=== PATIENT | female | born 1970 | race Caucasian/White ===

== ENCOUNTER 2020-04-19 16:01 | Outpatient (CLI) | payer OTHER, SELFPAY | END 2020-04-19 16:02 | disposition home or self-care (01) | LOC: ANHCOVIDVC 16:01 | PROVIDERS: PCP Family Medicine | DX: Z23 Encounter for immunization (principal) | CPT/HCPCS: 0001A; 91300 ==

== ENCOUNTER 2020-05-10 16:04 | Outpatient (CLI) | payer OTHER, SELFPAY | END 2020-05-10 16:05 | disposition home or self-care (01) | LOC: ANHCOVIDVC 16:04 | PROVIDERS: PCP Family Medicine | DX: Z23 Encounter for immunization (principal) | CPT/HCPCS: 0002A; 91300 ==

== ENCOUNTER 2021-05-08 01:38 | Day surgery (SDC) | payer OTHER, SELFPAY ==
[2021-05-01 16:08] VITALS: BMI 40.8
--- NOTE | 2021-05-07 14:49 | PM.HPGS ---
History of Present Illness History of Present Illness Consent: Risks, benefits, and alternatives have been discussed and questions answered. Patient agrees to proceed with procedure. Chief complaint: neoplasm screening Narrative: Sandra Soliman is a 51 year old female referred for colon cancer screening. Review of Systems Review of Systems: All systems reviewed & are unremarkable except as noted in HPI and below PMFSH Social History Social History Smoking status: Never smoker Alcohol intake: former Substance use: never Substance use type: does not use Living arrangements: with family Spiritual care concerns: No Meds Home Medications and Allergies Home Medications Medication Instructions Recorded Confirmed Type amlodipine 5 mg PO DAILY 05/01/21 05/01/21 History aripiprazole 15 mg PO DAILY 05/01/21 05/01/21 History bupropion HCl 150 mg PO DAILY 05/01/21 05/01/21 History cyanocobalamin (vitamin B-12) 1,000 mcg IM MONTHLY 05/01/21 05/01/21 History doxepin 25 mg PO QPM 05/01/21 05/01/21 History ferrous gluconate 240 mg PO BID 05/01/21 05/01/21 History fluoxetine 60 mg PO DAILY 05/01/21 05/01/21 History gabapentin 300 mg PO QPM 05/01/21 05/01/21 History meclizine 25 mg PO PRN PRN 05/01/21 05/01/21 History metoprolol succinate 100 mg PO DAILY 05/01/21 05/01/21 History pantoprazole 40 mg PO DAILY 05/01/21 05/01/21 History topiramate 50 mg PO BID 05/01/21 05/01/21 History trazodone 50 mg PO HS PRN 05/01/21 05/01/21 History Allergies Allergy/AdvReac Type Severity Reaction Status Date / Time Sulfa (Sulfonamide Allergy Mild HYPER Verified 11/08/18 10:50 Antibiotics) codeine AdvReac Mild Gastrointestinal Verified 05/01/21 16:09 Upset Exam Resp: Auscultation: clear to auscultation bilaterally Cardio: Rate: regular rate Rhythm: regular rhythm GI: GI Palp: Yes Soft to palpation and No Tenderness to palpation present (GI) Assessment and Plan Assessment and plan (1) Colon cancer screening: Code(s): Z12.11 - Encounter for screening for malignant neoplasm of colon Status: Acute Assessment and Plan: Colonoscopy with possible biopsy or polypectomy or cautery or injection of substances.
[2021-05-08 12:21] VITALS: BP 142/90; PULSE 77; RESP 17; TEMP 36.1; O2SAT 96; BMI 40.1
[2021-05-08] MEDS: LACTATED RINGERS 1,000 ML 150 ML IV CONT (12:25)
--- NOTE | 2021-05-08 13:21 | P.PNAN_ITS ---
Anes - Initial Pre Proc Eval Procedure: Operation Date: 05/08/21 13:30 Proposed Procedures p Screening Colonoscopy - Max Nath MD Date/Time: 05/08/21 13:21 Surgeon: Max Nath MD Pre Op Diagnosis: neoplasm screening Patient Data Age: 51 Gender: F Height: 1.65 m Weight: 109.6 kg Last Vital Signs Temp 97 F L 05/08/21 12:21 Pulse 77 05/08/21 12:21 Resp 17 05/08/21 12:21 BP 142/90 H 05/08/21 12:21 Pulse Ox 96 05/08/21 12:21 Allergies Allergy/AdvReac Type Severity Reaction Status Date / Time Sulfa (Sulfonamide Allergy Mild HYPER Verified 05/08/21 12:19 Antibiotics) escitalopram Allergy Unknown Verified 05/08/21 12:19 codeine AdvReac Mild Gastrointestinal Verified 05/08/21 12:19 Upset lisinopril AdvReac Cough Verified 05/08/21 12:19 Home Medications Medication Instructions Recorded Confirmed Type amlodipine 5 mg PO DAILY 05/01/21 05/08/21 History aripiprazole 15 mg PO DAILY 05/01/21 05/08/21 History bupropion HCl 150 mg PO DAILY 05/01/21 05/08/21 History cyanocobalamin (vitamin B-12) 1,000 mcg IM MONTHLY 05/01/21 05/08/21 History doxepin 25 mg PO QPM 05/01/21 05/08/21 History ferrous gluconate 240 mg PO BID 05/01/21 05/08/21 History fluoxetine 60 mg PO DAILY 05/01/21 05/08/21 History gabapentin 300 mg PO QPM 05/01/21 05/08/21 History meclizine 25 mg PO PRN PRN 05/01/21 05/08/21 History metoprolol succinate 100 mg PO DAILY 05/01/21 05/08/21 History pantoprazole 40 mg PO DAILY 05/01/21 05/08/21 History topiramate 50 mg PO BID 05/01/21 05/08/21 History trazodone 50 mg PO HS PRN 05/01/21 05/08/21 History Patient hx anesthesia problems: none Family hx anesthesia problems: none Results Review: All pre-operative results and documents have been reviewed as part of the pre-operative evaluation. [facility] Social History Social History Smoking status: Never smoker Alcohol intake: former Substance use: never Substance use type: does not use Living arrangements: with family Spiritual care concerns: No Anes - Eval Final PreProcedure Day of Procedure 05/08/21 13:21 Patient weight: morbidly obese Heart: regular rate and rhythm Lungs: clear to auscultation Airway: Mallampati scale class III Neurological: alert and oriented Last oral intake: >/= 8 hours ASA classification: IV Emergent: no Anesthetic plan: proceed Anesthesia type and monitoring: general GIVS and standard monitoring Results Review: All pre-operative results and documents have been reviewed as part of the pre-operative evaluation. Informed Consent: The patient's anesthetic plan and its attendant risks and benefits were discussed with the patient/family/POA. Questions were solicited and answers provided to the satisfaction of the patient/family/POA.
[2021-05-08 13:54] VITALS: BP 84/50; PULSE 65; RESP 14; O2SAT 96
[2021-05-08 14:04] VITALS: BP 91/50; PULSE 66; RESP 16; O2SAT 96
[2021-05-08 14:14] VITALS: BP 101/60; PULSE 72; RESP 18; O2SAT 99
== END 2021-05-08 14:28 | disposition home or self-care (01) ==
PROVIDERS: PCP Family Medicine; Visit Provider Internal Medicine Gastroenterology
PROC: 0DJD8ZZ Inspection of Lower Intestinal Tract, Via Natural or Artificial Opening Endoscopic (ICD-10-PCS; CPT 45378; principal; 2021-05-08 13:30)
DX: Z12.11 Encounter for screening for malignant neoplasm of colon (principal); K57.30 Diverticulosis of large intestine without perforation or abscess without bleeding; K63.5 Polyp of colon; E66.01 Morbid (severe) obesity due to excess calories; Z68.41 Body mass index [BMI] 40.0-44.9, adult
CPT/HCPCS: 45385; 88305; J2704; J7120

== ENCOUNTER 2021-09-13 10:21 | Emergency (ER) | payer OTHER, SELFPAY ==
[2021-09-13 10:37] VITALS: BP 139/82; PULSE 85; RESP 18; TEMP 36.8; O2SAT 97
--- NOTE | 2021-09-13 11:28 | PC.NURSE ---
11:21- Contacted spouse Nico , with pts permission to verify current medication list.
--- NOTE | 2021-09-13 11:56 | ED.GENADULT ---
HPI - General Adult General Chief complaint: Upper Respiratory Infection Stated complaint: covid symptoms History of Present Illness HPI narrative: Patient is a 51-year-old obese female who presents to the [facility] via POV for evaluation of COVID-like symptoms X5 days. Additionally, she reports chest congestion, chest feels tight , and vomiting. She reports 2 episodes of vomiting clear liquid since onset. Vomiting is what prompted today's visit. She was exposed to COVID by her daughter. Mucinex provides some relief. Dairy products worsen symptoms. She denies a history of liver and kidney insufficiency. She is fully vaccinated against COVID. She has not received booster. Patient reports she was hospitalized for COVID and 2019. She states her hospitalization duration was approximately 2 weeks. Related Data Home Medications Medication Instructions Recorded Confirmed amlodipine 5 mg tablet 5 mg PO DAILY 05/01/21 09/13/21 aripiprazole 15 mg tablet 15 mg PO DAILY 05/01/21 09/13/21 bupropion HCl 150 mg 24 hr tablet, 150 mg PO DAILY 05/01/21 09/13/21 extended release doxepin 25 mg capsule 25 mg PO QPM 05/01/21 09/13/21 ferrous gluconate 240 mg (27 mg 240 mg PO BID 05/01/21 09/13/21 iron) tablet fluoxetine 20 mg capsule 60 mg PO DAILY 05/01/21 09/13/21 gabapentin 300 mg capsule 300 mg PO QPM 05/01/21 09/13/21 metoprolol succinate 100 mg 100 mg PO DAILY 05/01/21 09/13/21 tablet,extended release 24 hr pantoprazole 40 mg tablet,delayed 40 mg PO DAILY 05/01/21 09/13/21 release topiramate 50 mg tablet 50 mg PO BID 05/01/21 09/13/21 risperidone 1 mg tablet (Risperdal) 1 mg PO HS 09/13/21 09/13/21 Allergies Allergy/AdvReac Type Severity Reaction Status Date / Time Sulfa (Sulfonamide Allergy Mild HYPER Verified 09/13/21 10:53 Antibiotics) escitalopram Allergy Unknown Verified 09/13/21 10:53 codeine AdvReac Mild Gastrointestinal Verified 09/13/21 10:53 Upset lisinopril AdvReac Cough Verified 09/13/21 10:53 Review of Systems Review of Systems: Denies history of COPD, bronchitis, asthma, and pneumonia. Denies current/past tobacco use. Pertinent negatives: fever, sweats, chills, change in appetite, fatigue, skin color changes, headache, nasal congestion/discharge, dizziness, lymphadenopathy, sinus problems, ear pain/drainage, chest pain, heart murmurs, heart palpitations, shortness of breath, wheezing, cyanosis, hemoptysis, hoarseness, orthopnea, pleuritic pain, nausea, vomiting, diarrhea, and myalgias. PMF Past Medical History Medical History (Updated 09/13/21 @ 12:14 by NEHEMIAH Hayden, ) Anxiety Depression GERD (gastroesophageal reflux disease) Social History Social History Smoking status: Never smoker Alcohol intake: former Substance use: never Substance use type: does not use Spiritual care concerns: No Exam Narrative: GENERAL: Well-appearing, well-nourished, and in no acute distress. HEAD: Normocephalic, atraumatic. No sinus tenderness or facial swelling appreciated. EYES: PERRLA and EOMI. No evidence of erythema, swelling, or drainage. ENT: Bilateral external ears and ear canals normal. Bilateral TMs are normal.No TM perforation. Nares clear, no rhinorrhea or epistaxis. Bilateral turbinates are moderately erythematous and swollen. Mucous membranes moist and pink. Uvula is midline without erythema and swelling. No evidence of petechial rash, cobblestoning, lesions, ulcers, erythema, swelling, exudates, peritonsillar abscess, tenting, or drooling. Breath odor and voice normal. NECK: Supple. No Lymphadenopathy or nuchal rigidity appreciated. CHEST: Bilateral lung shi are clear to auscultation. No respiratory distress. No evidence of cough or pleuritic cp upon examination. HEART: Regular rate and rhythm. No murmur, gallop, or rub heard. EXTREMITIES: Normal range of motion. No edema. SKIN: Warm, dry, no
== END 2021-09-13 11:51 | disposition home or self-care (01) ==
PROVIDERS: Emergency Provider Nurse Practitioner Family; PCP Family Medicine
DX: U07.1 COVID-19 (principal); K21.9 Gastro-esophageal reflux disease without esophagitis; F41.9 Anxiety disorder, unspecified; F32.A Depression, unspecified
CPT/HCPCS: 87426; 99213; C9803; G0463

== ENCOUNTER 2021-10-18 10:04 | Emergency (ER) | payer OTHER, SELFPAY ==
--- NOTE | 2021-10-18 10:14 | ED.BACK ---
HPI - Back Pain/Injury General Chief Complaint: Skin/Abscess/Foreign Body Stated Complaint: Lower Back Time Seen by Provider: 10/18/21 10:14 History of Present Illness HPI Narrative: Sandra Soliman is a 51 yo female with tension, GERD, anxiety depression, who comes here with an infected cyst on the right mid back; area 5x5 area, firm, tender- stated started yesterday Related Data Home Medications Medication Instructions Recorded Confirmed amlodipine 5 mg tablet 5 mg PO DAILY 05/01/21 10/18/21 aripiprazole 15 mg tablet 15 mg PO DAILY 05/01/21 10/18/21 bupropion HCl 150 mg 24 hr tablet, 150 mg PO DAILY 05/01/21 09/13/21 extended release doxepin 25 mg capsule 25 mg PO QPM 05/01/21 09/13/21 ferrous gluconate 240 mg (27 mg 240 mg PO BID 05/01/21 10/18/21 iron) tablet fluoxetine 20 mg capsule 60 mg PO DAILY 05/01/21 10/18/21 gabapentin 300 mg capsule 300 mg PO QPM 05/01/21 09/13/21 metoprolol succinate 100 mg 100 mg PO DAILY 05/01/21 10/18/21 tablet,extended release 24 hr pantoprazole 40 mg tablet,delayed 40 mg PO DAILY 05/01/21 10/18/21 release topiramate 50 mg tablet 50 mg PO BID 05/01/21 09/13/21 risperidone 1 mg tablet (Risperdal) 1 mg PO HS 09/13/21 10/18/21 syringe with needle 3 mL 25 x 5/8 10/18/21 10/18/21 (BD Luer-Sree Syringe) terbinafine HCl 250 mg tablet 250 mg PO DAILY 10/18/21 10/18/21 Allergies Allergy/AdvReac Type Severity Reaction Status Date / Time Sulfa (Sulfonamide Allergy Mild HYPER Verified 10/18/21 10:06 Antibiotics) escitalopram Allergy Unknown Verified 10/18/21 10:06 codeine AdvReac Mild Gastrointestinal Verified 10/18/21 10:06 Upset lisinopril AdvReac Cough Verified 10/18/21 10:06 Review of Systems Review of Systems: CONSTITUTIONAL: Denies fever, chills, sweats. EYES: Denies visual changes, redness, discharge. ENT: Denies rhinorrhea, congestion, sore throat, otalgia. CARDIOVASCULAR: Denies chest pain, palpitations, edema. RESPIRATORY: Denies dyspnea, wheezing, cough GASTROINTESTINAL: Denies abdominal pain, nausea, vomiting, diarrhea. GENITOURINARY: Denies dysuria, hematuria, abnormal discharge SKIN: Denies rash or itching. Cyst on mid right back NEUROLOGIC: Denies numbness, or focal weakness. PSYCHIATRIC: Denies anxiety or depression. [facility] Past Medical History Medical History Anxiety Depression GERD (gastroesophageal reflux disease) Social History Social History Smoking status: Never smoker Alcohol intake: former Substance use: never Substance use type: does not use Spiritual care concerns: No Comments At time of signature, I agree with nursing past medical, surgical, social and family history. There is no relevant family history pertinent to the presenting complaint. Exam Narrative: GENERAL: This is a well-nourished, well-developed patient, in mild distress. Flat affect HEAD: normocephalic, atraumatic. EYES: PERRL. Sclera clear/white. Vision is grossly intact. EARS: External ears normal, auditory canals clear and without drainage, TMs normal without perforation. Hearing grossly intact. NOSE: External nose normal without nasal discharge, nares without redness, no rhinorrhea. THROAT: Mucous membranes moist, NECK: Neck supple, non-tender CARDIOVASCULAR: Regular rate and rhythm without murmurs, gallops, or rubs. RESPIRATORY: Clear to auscultation. Breath sounds equal bilaterally. No wheezes, rales, or rhonchi. GASTROINTESTINAL: Not done, SKIN: warm, intact with no suspicious lesions or rash, good texture and turgor. Infected cyst on right mid back that is tender measures 5 x 5, fluctuant NEURO: awake, alert, and oriented to person, place and time. There were no obvious focal neurologic abnormalities. Steady gait EXTREMITIES: Normal range of motion. BACK: Nontender without deformity Course Course Emergency Course: Patient here with
[2021-10-18 10:17] VITALS: BP 138/88; PULSE 74; RESP 18; TEMP 36.8; O2SAT 97
[2021-10-18 10:24] VITALS: BP 138/88; PULSE 74; RESP 18; TEMP 36.8; O2SAT 97
== END 2021-10-18 10:53 | disposition home or self-care (01) ==
PROVIDERS: Emergency Provider Nurse Practitioner; PCP Family Medicine
DX: L02.212 Cutaneous abscess of back [any part, except buttock and flank] (principal); K21.9 Gastro-esophageal reflux disease without esophagitis; F41.9 Anxiety disorder, unspecified; F32.A Depression, unspecified
CPT/HCPCS: 10060; 87070; 87075; 87076; 87205; 99213; G0463

== ENCOUNTER 2021-11-14 11:03 | Emergency (ER) | payer OTHER, SELFPAY ==
[2021-11-14 11:12] VITALS: BP 130/77; PULSE 77; RESP 24; TEMP 37; O2SAT 98
[2021-11-14 11:16] VITALS: BP 130/77; PULSE 77; RESP 24; TEMP 37; O2SAT 98
--- NOTE | 2021-11-14 11:20 | ED.FEMALEGU ---
HPI - Female Genitourinary General Chief complaint: Urogenital-Female Stated complaint: Possible UTI Time Seen by Provider: 11/14/21 11:20 Source: patient Mode of arrival: ambulatory Limitations: no limitations History of Present Illness HPI Narrative: Ms. Teran is a 51-year-old female patient presenting to the clinic today with complaints of possible UTI. She reports that last night she began having some urinary urgency, frequency and possibly some blood from the urine. She reports that this continued throughout the night into today she also reports some left flank pain without fever or chills. She denies using any Azo or Pyridium. Related Data Home Medications Medication Instructions Recorded Confirmed amlodipine 5 mg tablet 5 mg PO DAILY 05/01/21 11/14/21 aripiprazole 15 mg tablet 15 mg PO DAILY 05/01/21 11/14/21 bupropion HCl 150 mg 24 hr tablet, 150 mg PO DAILY 05/01/21 11/14/21 extended release doxepin 25 mg capsule 25 mg PO QPM 05/01/21 11/14/21 ferrous gluconate 240 mg (27 mg 240 mg PO BID 05/01/21 11/14/21 iron) tablet fluoxetine 20 mg capsule 60 mg PO DAILY 05/01/21 11/14/21 gabapentin 300 mg capsule 300 mg PO QPM 05/01/21 11/14/21 metoprolol succinate 100 mg 100 mg PO DAILY 05/01/21 11/14/21 tablet,extended release 24 hr pantoprazole 40 mg tablet,delayed 40 mg PO DAILY 05/01/21 11/14/21 release topiramate 50 mg tablet 50 mg PO BID 05/01/21 11/14/21 risperidone 1 mg tablet (Risperdal) 1 mg PO HS 09/13/21 11/14/21 syringe with needle 3 mL 25 x 5/8 10/18/21 10/18/21 (BD Luer-Sree Syringe) terbinafine HCl 250 mg tablet 250 mg PO DAILY 10/18/21 11/14/21 Allergies Allergy/AdvReac Type Severity Reaction Status Date / Time Sulfa (Sulfonamide Allergy Mild HYPER Verified 11/14/21 11:09 Antibiotics) escitalopram Allergy Unknown Verified 11/14/21 11:09 codeine AdvReac Mild Gastrointestinal Verified 11/14/21 11:09 Upset lisinopril AdvReac Cough Verified 11/14/21 11:09 Review of Systems Review of Systems: Pertinent positives per HPI. Patient denies any fever, chills, rash, headache, visual changes, dizziness, cough, runny nose, sore throat, shortness of breath, chest pain, palpitations, nausea, vomiting, diarrhea, constipation, PMFSH Past Medical History Medical History Anxiety Depression GERD (gastroesophageal reflux disease) Social History Social History Smoking status: Never smoker Alcohol intake: former Substance use: never Substance use type: does not use Spiritual care concerns: No Comments At the time of my signature, I reviewed and agree with the nursing past medical, surgical, social, and family history. There is no relevant family history pertinent to the patient complaint. Exam Narrative: General: Well-developed, well nourished, in no apparent distress. Head: Normocephalic, atraumatic. Cardio: Regular rate and rhythm, s1 and s2 normal, no murmur appreciated. Resp: Clear to auscultation bilaterally, no rhonchi, rales, wheezing or rubs. Abdomen: Soft, pliable, bowel sounds present in all quadrants, tender to palpation over the suprapubic area, no organomegly, positive left CVAT tenderness. Course Course Emergency Course: Portions of this record may have been created with voice recognition software. Level of Care: Express Care Visit Vital Signs Vital signs: Vital Signs Temperature 37.0 C 11/14/21 11:12 Pulse Rate 77 11/14/21 11:12 Respiratory Rate 24 H 11/14/21 11:12 Blood Pressure 130/77 11/14/21 11:12 Pulse Oximetry 98 11/14/21 11:12 Oxygen Delivery Room Air 11/14/21 11:12 Temperature 37.0 C 11/14/21 11:16 Pulse Rate 77 11/14/21 11:16 Respiratory Rate 24 H 11/14/21 11:16 Blood Pressure 130/77 11/14/21 11:16 Pulse Oximetry 98 11/14/21 11:16 Oxygen Delivery Room Air 11/14/21 11:16 Queta
== END 2021-11-14 11:29 | disposition home or self-care (01) ==
PROVIDERS: Emergency Provider Nurse Practitioner Family; PCP Family Medicine
DX: N12 Tubulo-interstitial nephritis, not specified as acute or chronic (principal); F41.9 Anxiety disorder, unspecified; F32.A Depression, unspecified; K21.9 Gastro-esophageal reflux disease without esophagitis
CPT/HCPCS: 81003; 87077; 87086; 87186; 99213; G0463

== ENCOUNTER 2023-01-07 08:32 | Emergency (ER) | payer OTHER, SELFPAY ==
--- NOTE | ~2023-01-07 | XR_ITS ---
EXAMINATION: XR abdomen/kub 1V DATE: 01/07/2023 08:56 INDICATION: Right flank pain. TECHNIQUE: A supine view of the abdomen on 2 radiographs was obtained. COMPARISON: CT abdomen and pelvis 05/18/2009 FINDINGS: There are no dilated loops of bowel. There is a small volume of stool in the colon. There i s no visible urolithiasis. IMPRESSION: 1. No visible urolithiasis. Reviewed, dictated and finalized at location A. NIC CHEMIST IMPRESSION: 1. No visible urolithiasis.
--- NOTE | 2023-01-07 08:34 | ED.URI ---
HPI - URI/Sore Throat General Chief Complaint: Ear Stated Complaint: Rt Side Pain,Bilateral Ear Irritation Time Seen by Provider: 01/07/23 08:33 Source: patient Mode of arrival: ambulatory Limitations: no limitations History of Present Illness HPI Narrative: Sandra is a 52-year-old female patient presenting to the clinic today with complaints of right-side pain and bilateral ear discomfort. She reports right side pain is been going on for approximately 2 weeks. States the pain is worse when she stands up. Pain is a sharp pain and rates it a 6/10 when it occurs and it is pretty constant. Also reports some urinary frequency. Denies any burning or incontinence. Bilateral ear irritation x 1 week. Denies any fever, chills, nasal congestion, or sore throat. Denies any blood in her stool or urine. Has been having less frequent bowel movements-normally has bowel movements daily but over the past few weeks she has been having it every 2 days. No diarrhea or hard stools. History of UTIs, kidney stones, GERD, hypertension, anxiety, and depression. Has had right ovary removed Related Data Home Medications Medication Instructions Recorded Confirmed amlodipine 5 mg tablet 5 mg PO DAILY 05/01/21 11/14/21 aripiprazole 15 mg tablet 15 mg PO DAILY 05/01/21 11/14/21 bupropion HCl 150 mg 24 hr tablet, 150 mg PO DAILY 05/01/21 11/14/21 extended release doxepin 25 mg capsule 25 mg PO QPM 05/01/21 11/14/21 ferrous gluconate 240 mg (27 mg 240 mg PO BID 05/01/21 11/14/21 iron) tablet fluoxetine 20 mg capsule 60 mg PO DAILY 05/01/21 11/14/21 gabapentin 300 mg capsule 300 mg PO QPM 05/01/21 11/14/21 metoprolol succinate 100 mg 100 mg PO DAILY 05/01/21 11/14/21 tablet,extended release 24 hr pantoprazole 40 mg tablet,delayed 40 mg PO DAILY 05/01/21 11/14/21 release topiramate 50 mg tablet 50 mg PO BID 05/01/21 11/14/21 risperidone 1 mg tablet (Risperdal) 1 mg PO HS 09/13/21 11/14/21 syringe with needle 3 mL 25 x 5/8 10/18/21 10/18/21 (BD Luer-Sere Syringe) terbinafine HCl 250 mg tablet 250 mg PO DAILY 10/18/21 11/14/21 Allergies Allergy/AdvReac Type Severity Reaction Status Date / Time Sulfa (Sulfonamide Allergy Mild HYPER Verified 11/14/21 11:09 Antibiotics) escitalopram Allergy Unknown Verified 11/14/21 11:09 codeine AdvReac Mild Gastrointestinal Verified 11/14/21 11:09 Upset lisinopril AdvReac Cough Verified 11/14/21 11:09 Review of Systems Review of Systems: Pertinent positives per HPI. Patient denies any fever, chills, rash, headache, visual changes, dizziness, cough, shortness of breath, chest pain, palpitations, nausea, vomiting, diarrhea, constipation, abdominal pain. [facility] Past Medical History Medical History Anxiety Depression GERD (gastroesophageal reflux disease) Social History Social History Smoking status: Never smoker Alcohol intake: former Substance use: never Substance use type: does not use Living arrangements: with family Spiritual care concerns: No Comments At the time of my signature, I reviewed and agree with the nursing past medical, surgical, social, and family history. There is no relevant family history pertinent to the patient complaint. Exam Narrative: General: Well-developed, well nourished, in no apparent distress Head: Normocephalic, atraumatic Eyes: Pupils equally round and reactive to light bilaterally, EOM intact, sclera and conjunctive clear, no discharge, lids normal Ears: TMs intact and clear, ear canals clear, no drainage, grossly hearing normal. Nose: Nares patent, no discharge, no inflammation, no sinus tenderness. Mouth: Oral pharynx without lesions or masses, good dentition, MMM. Neck: Supple, trachea midline, no enlargement of anterior or posterior cervical nodes, no thyroid masses or goiter palpable. Cardio: Regular rate a
[2023-01-07 08:35] VITALS: BP 144/92; PULSE 74; RESP 20; TEMP 36.4; O2SAT 99
== END 2023-01-07 09:16 | disposition home or self-care (01) ==
PROVIDERS: Emergency Provider Nurse Practitioner Family; PCP Family Medicine
DX: N30.01 Acute cystitis with hematuria (principal); B96.20 Unspecified Escherichia coli [E. coli] as the cause of diseases classified elsewhere; H69.93 Unspecified Eustachian tube disorder, bilateral; F41.9 Anxiety disorder, unspecified; F32.A Depression, unspecified; K21.9 Gastro-esophageal reflux disease without esophagitis; I10 Essential (primary) hypertension
CPT/HCPCS: 74018; 81003; 87077; 87086; 87186; 99213; G0463

== ENCOUNTER 2023-04-09 09:47 | Emergency (ER) | payer OTHER, SELFPAY ==
[2023-04-09 09:59] VITALS: BP 131/74; PULSE 69; RESP 18; TEMP 36.4; O2SAT 97
--- NOTE | 2023-04-09 10:13 | ED.SKABFB ---
HPI - Skin/Abscess/Foreign Bdy General Chief complaint: Skin/Abscess/Foreign Body Stated complaint: bump under right arm pit Time Seen by Provider: 04/09/23 10:13 Source: patient Mode of arrival: ambulatory Limitations: no limitations History of Present Illness HPI narrative: 53-year-old female presents with complaint red swollen tender area to right axilla area. Noticed last night. Afebrile. No other complaints today. All systems reviewed and negative except as noted above. Related Data Home Medications Medication Instructions Recorded Confirmed amlodipine 5 mg tablet 5 mg PO DAILY 05/01/21 04/09/23 aripiprazole 15 mg tablet 15 mg PO DAILY 05/01/21 04/09/23 bupropion HCl 150 mg 24 hr tablet, 150 mg PO DAILY 05/01/21 04/09/23 extended release doxepin 25 mg capsule 25 mg PO QPM 05/01/21 11/14/21 ferrous gluconate 240 mg (27 mg 240 mg PO BID 05/01/21 04/09/23 iron) tablet fluoxetine 20 mg capsule 60 mg PO DAILY 05/01/21 04/09/23 gabapentin 300 mg capsule 300 mg PO QPM 05/01/21 04/09/23 metoprolol succinate 100 mg 100 mg PO DAILY 05/01/21 04/09/23 tablet,extended release 24 hr pantoprazole 40 mg tablet,delayed 40 mg PO DAILY 05/01/21 04/09/23 release topiramate 50 mg tablet 50 mg PO BID 05/01/21 04/09/23 syringe with needle 3 mL 25 x 5/8 10/18/21 10/18/21 (BD Luer-Sree Syringe) Allergies Allergy/AdvReac Type Severity Reaction Status Date / Time codeine AdvReac Mild Gastrointestinal Verified 04/09/23 10:06 Upset Sulfa (Sulfonamide AdvReac Mild HYPER Verified 04/09/23 10:06 Antibiotics) escitalopram AdvReac Unknown Verified 04/09/23 10:06 lisinopril AdvReac Cough Verified 04/09/23 10:06 Review of Systems Review of Systems: CONSTITUTIONAL: Denies fever, chills, or sweats. EYES: Denies visual changes, redness, or discharge. ENT: Denies rhinorrhea, congestion, sore throat, or otalgia. CARDIOVASCULAR: Denies chest pain, palpitations, or edema. RESPIRATORY: Denies cough or dyspnea. GASTROINTESTINAL: Denies abdominal pain, nausea, vomiting, or diarrhea. GENITOURINARY: Denies dysuria or hematuria. SKIN: Denies rash or itching. Reports abscess to R axilla area. MUSCULOSKELETAL: Denies back pain, joint pain, or myalgia. NEUROLOGIC: Denies headache, numbness, or weakness. PSYCHIATRIC: Denies anxiety or depression. All other systems reviewed are negative, except as documented in HPI. [facility] Past Medical History Medical History Anxiety Depression GERD (gastroesophageal reflux disease) Social History Social History Smoking status: Never smoker Alcohol intake: former Substance use: never Substance use type: does not use Living arrangements: with family Spiritual care concerns: No Comments At time of signature, agree with nursing past medical, surgical, social and family history. There is no relevant family history pertinent to the presenting complaint. Exam Narrative: GENERAL: This is a well-nourished, well-developed patient, in no apparent distress. HEAD: normocephalic, atraumatic. EYES: PERRL. Sclera clear/white. Vision is grossly intact. EARS: External ears normal NOSE: External nose normal NECK: Neck supple, non-tender without lymphadenopathy, masses or thyromegaly. CARDIOVASCULAR: Regular rate and rhythm without murmurs, gallops, or rubs. RESPIRATORY: Clear to auscultation. Breath sounds equal bilaterally. No wheezes, rales, or rhonchi. SKIN: warm, Dry, intact with no suspicious lesions or rash, good texture and turgor. 2cm fluctuance erythematous abscess to R side of thorax NEURO: awake, alert, and oriented to person, place and time. There were no obvious focal neurologic abnormalities. EXTREMITIES: No joint tenderness, effusion, or edema noted. Chest: Chest/axillae images: 1. abscess Course Course Level of Care: Express Care Vi
== END 2023-04-09 10:30 | disposition home or self-care (01) ==
PROVIDERS: Emergency Provider Nurse Practitioner Family; PCP Family Medicine
DX: L02.213 Cutaneous abscess of chest wall (principal); K21.9 Gastro-esophageal reflux disease without esophagitis; F41.9 Anxiety disorder, unspecified; F32.A Depression, unspecified
CPT/HCPCS: 10160; 87070; 87075; 87076; 87205; 99213; G0463

== ENCOUNTER 2024-05-25 08:10 | Emergency (ER) | payer OTHER, SELFPAY ==
--- OUTSIDE RECORDS SUMMARY | 2024-05-25 08:17 | XMS_ITS | Encounter Summary ---
Author Organization [facility] Facility Care Team Providers Care Safety Tech Name Role Phone Anupam Rae DO Primary Care Provider + Ronal Wallace DO Unavailable [phone] Chuck Medeiros DO Unavailable Noy Nunez WAGE ADJUSTER Unavailable [phone] Krystina Perea MD Unavailable Harika Guerra RN Unavailable [phone] Jose Alberto Garcia Unavailable [phone] Encounter Details Date Type Department Care Team (Latest Contact Info) Description 07/12/2014 Orders Only [facility] Provider, MD Mercedes [address] [place] [id number] Social History Tobacco Use Types Packs/Day Years Used Date Smoking Tobacco: Never Assessed Comments Unknown Sex and Gender Information Value Date Recorded Sex Assigned at Not on file Legal Sex Female 5:07 PM CHIEF FINANCIAL OFFICER Gender Identity Female 12/23/2020 2:56 PM CHIEF FINANCIAL OFFICER Sexual Orientation Straight 12/23/2020 2: 56 PM CHIEF FINANCIAL OFFICER documented as of this encounter Plan of Treatment Not on file documented as of this encounter Procedures Procedure Name Priority Date/Time Associated Diagnosis Comments CARDIOLOGY REPORT 05/21/2016 12: 00 AM CDT documented in this encounter Results * CARDIOLOGY REPORT (05/21/2016 12:00 AM CDT) Anatomical Region Laterality Modality Other Narrative 05/21/2016 12:00 AM CDT Ordered by an unspecified provider. us Historical Provider [facility] JENI SHEPARD Final Result documented in this encounter Visit Diagnoses Not on filedocumented in this encounter Additional Health Concerns Infection Onset Date Last Indicated Resolved Time COVID19 11/06/2019 11/06/2019 11/20/2019 3:06 AM CDT COVID: Recovered Comment:Added based on recent COVID infection. 11/20/2019 11/23/2019 03/19/2020 3:[address] COVID: Suspected 07/13/2022 07/13/2022 07/13/2022 1:11 PM CDT documented as of this encounter Care Teams Safety Tech Relationship Specialty Start Date End Date Anupam Rae, PCP - General Family Medicine 05/23/18 Ronal Wallace DO [address] [place] [address] Referring Physician Psychiatry 10/17/20 04/05/23 Chuck Medeiros DO [address] [place] [address] Consulting Physician Obstetrics and Gynecology 10/29/20 04/05/23 Noy Nunez, HEIDI [address] [place] [address] Medical Oncologist/Mechanical Spreader Operator Medical Oncology 02/14/21 Krystina Perea MD [address] [place] [address] Consulting Physician Pain Management 10/27/22 Harika Guerra, RN [address] [place] [address] Company Controller 11/22/22 12/28/22 Jose Alberto Garcia PA [address] [place] [address] Physician Press Machine Operator Emergency Medicine 04/05/23 4 documented as of this encounter
--- OUTSIDE RECORDS SUMMARY | 2024-05-25 08:17 | XMS_ITS | Encounter Summary ---
Author Organization [facility] Facility Care Team Providers Care Tire Fabricator Name Role Phone Anupam Rae DO Primary Care Provider + Ronal Wallace DO Unavailable [phone] Chuck Medeiros DO Unavailable [phone] Noy Nunez AIR TESTER Unavailable [phone] Krystina Perea MD Unavailable Harika Guerra RN Unavailable Jose Alberto Garcia Unavailable [phone] Encounter Details Date Type Department Care Team (Latest Contact Info) Description 08/15/2012 Orders Only [facility]IN[facility] Provider, MD Mercedes [address] [place] [address] Social History Tobacco Use Types Packs/Day Years Used Date Smoking Tobacco: Never Assessed Comments Unknown Sex and Gender Information Value Date Recorded Sex Assigned at Not on file Legal Sex Female 5:07 PM ENTERPRISE SOLUTIONS ARCHITECT Gender Identity Female 12/23/2020 2:56 PM ENTERPRISE SOLUTIONS ARCHITECT Sexual Orientation Straight 12/23/2020 2: 56 PM ENTERPRISE SOLUTIONS ARCHITECT documented as of this encounter Plan of Treatment Not on file documented as of this encounter Procedures Procedure Name Priority Date/Time Associated Diagnosis Comments COLONOSCOPY - SCAN 08/15/2012 12 :00 AM CDT documented in this encounter Results * COLONOSCOPY - SCAN (08/15/2012 12:00 AM CDT) Narrative 08/15/2012 12:00 AM CDT Ordered by an unspecified provider. us Historical Provider Final Res ult documented in this encounter Visit Diagnoses Not on filedocumented in this encounter Additional Health Concerns Infection Onset Date Last Indicated Resolved Time COVID19 11/06/2019 11/06/2019 11/20/2019 3:06 AM CDT COVID: Recovered Comment:Added based on recent COVID infection. 11/20/2019 11/23/2019 03/19/2020 3:[address] COVID: Suspected 07/13/2022 07/13/2022 07/13/2022 1:11 PM CDT documented as of this encounter Care Teams Tire Fabricator Relationship Specialty Start Date End Date Anupam Rae, PCP - General Family Medicine 05/23/18 Ronal Wallace DO [address] [place] [address] Referring Physician Psychiatry 10/17/20 04/05/23 Chuck Medeiros, [address] [place] [address] Consulting Physician Obstetrics and Gynecology 10/29/20 04/05/23 Noy Nunez, HEIDI [address] [place] [address] Medical Oncologist/Upholsterer Apprentice Medical Oncology 02/14/21 Krystina Perea MD [address] [place] [address] Consulting Physician Pain Management 10/27/22 Harika Guerra, RN [address] [place] [address] [address] [place] [address] Instructional Support Services Director 11/22/22 12/28/22 Jose Alberto Garcia PA [address] [place] [address] Physician Manager Of Construction Emergency Medicine 04/05/23 4 documented as of this encounter
--- OUTSIDE RECORDS SUMMARY | 2024-05-25 08:17 | XMS_ITS | Encounter Summary ---
Author Organization [facility] Facility Care Team Providers Care Parcel Post Truck Driver Name Role Phone Anupam Rae DO Primary Care Provider + Ronal Wallace DO Unavailable [phone] Chuck Medeiros DO Unavailable Noy Nunez PAINT FACTORY WORKER Unavailable [phone] Krystina Perea MD Unavailable Harika Guerra RN Unavailable [phone] Jose Alberto Garcia Unavailable [phone] Encounter Details Date Type Department Care Team (Latest Contact Info) Description 05/16/2015 Orders Only [facility] Provider, MD Mercedes [address] [place] [address] Social History Tobacco Use Types Packs/Day Years Used Date Smoking Tobacco: Never Assessed Comments Unknown Sex and Gender Information Value Date Recorded Sex Assigned at Not on file Legal Sex Female 5:07 PM IRRIGATION FLUME LAYER Gender Identity Female 12/23/2020 2:56 PM IRRIGATION FLUME LAYER Sexual Orientation Straight 12/23/2020 2: 56 PM IRRIGATION FLUME LAYER documented as of this encounter Plan of Treatment Not on file documented as of this encounter Procedures Procedure Name Priority Date/Time Associated Diagnosis Comments SCAN - LABS 05/16/2015 12:00 AM CDT SCAN - LABS 05/16/2015 12:00 AM CDT SCAN - LABS 05/16/2015 12:00 AM CDT SCAN - LABS 05/16/2015 12:00 AM CDT SCAN - LABS 05/16/2015 12:00 AM CDT documented in this encounter Results * SCAN - LABS (05/16/2015 12:00 AM CDT) Narrative 05/16/2015 12:00 AM CDT Ordered by an unspecified provider. Historical Provider Final Res ult * SCAN - LABS (05/16/2015 12:00 AM CDT) Narrative 05/16/2015 12:00 AM CDT Ordered by an unspecified provider. Historical Provider Final Res ult * SCAN - LABS (05/16/2015 12:00 AM CDT) Narrative 05/16/2015 12:00 AM CDT Ordered by an unspecified provider. Historical Provider Final Res ult * SCAN - LABS (05/16/2015 12:00 AM CDT) Narrative 05/16/2015 12:00 AM CDT Ordered by an unspecified provider. [facility] Provider Final Res ult * SCAN - LABS (05/16/2015 12:00 AM CDT) Narrative 05/16/2015 12:00 AM CDT Ordered by an unspecified provider. Historical Provider Final Res ult documented in [...] documented as of this encounter Care Teams Parcel Post Truck Driver Relationship Specialty Start Date End Date Anupam Rae DO PCP - General Family Medicine 05/23/18 Ronal Wallace DO [address] [facility] [address] [place] [address] Referring Physician Psychiatry 10/17/20 04/05/23 Chuck Medeiros, DO [address] [facility] [address] [place] [address] Consulting Physician Obstetrics and Gynecology 10/29/20 04/05/23 Noy Nunez, HEIDI [address] [facility] [address] [place] [address] Medical Oncologist/Social Service Assistant Medical Oncology 02/14/21 Krystina Perea MD [address] [facility] [address] [place] [address] Consulting Physician Pain Management 10/27/22 Harika Guerra, GILBERT [address] [place] [address] [address] [place] [address] Clothes Model 11/22/22 12/28/22 Jose Alberto Garcia PA [address] [place] [address] [address] [place] [address] Physician Turn Down Attendant Emergency Medicine 04/05/23 4 documented as of this encounter
--- OUTSIDE RECORDS SUMMARY | 2024-05-25 08:17 | XMS_ITS | Data Portability ---
Author Organization TATIANA MARIONYvette Braun Address [address] [facility] [place] [address] Assessment No assessment recorded. Plan of Treatment Reminders Order Date Submit Date Provider Last Modified By Organization Details Last Modified Time Details Appointments ANY 2024 03:15P Ania Rae, DO Not available Not available Not available ANY 2024 03:00P Ania Rae, DO Not available Not available Not available Lab urinalysi s, dipstick 2024 025 In-Office Order, Internal Use Only DO Not Attach Compendium DO Not Attach Compendium, Do Not Delete/merge, [id number] 04/03/2024 16:03:18 Referral pain managemen t referral 2024 025 WALWORTHTAMIKO Perea MD, [address] [facility] [place], [address], 04/07/2024 10:30:43 Procedures None recorded. Surgeries None recorded. Imaging MRI, lumbar spine, w/o contrast 2024 025 [facility] Patient Access Centralized Scheduling, Centralized Scheduling, [address] [facility] [place], [address], 03/28/2024 10:29:44 XR, lumbar spine, 2 view 2023 024 [facility] ([facility]), [address] [facility] [place], [address], 01/24/2024 00:16:34 XR, humerus, 2 or more view - lt 2023 024 [facility] ([facility]), [address] [place], [address], 01/23/2024 23:10:10 XR, shoulder, 2 or more view 2023 024 [facility] ([facility]), [address] [place], [address], 01/23/2024 23:11:18 barium swallow study [email or web address] [place] [address] Patient Access Centralized Scheduling, Centralized Scheduling, [address] [place], [address], 05/24/2024 11:11:16 US, thyroid 2023 024 [facility] Patient Access Centralized Scheduling, Centralized Scheduling, [address] [facility] [place], [address], 10/22/2023 13:57:57 Medication Orders Zepbound 5 mg/0.5 mL subcutane ous pen injector 2024 025 [facility]2713, [address], [place], [address], 05/08/2024 13:22:44 tramadol 50 mg tablet 2024 025 [facility] #2713, [address], [place], [address], 03/14/2024 18:53:43 tizanidin e 4 mg tablet 2024 025 [facility] #2713, [address], [place], [address], 03/14/2024 18:12:48 Zepbound 2.5 mg/0.5 mL subcutane ous pen injector 2024 025 [facility], [address], [place], [address], 04/03/2024 16:42:30 cyclobenz aprine 5 mg tablet 2023 024 [facility] #2713, [address], [place], [address], 01/20/2024 13:58:32 Kenalog-8 0 80 mg/mL suspensio n for injection 2023 024 [email or web address] [facility] #2713, [address], [place], [address], 01/20/2024 09:43:35 Patient TargetsNo targets recorded. Patient Instructions Encounter Date Encounter Id Patient Instructions Last Modified By Organization Details Last Modified Time 02/24/2024 [id number] A healthy lifestyle: care instructions [email or web address] Not available 02/24/2024 18:34:40 03/14/2024 [id number] A healthy lifestyle: care instructions [email or web address] Not available 03/14/2024 15:47:07 04/03/2024 [id number] A healthy lifestyle: care instructions [email or web address] Not available 04/03/2024 16:59:05 Reason for Referral Pain Management Referral for Chronic low back pain Referring Physician: Anupam Rae, Family Medicine, Encounter Date: 04/03/2024 Results Created Date Observation Date Name Description Value Unit Range Abnormal Flag Note LastModifiedBy Organization Detail LastModifiedTime 12/01/1912/02/2023 TSH+F REE T4 TSH 1.39 mIU/L normal Refer ence Range > or = 20 Years 0.40- 4.50 Pregn poncho Range s First trime ster 0.26- 2.66 Secon d trime ster 0.55- 2.73 Third trime ster 0.43- 2.91 Not Available [facility] [address] , [place], [address], 12/02/2023 06:18:31 12/01/19 24 12/02/2023 TSH+F REE T4 T4, free 1.1 NG/dL 0.8-1. 8 normal Not Available [email or web address] [address] [place], [address], 12/02/2023 06:18:31 04/03/19 25 04/03/2024 urina lysis , dipst ick Leukocytes Trace Not Available In-Offi ce Order Internal Use Only DO Not Attach Compendium DO Not Attach Compendium, Do Not Delete/merge, 04/03/2024 15:46:21 04/03/19 25 04/03/2024 urina lysis , dipst ick Nitrite negati ve Not Available In-Office Order Internal Use Only DO Not Attach Compendium DO Not Attach Compendium, Do Not Delete/merge, 04/03/2024 15:46:21 04/03/19 25 04/03/2024 urina lysis , dipst ick Urobilinogen .2 Not Available In-Of fice Order Internal Use Only DO Not Attach Compendium DO Not Attach Compendium, Do Not Delete/merge, 04/03/2024 15:46:21 04/03/19 25 04/03/2024 urina lysis , dipst ick Protein Negati ve Not Available In-Office Order Internal Use Only DO Not Attach Compendium DO Not Attach Compendium, Do Not Delete/merge, 04/03/2024 15:46:21 04/03/19 25 04/03/2024 urina lysis , dipst ick pH 5.5 Not Available In-Office Order Internal Use Only DO Not Attach Compendium DO Not Attach Compendium, Do Not Delete/merge, 04/03/2024 15:46:21 04/03/19 25 04/03/2024 urina lysis , dipst ick Blood Non-He molyze d: Trace Not Available In-Office Order Internal Use Only DO Not Attach Compendium DO Not Attach Compendium, Do Not Delete/merge, 04/03/2024 15:46:21 04/03/19 25 04/03/2024 urina lysis , dipst ick Specific [place] 1.020 Not Available In-Off ice Order Internal Use Only DO Not Attach Compendium DO Not Attach Compendium, Do Not Delete/merge, 04/03/2024 15:46:21 04/03/19 25 04/03/2024 urina lysis , dipst ick Ketone Negati ve Not Available In-Office Order Internal Use Only DO Not Attach Compendium DO Not Attach Compendium, Do Not Delete/merge, 04/03/2024 15:46:21 04/03/19 25 04/03/2024 urina lysis , dipst ick Bilirubin Negati ve Not Available In-Office Order Internal Use Only DO Not Attach Compendium DO Not Attach Compendium, Do Not Delete/merge, 04/03/2024 15:46:21 04/03/19 25 04/03/2024 urina lysis , dipst ick Glucose Negati ve Not Available In-Office Order Internal Use Only DO Not Attach Compendium DO Not Attach Compendium, Do Not Delete/merge, 04/03/2024 15:46:21 04/03/19 25 04/03/2024 urina lysis , dipst ick Appearance Clear Not Available In-Offi ce Order Internal Use Only DO Not Attach Compendium DO Not Attach Compendium, Do Not Delete/merge, 04/03/2024 15:46:21 04/03/19 25 04/03/2024 urina lysis , dipst ick Color Pale Yellow Not Available In-Office Order Internal Use Only DO Not Attach Compendium DO Not Attach Compendium, Do Not Delete/merge, 04/03/2024 15:46:21 10/22/19 24 10/06/2023 US, thyro id No observ ation record ed. [address] [place], [address], 11/23/2023 14:15:22 01/23/20 24 01/20/2024 XR, shoul kenneth, 2 or more view No observ ation record ed. [address], [address], 01/27/2024 11:17:59 01/23/20 24 01/20/2024 XR, humer us, 2 or more view No observ ation record ed. [address], [address], 01/27/2024 11:18:00 01/23/20 24 01/20/2024 XR, lumba r spine , 2 view No observ ation record ed. [address], [address], 01/27/2024 11:18:00 03/28/19 25 03/27/2024 MRI, lumba r spine , w/o contr ast No observ ation record ed. [address] , [place], [address], 04/03/2024 15:36:46 Result Notes None recorded. Problems Name Problem SNOMED Code Status Onset Date Resolution Date Notes Provider Name and Address Organization Details Recorded Time Eczema 77249948 Active 2023 Anupam Rae DO Attn: Juliano lauren,[address] [facility], [place], [address], [facility] [place] - [facility] 4 16:01:47 Osteoarthritis 225771050 Active 2023 Anupam Rae DO Attn: Juliano lauren,[address] [facility], [place], [address], [place] - [facility] 4 16:01:49 Congestive heart failure 22268592 Active 2023 Anupam Rae DO Attn: Juliano lauren,[address] [facility], [place], [address], [place] [facility] 4 16:01:50 Migraine 29180089 Active 2023 Anupam Rae DO Attn: Juliano lauren,[address] [facility], [place], [address], [place] [facility] 4 16:01:50 History of calculus of kidney 106399247 Active 2023 Anupam Rae DO Attn: Juliano lauren,[address] [facility], [place], [address], [place] [facility] 4 16:01:52 Generalized anxiety disorder 83690321 Active 2023 Anupam Rae DO Attn: Juliano leonidas,[address] [facility], [place], [address], [place] [facility] 4 16:01:54 Essential hypertension 08664279 Active 2023 Anupam Rae DO Attn: Juliano lauren,[address] [facility], [place], [address], [place] [facility] 4 16:01:55 Chronic low back pain 020451750 Active 2023 Anupam Rae DO Attn: Juliano lauren,[address] [place], [address], [place] [facility] 4 16:01:57 Morbid obesity 388049869 Active 2023 Anupam Rae DO Attn: Juliano lauren,[address] [place], [address], [place] [facility] 4 16:01:58 Depressive disorder 81158252 Active 2023 Anupam Rae DO Attn: Juliano lauren,[address] [place], [address], [place] [facility] 4 16:02:03 Acute urinary tract infection 499133755 Active 2023 Anupam Rae DO Attn: Juliano lauren,[address] [place], [address], [place] [facility] 4 16:02:04 Obstructive sleep apnea syndrome 50011320 Active 2023 Anupam Rae DO Attn: Juliano lauren,[address] [place], [address], [place] [facility] 4 16:02:09 Chronic insomnia 036703962 Active 2023 Anupam Rae DO Attn: Yanirakevin lauren,[address] [place], [address], [facility] [place] - [facility] 4 16:02:11 Gastroesophage al reflux disease without esophagitis 570346831 Active 2023 Anupam Rae DO Attn: Yanirakevin lauren,[address] [place], [address], [place] - [facility] 4 16:02:13 Hyperlipidemia 63782129 Active 2023 Anupam Rae DO Attn: Yanirakevin lauren,[address] [place], [address], [facility] [place] - [facility] 4 16:02:14 Thyroid nodule 351915790 Active 2023 Anupam Rae DO Attn: Yanirakevin lauren,[address] [place], [address], [facility] [place] - [facility] 4 11:09:37 Dysphagia 12031098 Active 2023 Anupam Rae DO Attn: Yanirakevin lauren,[address] [place], [address], [facility] [place] - [facility] 4 11:09:59 Increased frequency of urination 397906886 Active 2024 Anupam Rae DO Attn: Yanirakevin lauren,[address] [place], [address], [place] - [facility] 5 16:19:29 Problem Notes None recorded. Procedures Surgical History Date Name Laterality Status Provider Name and Address Organization Details Recorded Time 4 Date of Last Mammogram completed GILBERT Javier [facility] 08/20/2023 10:59:10 excision of cyst of ovary completed GILBERT Javier [facility] 08/20/2023 10:59:59 insertion of renal artery stent completed GILBERT Javier [facility] 08/20/2023 11:00:19 Imaging Results Imaging Date Name Status LastModified by Organiz ation Details LastModified Time 10/06/2023 US, thyroid completed [facility] [address] [place], [address], 11/23/2023 14:15:22 01/20/2024 XR, shoulder, 2 or more view completed [address], [address], 01/27/2024 11:17:59 01/20/2024 XR, humerus, 2 or more view completed [address], [address], 01/27/2024 11:18:00 01/20/2024 XR, lumbar spine, 2 view completed [address], [address], 01/27/2024 11:18:00 03/27/2024 MRI, lumbar spine, w/o contrast completed [facility] [address] [place], [address], 04/03/2024 15:36:46 Procedure Notes None recorded. Medical Equipment None Reported. Allergies Allergen ID Allergen Name Allergen Category Reaction Reaction Severity Criticality Documentation Date Start Date Code Code System Note Provider Name and Address Organization Details Recorded Time 509133 codeine medicatio n Not available Not available high 02/24/20242013 2670 RxNorm unrec ogniz ed react ion (text : Delir ium, code: 82001 00) [facility] Not Available Not Available Not Available Medications Name Sig Start Date Stop Date Status Note LastModified by Organization Details LastModified Time cyclobenzap rine 10 mg tablet TAKE 1 TABLET BY MOUTH TWICE A DAY NEEDED FOR MUSCLE SPASMS 08/19 completed Not Available Not Available Not Available prednisone 10 mg tablet TAKE 1 TABLET (10 MG) BY MOUTH DAILY. 03/30 completed Not Available Not Available Not Available gabapentin 600 mg tablet Take 1 tablet twice a day by oral route for 90 days. active Not Available Not Available No t Available doxycycline hyclate 100 mg capsule TAKE 1 CAPSULE BY MOUTH TWICE A DAY FOR 7 DAYS 08/19 completed Not Available Not Available Not Available trazodone 50 mg tablet TAKE 1-2 TABLETS BY MOUTH NEEDED AT BEDTIME FOR INSOMNIA 04/03 completed Not Available Not Available Not Available ibuprofen 800 mg tablet TAKE 1 TABLET (800 MG TOTAL) BY MOUTH EVERY 8 (EIGHT) HOURS NEEDED FOR PAIN (PAIN) active Not Available Not Available No t Available tizanidine 4 mg tablet TAKE 1 TABLET BY MOUTH TWICE A DAY FOR 10 DAYS 03/14 completed Not Available Not Available Not Available prazosin 1 mg capsule TAKE 1 CAPSULE BY MOUTH EVERY DAY AT NIGHT 04/03 completed Not Available Not Available Not Available meloxicam 15 mg tablet 03/30 completed Not Available Not Available Not Available prednisone 20 mg tablet TAKE 3 TABLETS DAILY FOR 3 DAYS 2 TABS DAILY FOR 3 DAYS 1 TAB DAILY FOR 3 DAYS 03/30 completed Not Available Not Available Not Available metoprolol succinate ER 100 mg tablet,exte nded release 24 hr TAKE 1 TABLET BY MOUTH EVERY DAY active Not Available Not Available No t Available meclizine 12.5 mg tablet TAKE 1 TABLET BY MOUTH THREE TIMES DAILY NEEDED FOR DIZZINESS 08/19 completed Not Available Not Available Not Available phentermine 37.5 mg tablet TAKE 0.5 TABLETS (18.75 MG TOTAL) BY MOUTH 2 (TWO) TIMES A DAY 08/19 completed Not Available Not Available Not Available amlodipine 5 mg tablet 1 tab qd 2024 active Not Available Not Available Not Avai lable ciprofloxac in 500 mg tablet TAKE 1 TABLET BY MOUTH TWICE A DAY 03/30 completed Not Available Not Available Not Available tramadol 50 mg tablet TAKE 1 TABLET BY MOUTH EVERY 8 HOURS NEEDED FOR 30 DAYS active Not Available Not Available No t Available ketorolac 10 mg tablet TAKE 1 TABLET BY MOUTH EVERY 6 HOURS NEEDED FOR PAIN. 01/19 completed Not Available Not Available Not Available meloxicam 7.5 mg tablet TAKE 1 TABLET (7.5 MG) BY MOUTH EVERY 12 (TWELVE) HOURS NEEDED FOR PAIN 03/30 completed Not Available Not Available Not Available oxycodone-a cetaminophe n 5 mg-325 mg tablet TAKE 1 TABLET BY MOUTH EVERY 4 HOURS NEEDED FOR PAIN 03/30 completed Not Available Not Available Not Available terbinafine HCl 250 mg tablet TAKE 1 TABLET BY MOUTH EVERY DAY FOR A WEEK EVERY 30 DAYS 08/19 completed Not Available Not Available Not Available benzonatate 100 mg capsule TAKE 1 CAPSULE BY MOUTH THREE TIMES A DAY NEEDED FOR COUGH 03/30 completed Not Available Not Available Not Available pantoprazol e 40 mg tablet,domitila yed release 1 tab qd 2024 active Not Available Not Available Not Avai lable cyanocobala min (vit B-12) 1,000 mcg/mL injection solution 04/03 completed Not Available Not Available Not Available orphenadrin e citrate ER 100 mg tablet,exte nded release TAKE 1 TABLET TWICE A DAY BY ORAL ROUTE FOR 90 DAYS. 04/03 completed Not Available Not Available Not Available gabapentin 300 mg capsule TAKE 1 CAPSULE BY MOUTH EVERYDAY AT BEDTIME 03/30 completed Not Available Not Available Not Available fluoxetine 20 mg capsule TAKE 3 CAPSULES BY MOUTH DAILY FOR DEPRESSIO N / ANXIETY active Not Available Not Available No t Available risperidone 0.5 mg tablet TAKE 1 TO 2 TABLETS BY MOUTH NEEDED DAILY FOR INTRUSVIE THOUGHTS 04/03 completed Not Available Not Available Not Available amoxicillin 875 mg-potassiu m clavulanate 125 mg tablet TAKE 1 TABLET BY MOUTH EVERY 12 HOURS FOR 7 DAYS 08/19 completed Not Available Not Available Not Available aripiprazol e 15 mg tablet TAKE 1 TABLET BY MOUTH EVERY DAY active Not Available Not Available No t Available cyclobenzap rine 5 mg tablet TAKE 1 TABLET TWICE A DAY BY ORAL ROUTE NEEDED. active Not Available Not Available No t Available bupropion HCl XL 300 mg 24 hr tablet, extended release TAKE 1 TABLET BY MOUTH EVERY DAY active Not Available Not Available No t Available bupropion HCl XL 150 mg 24 hr tablet, extended release TAKE 1 TABLET BY MOUTH EVERY DAY 04/03 completed Not Available Not Available Not Available topiramate 50 mg tablet TAKE 1 TABLET BY MOUTH EVERY DAY active Not Available Not Available No t Available nitrofurant oin monohydrate /macrocryst als 100 mg capsule TAKE 1 CAPSULE BY MOUTH EVERY 12 HOURS FOR 7 DAYS 08/19 completed Not Available Not Available Not Available cholecalcif karthik (vitamin D3) 1,250 mcg (50,000 unit) capsule TAKE 1 CAPSULE BY MOUTH ONE TIME PER WEEK 04/03 completed Not Available Not Available Not Available cholecalcif karthik (vitamin D3) 50 mcg (2,000 unit) capsule TAKE 1 CAPSULE BY MOUTH ONCE A WEEK FOR 12 WEEKS 04/03 completed Not Available Not Available Not Available Kenalog-80 80 mg/mL suspension for injection Take 60 mg by injection route for 1 day. 01/19 completed Not Available Not Available Not Available Zepbound 5 mg/0.5 mL subcutaneou s pen injector ADMINISTE R 5 MG UNDER THE SKIN EVERY WEEK active Not Available Not Available No t Available Zepbound 2.5 mg/0.5 mL subcutaneou s pen injector INJECT 2.5 MG SUBCUTANE OUSLY WEEKLY 04/03 completed Not Available Not Available Not Available Zepbound 7.5 mg/0.5 mL subcutaneou s pen injector ADMINISTE R 7.5 MG UNDER THE SKIN EVERY WEEK active Not Available Not Available No t Available Vitals Date Recorded Body height Body mass index (BMI) Body weight Oxygen saturation Oxygen saturation in Arterial blood by Pulse oximetry Heart rate Provider Name and Address Organization Details Last Updated DateTime 4 166.37 cm 39.2 kg/m2 999996. 03 g 94 % 94 % 74 /min Alejandra Joy RN [facility] 4 10:53:37 Date Recorded Systolic blood pressure Diastolic blood pressure Provider Name and Address Organization Details Last Updated DateTime 08/20/2023 132 mm[Hg] 82 mm[Hg] Anupam Rae DO Attn: Accounting,[address] [place], [address], [facility] 08/20/2023 11:15:40 Date Recorded Body height Oxygen saturation Oxygen saturation in Arterial blood by Pulse oximetry Heart rate Body mass index (BMI) Body weight Provider Name and Address Organization Details Last Updated DateTime 4 166.37 cm 96 % 96 % 90 /min 40.8 kg/m2 334335. 5 g Lyly Esquivel MA [facility] 09:12:00 Date Recorded Systolic blood pressure Diastolic blood pressure Provider Name and Address Organization Details Last Updated DateTime 01/20/2024 126 mm[Hg] 78 mm[Hg] Anupam Rae DO Attn: Accounting,[address] [place], [address], [facility] 01/20/2024 09:46:53 Date Recorded Body height Body mass index (BMI) Body weight Oxygen saturation Oxygen saturation in Arterial blood by Pulse oximetry Heart rate Provider Name and Address Organization Details Last Updated DateTime 166.37 cm 41.6 kg/m2 696394. 46 g 97 % 97 % 80 /min Isaura Gutierrez MA [facility] 15:53:04 Date Recorded Systolic blood pressure Diastolic blood pressure Provider Name and Address Organization Details Last Updated DateTime 02/24/2024 132 mm[Hg] 84 mm[Hg] Anupam Rae DO Attn: Accounting,[address] [place], [address], [facility] 02/24/2024 16:39:45 Date Recorded Body height Body mass index (BMI) Body weight Oxygen saturation Oxygen saturation in Arterial blood by Pulse oximetry Heart rate Provider Name and Address Organization Details Last Updated DateTime 5 166.37 cm 41 kg/m2 832193. 09 g 96 % 96 % 71 /min Isaura Gutierrez MA [facility] 14:51:13 Date Recorded Systolic blood pressure Diastolic blood pressure Provider Name and Address Organization Details Last Updated DateTime 03/14/2024 112 mm[Hg] 78 mm[Hg] Anupam Rae DO Attn: Accounting,[address] [place], [address], [facility] 03/14/2024 15:31:22 Date Recorded Body height Body mass index (BMI) Body weight Provider Name and Address Organization Details Last Updated DateTime 04/03/2024 166.37 cm 40.2 kg/m2 742384.88 g Radha Marcelo MA [facility] 04/03/2024 15:34:00 Date Recorded Systolic blood pressure Diastolic blood pressure Provider Name and Address Organization Details Last Updated DateTime 04/03/2024 128 mm[Hg] 80 mm[Hg] Anupam Rae DO Attn: Accounting,[address] [facility], [place], [address], [facility] 04/03/2024 16:17:27 Social History Question Answer Notes LastModified by Organizat ion Details LastModified Time Tobacco Smoking Status Never Smoker Samira Hillman sun, [facility] 03/30/2023 17:39:14 What Is Your Level Of Alcohol Consumption? None [email or web address] Information not available 03/30/2023 What Is Your Level Of Caffeine Consumption? Moderate [email or web address] Information not available 08/20/2023 What Was The Date Of Your Most Recent Tobacco Screening? 04/03/2024 Information not available 04/03/2024 Do You Use Any Illicit Or Recreational Drugs? No Information not available 04/03/2024 Has Tobacco Cessation Counseling Been Provided? No Information not available 04/03/2024 Do You Or Have You Ever Used Any Other Forms Of Tobacco Or Nicotine? No Information not available 04/03/2024 Sex: Unknown Functional Status None recorded. Mental Status None recorded. Family History Relationship Description Onset Age of this Age Resolved Age Notes LastModified by Organization Details LastModified Time Mother Malignant tumor of breast Not available 2023 17:38:34 Mother Diabetes mellitus [email or web address] Not available 2023 17:38:47 Mother Malignant neoplasm of brain [email or web address] Not available 2023 17:39:03 Sister Depressive disorder [email or web address] Not available 2023 17:38:40 Father Hypertensive disorder Not available 2023 17:38:52 Medical History Condition Response Coronary Artery Disease N Other N Atrial Fibrillation N High Blood Pressure Y Depression Y COPD N Blood Clots N Anxiety Disorder Y Muscle, Joint, or Bone Problems Y Arthritis N Acid Reflux (GERD) Y Cancer N Stroke N Headaches N Kidney or Bladder Problems N Have you had a mammogram in the last yea r? Y Eating Disorder N Skin Problems Y Asthma N Allergies Y Substance Abuse N Hepatitis N ADHD N High Cholesterol N Liver Disease N Schizophrenia N Thyroid Problems N GI Problems N Anemia Y Heart Attack ([place]) N Diabetes N Seizures/Epilepsy N Have you had a colonoscopy in the last 1 0 years? Y Heart Failure N Osteoporosis N Gynecological History Statement/Question Response Date of Last Mammogram 04/12/2023 Obstetrics History GPAL:G 0 P 0 0 0 0 Immunizations Vaccine Type Date Status Note Provider Sadiq parker and Address Organization Details Recorded Time COVID-19, mRNA, LNP-S, PF, 30 mcg/0.3 mL dose 04/19/2020 completed Carie Arau[place], [place] [facility] 03/30/2023 15:37:41 COVID-19, mRNA, LNP-S, PF, 30 mcg/0.3 mL dose 05/10/2020 [place] BOBBY Graf[place] [facility] 03/30/2023 15:37:41 Influenza, split virus, quadrivalent, PF 11/30/2022 [place] BOBBY [place] [facility] 03/30/2023 15:37:41 Influenza, split virus, quadrivalent, PF 12/19/2019 completed Carie Arau[place] [facility] 03/30/2023 15:37:41 COVID-19, mRNA, LNP-S, PF, denia-sucrose, 30 mcg/0.3 mL 11/19/2023 completed Radha Marcel[place] [facility] 04/03/2024 15:36:10 Influenza, split virus, trivalent, PF 11/19/2023 completed Radha Marcel[place] [facility] 04/03/2024 15:36:10 Past Encounters Encounter ID Performer Location Encounter Start Date Encounter Closed Date Diagnosis/Indication Diagnosis SNOMED-CT Code Diagnosis ICD10 Code Diagnosis Note [id number] Anupam Rae DO [facility] [place]en parker [place] [address] [facility] [address] [place] [address] 03/30/2023 15:33:47 04/01/2023 10:31:15 Hyperlipidemia 86866806 E78.5 Stable Gastroesop hageal reflux disease without esophagitis 274364264 K21.9 Pantoprazo le/Protoni x 40 mg daily stable Chronic insomnia 3116377 04 F51.04 Stable Obstructiv e sleep apnea syndrome 99106491 G47.33 CPAP Eczema 69822557 L30.9 not at goaladd kenalog 60 mg imRGM Osteoarthritis 621382977 M19.90 Stable Congestive heart failure 62634364 I50.9 Congestive heart failure with left ventricula r diastolic dysfunctio nMaintain blood pressure controlMet oprolol XL 100 mg daily Migraine 52092217 G43.90 9 Stable History of calculus of kidney 518425513 Z87.442 Stable Generalize d anxiety disorder 28399725 F41.1 Prozac 20 mg Essential hypertension 75223862 I10 Amlodipine 5 mgMetoprol ol XL 100 mg Chronic low back pain 27 2897589 M54.50 Stable Morbid obesity 405263666 E66.01 Healthy dietWeight loss Depressive disorder 3548 9007 F32.A Abilify 15 mgWellbutr in XL/bupropi on 150 mgFluoxeti ne 20 mg Acute urin rusty tract infection 312495483 N39.0 add macrobid 100 mg bid 1 week [id number] Alejandra Joy RN [facility] [place] [address] [facility] [address] [place] [address] 08/20/2023 10:34:22 08/20/2023 11:39:02 Chronic insomnia 866204438 F51.04 Stable Congestive heart failure 77144291 I50.9 Congestive heart failure with left ventricula r diastolic dysfunctio nMaintain blood pressure controlMet oprolol XL 100 mg daily Depressive disorder 3548 9007 F32.A Abilify 15 mgWellbutr in XL/bupropi on 150 mgFluoxeti ne 20 mgchronic conditiona t goal Essential hypertension 81478878 I10 Amlodipine 5 mgMetoprol ol XL 100 mgchronic conditio sophy goal Morbid obesity 563598522 E66.01 Healthy dietWeight losschroni c conditionn ot at goal Thyroid nodule 882345985 E04.1 reorder a us Dysphagia 31628673 R13.1 0 order a ba swallow Pain of bi lateral knee regions 1604590343 93070 M25.561 x ray B kneeskenal og 60 mg IM RGM 2277939 Anupam Rae, DO [facility] [place] [address] [facility] [place] [address] 01/20/2024 09:06:00 01/20/2024 10:00:19 Pain in left arm 081150124 M79.602 x ray left humerus and shoulderte nder anterior left shoulder and entire left bicep regionno edema or erythemaad d flexeril 5 mg bidawait x rays Chronic low back pain 27 9937417 M54.50 order a x ray ls spineflexe ril 5 mg bid prn Depressive disorder 3548 9007 F32.A Abilify 15 mgWellbutr in XL/bupropi on 150 mgFluoxeti ne 20 mgchronic conditiona t goal Essential hypertension 67833765 I10 Amlodipine 5 mgMetoprol ol XL 100 mgchronic conditio sophy goal 3913118 Anupam Rae, DO [email or web address] [place] [address] [facility] [address] [place] [address] 02/24/2024 15:00:32 02/29/2024 13:02:56 Fall [id number] W19.XXXA fell on buttockadd tizanidine 4 mg bid prn Chronic insomnia 6441260 04 F51.04 Stable Congestive heart failure 93687377 I50.9 Congestive heart failure with left ventricula r diastolic dysfunctio nMaintain blood pressure controlMet oprolol XL 100 mg daily Depressive disorder 3548 9007 F32.A Abilify 15 mgWellbutr in XL/bupropi on 150 mgFluoxeti ne 20 mgchronic conditiona t goal Essential hypertension 21217411 I10 Amlodipine 5 mgMetoprol ol XL 100 mgchronic conditiona t goal Hyperlipidemia 05081129 E78.5 Stable Morbid obesity 176888232 E66.01 Healthy dietWeight losschroni c conditionn ot at goalstart zepbound 2.5 mg q weekly 5819007 Anupam Rae, DO [facility] [place] [address] [facility] [address] [facility] [place] [address] 03/14/2024 14:46:26 03/15/2024 12:05:26 Chronic low back pain 222585537 M54.50 order a mri ls spine Depressive disorder 3548 9007 F32.A Abilify 15 mgWellbutr in XL/bupropi on 150 mgFluoxeti ne 20 mgchronic conditiona t goal Essential hypertension 65427434 I10 Amlodipine 5 mgMetoprol ol XL 100 mgchronic conditiona t goal Gastroesop hageal reflux disease without esophagitis 088439216 K21.9 Pantoprazo le/Protoni x 40 mg daily stable Generalize d anxiety disorder 43738500 F41.1 Prozac 20 mg Morbid obesity 596244006 E66.01 Healthy dietWeight losschroni c conditionn ot at goalstart zepbound 2.5 mg q weeklyfirs t injection here today Thyroid nodule 329856187 E04.1 [facility] [id number] Anupam Rae, DO [facility] [address] [facility] [address] [place] [address] 04/03/2024 15:19:41 04/04/2024 11:37:22 Increased frequency of urination 937475536 R35.0 ua looks okhas been drinking a lot of water Essential hypertension 32859443 I10 Amlodipine 5 mgMetoprol ol XL 100 mgchronic conditiona t goal Gastroesop hageal reflux disease without esophagitis 164453391 K21.9 Pantoprazo le/Protoni x 40 mg daily stable Generalize d anxiety disorder 76543201 F41.1 Prozac 20 mgchronic condition Morbid obesity 597200049 E66.01 Healthy dietWeight losschroni c conditionn ot at goalzepbou nd 2.5 mg q weeklyincr ease to 5 mg4 weeks then update Obstructiv e sleep apnea syndrome 59485285 G47.33 CPAP Chronic low back pain 27 8559327 M54.50 mri ls spinemoder ate to severe spinal stenosisre rc back to Dr. Perea [facility] Concerns Section Related Observation LastModified by Organization Detai ls LastModified Time None Recorded Concern Status LastModified by Organization Details LastModified Time None Recorded Advance Directives Directive None Recorded Payers Encounter Date Sequence Insurance Name Policy Number Policy Landeros Covered Member ID Landeros Member ID Guarantor Name 08/20/2023 1 [facility] (POS II) [id number] Miguel Calderons [id number] Sandra Soliman 01/20/2024 1 [facility] (POS II) [id number] Miguel Calderons [id number] Sandra Sloiman 02/24/2024 1 [facility] (POS II) [id number] Miguel Calderons [id number] Sandra Soliman 03/14/2024 1 [facility] (POS II) [id number] Miguel Calderons [id number] Sandra Soliman 04/03/2024 1 [facility] (POS II) [id number] Miguel Calderons [id number] Sandra Soliman Notes Date Note Type Note Provider Name and Address Organization Details Recorded Time 08/20/2023 text/html multiple medical issuesfirst has red dots on arms and legssecond knees are hurtingthirdfeels like she has some trouble swallowing Alejandra Joy RN [facility], [place] - [place] 08/20/2023 11:37:58 01/20/2024 text/html left bicep regio n hurting2 weeksone day was adjusting cpap and noticed pain in arm also having tailbone region pain againno bowel or bladder issues Anupam Rae DO Attn: Accounting,[address] [place], [address], [facility] [place] - [facility] 01/20/2024 17:56:44 02/24/2024 text/html routine 6 month follow upfell recently off a stoolpain in tailbone region Anupam Rae DO Attn: Accounting,[address] [place], [address], [place] - [facility] 02/24/2024 19:00:03 03/14/2024 text/html needs a zepbound injectionalso tailbone still hurtinglong standinghad an x rayno significant issues had LE pain and trouble walking last year Anupam Rae DO Attn: Accounting,[address] [place], [address], [place] - [facility] 03/14/2024 18:53:43 04/03/2024 text/html follow uptailbon e and buttock are still hurting Anupam Rae DO Attn: Accounting,[address] [facility] [place], [address], [facility] [place] - [facility] 04/03/2024 17:56:36 OBGyn Episode No OBEpisode recorded.
--- OUTSIDE RECORDS SUMMARY | 2024-05-25 08:17 | XMS_ITS | Encounter Summary ---
Author Organization [facility] Facility Care Team Providers Care Home Teaching Grades 7 And 8 Teacher Name Role Phone Anupam Rae DO Primary Care Provider + Ronal Wallace DO Unavailable [phone] Chuck Medeiros DO Unavailable Noy Nunez DIRECTOR HEDIS Unavailable [phone] Krystina Perea MD Unavailable Harika Guerra RN Unavailable [phone] Jose Alberto Garcia Unavailable [phone] Encounter Details Date Type Department Care Team (Latest Contact Info) Description 05/13/2015 Orders Only [facility] CLINCONV Provider, MD Mercedes [address] [place] [address] Social History Tobacco Use Types Packs/Day Years Used Date Smoking Tobacco: Never Assessed Comments Unknown Sex and Gender Information Value Date Recorded Sex Assigned at Not on file Legal Sex Female 5:07 PM BLINDSTITCH LAPEL PADDER Gender Identity Female 12/23/2020 2:56 PM BLINDSTITCH LAPEL PADDER Sexual Orientation Straight 12/23/2020 2: 56 PM BLINDSTITCH LAPEL PADDER documented as of this encounter Plan of [...] documented as of this encounter Care Teams Home Teaching Grades 7 And 8 Teacher Relationship Specialty Start Date End Date Anupam Rae, PCP - General Family Medicine 05/23/18 Ronal Wallace DO [address] [place] [address] Referring Physician Psychiatry 10/17/20 04/05/23 Chuck Medeiros, [address] [place] [address] Consulting Physician Obstetrics and Gynecology 10/29/20 04/05/23 Noy Nunez, HEIDI [address] [place] [address] Medical Oncologist/Paper Feeder Medical Oncology 02/14/21 Krystina Perea MD [address] [place] [address] Consulting Physician Pain Management 10/27/22 Harika Guerra, RN [address] [place] [address] [address] [place] [address] Jewel Cupping Machine Operator 11/22/22 12/28/22 Jose Alberto Garcia PA [address] [facility] [address] [place] [address] Physician Clinical Research Assistant Emergency Medicine 04/05/23 4 documented as of this encounter
--- OUTSIDE RECORDS SUMMARY | 2024-05-25 08:17 | XMS_ITS | Encounter Summary ---
Author Organization [facility] Facility Care Team Providers Care Cleaning Handyman Name Role Phone Anupam Rae DO Primary Care Provider + Ronal Wallace DO Unavailable [phone] Chuck Medeiros DO Unavailable Noy Nunez MOTOR EQUIPMENT COMMANDING OFFICER Unavailable [phone] Krystina Perea MD Unavailable Harika Guerra RN Unavailable [phone] Jose Alberto Garcia Unavailable [phone] Encounter Details Date Type Department Care Team (Latest Contact Info) Description 04/11/2014 Orders Only [facility] CLINCONV Provider, MD Mercedes [address] [place] [address] Social History Tobacco Use Types Packs/Day Years Used Date Smoking Tobacco: Never Assessed Comments Unknown Sex and Gender Information Value Date Recorded Sex Assigned at Not on file Legal Sex Female 5:07 PM BOX BENDER Gender Identity Female 12/23/2020 2:56 PM BOX BENDER Sexual Orientation Straight 12/23/2020 2: 56 PM BOX BENDER documented as of this encounter Plan of Treatment Not on file documented as of this encounter Procedures Procedure Name Priority Date/Time Associated Diagnosis Comments SCAN - LABS 05/21/2016 12:00 AM CDT CARDIOLOGY REPORT 05/21/2016 12: 00 AM CDT documented in this encounter Results * SCAN - LABS (05/21/2016 12:00 AM CDT) Narrative 05/21/2016 12:00 AM CDT Ordered by an unspecified provider. us Historical Provider Final Res ult * CARDIOLOGY REPORT (05/21/2016 12:00 AM CDT) Anatomical Region Laterality Modality Other Narrative 05/21/2016 12:00 AM CDT Ordered by an unspecified provider. us Historical Provider CV CARDIAC SERVICES PROCE DURES Final Result documented in this encounter Visit Diagnoses Not on filedocumented in this encounter Additional Health Concerns Infection Onset Date Last Indicated Resolved Time COVID19 11/06/2019 11/06/2019 11/20/2019 3:06 AM CDT COVID: Recovered Comment:Added based on recent COVID infection. 11/20/2019 11/23/2019 03/19/2020 3:[address] COVID: Suspected 07/13/2022 07/13/2022 07/13/2022 1:11 PM CDT documented as of this encounter Care Teams Cleaning Handyman Relationship Specialty Start Date End Date Anupam Rae DO PCP - General Family Medicine 05/23/18 Ronal Wallace DO [address] [place] [address] Referring Physician Psychiatry 10/17/20 04/05/23 Chuck Medeiros DO [address] [place], [place] [id number] Consulting Physician Obstetrics and Gynecology 10/29/20 04/05/23 Noy Nunez NP [address] [place] [address] Medical Oncologist/Intelligence Officer Medical Oncology 02/14/21 Krystina Perea MD [address] [place] [address] Consulting Physician Pain Management 10/27/22 Harika Guerra RN [address] [place] [address] [address] [place] [address] Costume Designer 11/22/22 12/28/22 Jose Alberto Garcia PA [address] [place] [address] [address] [place] [address] Physician Smoking Tobacco Packing Machine Hand Emergency Medicine 04/05/23 4 documented as of this encounter
--- OUTSIDE RECORDS SUMMARY | 2024-05-25 08:18 | XMS_ITS | Clinical Summary ---
Author Organization [facility] Address [address] [place] [address] Care Team Providers Care Math And Sciences Department Chair Name Role Phone Anupam Oconnell DO Primary Care Provider [phone] Social History Tobacco Use Types Packs/Day Years Used Date Smoking Tobacco: Never Assessed Comments Unknown Sex and Gender Information Value Date Recorded Sex Assigned at Not on file Legal Sex Female 8:06 PM CDT Gender Identity Not on file Sexual Orientation Not on file Plan of Treatment Health Maintenance Due Date Last Done Comments Cervical Cancer Screening Pa p Smear (Age 30 to 64) Every 3 Years 1970 Colorectal Cancer Screening Colonoscopy (10 Years) 1970 Annual Physical 1973 Hepatitis C 02/22/1988 DTaP, Tdap and Td Vaccines ( 1 - Tdap) 1989 Hepatitis B Vaccines (1 of 3 - 19+ 3-dose series) 1989 Cervical Cancer Screening Pa p with HPV Testing (Age 30 to 64) Every 5 Years 02/22/2000 Cervical Cancer Screening wi th HPV 02/22/2000 Mammogram Screening 2010 Zoster Vaccines (1 of 2) 02/22/2020 COVID-19 Vaccine ( - 2023-2 5 season) 2023 06/24/2020, 06/05/2020 Meningococcal B Vaccine Aged Out No l onger eligible based on patient's age to complete this topic Meningococcal Vaccine Aged Out No enriqueta iman eligible based on patient's age to complete this topic Pneumococcal Vaccine: Pediatrics (0 to 5 Years) and At-Risk Patients (6 to 49 Years) Aged Out No longer eligible b ased on patient's age to complete this topic RSV Immunizations Under 20 Months Aged Out No longer eligible b ased on patient's age to complete this topic Care Teams Math And Sciences Department Chair Relationship Specialty Start Date End Date Anupam Oconnell DO PCP - General 09/04/12
--- OUTSIDE RECORDS SUMMARY | 2024-05-25 08:18 | XMS_ITS | Clinical Summary ---
Author Organization [facility] at the [facility] Center Address [address] [place] [address] Care Team Providers Care Cutting And Splicing Supervisor Name Role Phone Anupam Rae DO Primary Care Provider + Noy Nunez NP Unavailable [phone] Krystina Perea MD Unavailable Allergies Active Allergy Reactions Criticality Noted Date Comments Codeine Unknown 05/22/2013 Pt doesn't remember symptoms Medications FLUoxetine (PROzac) 20 mg capsuleIndicati ons:depression Take 3 capsules (60 mg total) by mouth daily 09/03/2017 Active buPROPion XL (WELLBUTRIN XL) 150 mg 24 hr tablet Take 1 tablet (150 mg total) by mouth daily 09/04/2021 Active ARIPiprazole (ABILIFY) 15 mg tablet Take 1 tablet (15 mg total) by mouth daily 08/15/[address] (PROTONIX) 40 mg EC tablet TAKE 1 TABLET DAILY 90 tablet 01/13/2023 Active amLODIPine (NORVASC) 5 mg tablet TAKE 1 TABLET DAILY 90 tablet 01/13/2023 Active metoprolol XL (TOPROL-XL) 100 mg 24 hr tablet TAKE 1 TABLET DAILY 90 tablet 01/13/2023 Active gabapentin (NEURONTIN) 600 mg tabletIndicatio ns:Paresthesia Take 1 tablet (600 mg total) by mouth 3 (three) times a day 90 tablet 01/18/2023 Active traZODone (DESYREL) 50 mg tablet Take 1 tablet (50 mg total) by mouth nightly 04/21/2023 Active tirzepatide, weight loss, (Zepbound) 5 mg/0.5 mL pen injector Inject 0.5 mL (5 mg total) under the skin every 7 days Active traMADoL (ULTRAM) 50 mg tablet Take 1 tablet (50 mg total) by mouth every 12 (twelve) hours as needed for pain Active cyclobenzaprine (FLEXERIL) 5 mg tablet Take 1 tablet (5 mg total) by mouth 2 (two) times a day as needed for muscle spasms Active Active Problems Problem Noted Date Diagnosed Date Toenail fungus 11/16/2022 Assessment & Plan (11/16/2022 11:34 AM CDT): Terbafine ordered by PCP & brought form home. Continue as ordered. Monitor liver enzymes. Anxiety 10/29/2022 Spinal stenosis of lumbar re gion, unspecified whether neurogenic claudication present 10/28/2022 Assessment & Plan (11/17/2022 1:37 PM CDT): Patient had fu with Dr. Perea Wednesday & received injections. Pain control with Percocet, Orphenadrine. Outpt tx referral. Assessment & Plan (11/16/2022 11:33 AM CDT): Patient had fu with Dr. Perea Wednesday & received injections.Had increased pain Wednesday but is doing well now. Feels ready for discharge. Insurance update today. Continue PT/OT. DC Lovenox. Assessment & Plan (11/13/2022 12:15 PM CDT): Continue PT/OT. Pain control with Percocet, Orphenadrine. Dr. Laws Wednesday. Progressing well with tx. Assessment & Plan (11/09/2022 5:14 PM CDT): This problem is chronic but with acute exacerbation and considered unstable. She has an appointment with Dr. Perea on Wednesday for consideration of an injection. We have agreed to hold her Lovenox on Wednesday- Wednesday. I have ordered Tylenol and Percocet for her pain I have ordered Norflex for muscle relaxation p.r.n. Chronic bilateral low back pain with bilateral s ciatica 09/29/2022 Assessment & Plan (11/30/2022 4:05 PM CDT): Trying to lose weight Add wegovy Assessment & Plan (10/21/2022 9:52 AM CDT): Chronic condition Not at goal Add prednisone 10 mg daily 5 days Will see pain management on October 27 Assessment & Plan (09/29/2022 3:44 PM CDT): Worsening. Continue meloxicam and norflex PRN. Increase gabapentin to 300 mg TID and gave short script for Percocet PRN to use for breakthrough pain. Check MRI lumbar spine due to paresthesias and right leg weakness. See PT and neurosurgery as scheduled. Annual physical exam 07/13/2022 Assessment & Plan (07/13/2022 1:30 PM CDT): meds reviewed and reconciled Kidney stone 06/04/2022 06/04/2022 Congestive heart failure wit h left ventricular diastolic dysfunction 06/04/2022 06/04/2022 Assessment & Plan (11/09/2022 5:11 PM CDT): This problem is chronic and stable. I have ordered metoprolol Dyslipidemia, goal LDL below 100 06/04/2022 06/04/2022 Migraine without status migrainosus, not intract able 06/04/2022 06/04/2022 Numbness 06/04/2022 06/04/2022 Renal pelvis enlarged on ultrasound 06/04/2022 06/04/2022 Simple ovarian cyst 06/04/2022 06/04/2022 Ureteric stone 06/04/2022 06/04/2022 Benign hypertension 06/04/2022 06/04/2022 Assessment & Plan (11/30/2022 4:04 PM CDT): Patient is well controlled. Continue current treatment. Assessment & Plan (11/16/2022 11:33 AM CDT): BP stable. Continue Norvasc + Metoprolol. Assessment & Plan (11/12/2022 10:40 AM CDT): BP stable. Continue Norvasc & Metoprolol. Monitor. Assessment & Plan (11/09/2022 5:10 PM CDT): This problem is stable. Have ordered amlodipine and metoprolol. Assessment & Plan (07/13/2022 1:33 PM CDT): Patient is well controlled. Continue current treatment. Gastroesophageal reflux disease with stricture 0 06/04/2022 06/04/2022 Primary insomnia 06/04/2022 06/04/2022 Obstructive sleep apnea syndrome 06/04/2022 06/04/2022 PAUL (obstructive sleep apnea) 10/16/2021 Assessment & Plan (03/30/2022 11:37 AM LIVESTOCK YARD ATTENDANT): Will continue with auto titrating CPAP set at 5-15 cm water pressure. Denied need for supplies. DME [employer] Assessment & Plan (10/16/2021 12:43 PM CDT): Refer to pulm to update sleep study. Also needs new CPAP - hers broke Arthralgia of both knees 08/03/2019 Assessment & Plan (10/16/2021 12:43 PM CDT): Refer back to ortho for injection Assessment & Plan (08/03/2019 2:33 PM CDT): Ibuprofen 400 mg tid Lab Eczema 07/18/2019 Overview (07/18/2019): Hydrocortisone 1% JODEE (generalized anxiety disorder) 06/23/2019 06/04/2022 Insomnia 08/15/2018 Assessment & Plan (08/15/2018 12:05 PM CDT): Patient is well controlled. Continue current treatment. Paresthesia 07/11/2018 Assessment & Plan (10/20/2018 4:06 PM CDT): Increase gabapentin to 300 mg at hs Assessment & Plan (08/15/2018 12:05 PM CDT): Add neurontin 100 mg at hs Assessment & Plan (07/11/2018 12:01 PM CDT): Lab ncs Dyslipidemia 07/27/2016 Assessment & Plan (12/19/2019 2:31 PM LIVESTOCK YARD ATTENDANT): Patient is well controlled. Continue current treatment. Gastroesophageal reflux disease 05/24/2013 Assessment & Plan (11/09/2022 5:11 PM CDT): This problem is chronic and stable I have ordered Protonix Assessment & Plan (12/12/2018 11:00 AM LIVESTOCK YARD ATTENDANT): Patient is well controlled. Continue current treatment. Assessment & Plan (05/24/2018 10:04 AM CDT): No new orders at the present time Cont rx Severe episode of recurrent major depressive disorder, without psychotic features 05/23/2013 Assessment & Plan (11/30/2022 4:06 PM CDT): Patient is well controlled. Continue current treatment. Assessment & Plan (11/09/2022 5:12 PM CDT): This is a chronic stable problem. I have ordered continuation of Abilify and fluoxetine. Have ordered Adipex. I have reviewed the drug drug interactions for the current medicines on order set. Despite the cautionary note I advised continuing the same medications since they have been previously tolerated. Without these medicines I am concerned she would decompensate Assessment & Plan (05/14/2021 1:56 PM CDT): Discussed with pt No further ECT Not much help Was having memory issues Assessment & Plan (05/24/2018 10:03 AM CDT): Continues with ECT No new issues Going every three weeks Resolved Problems Problem Noted Date Diagnosed Date Resolved Date Acute cough 07/13/2022 10/21/2022 Assessment & Plan (07/13/2022 1:37 PM CDT): COVID negative influenza a and B negative. Doxycycline 100 mg bid 10 days Tessalon perles 100 mg tid prn Acute heart failure with pre served ejection fraction 06/04/2022 06/04/2022 11/12/2022 Acute respiratory failure with hypoxia 06/04/202207/13/2022 Functional weakness 06/04/2022 06/04/2022 07/14/19 History of calculus of kidne y during 06/04/2022 06/04/2022 07/13/2022 Hypokalemia due to loss of potassium 06/04/202205/1007/13/2022 Line sepsis 06/04/2022 06/04/2022 07/13/2022 Pleural effusion due to [place]ol[place] estive heart failure 06/04/2022 06/04/2022 11/12/2022 Pneumonia due to 2019-nCoV 06/04/2022 06/04/2022 1 Pyelonephritis of transplanted kidney 06/04/202207/13/2022 Transfusion-dependent anemia 06/04/2022 06/04/2022 11/12/2022 Anxiety with depression 06/04/2022 06/04/2022 06/0 06/2022 Depression with somatization 06/04/2022 06/04/2022 07/13/2022 Moderate essential hypertension 06/04/2022 11/12/2022 Assessment & Plan (07/13/2022 1:30 PM CDT): Patient is well controlled. Continue current treatment. Morbid obesity 06/04/2022 06/04/2022 07/13/2022 Obesity determined by physical examination 06/04/2022 06/04/2022 07/13/2022 Well child examination 06/04/2022 06/04/202207/13 Recurrent cough 06/04/2022 06/04/2022 07/13/2022 Snoring 10/30/2021 03/30/2022 Assessment & Plan (10/30/2021 3:40 PM CDT): Patient presents with snoring and daytime fatigue. Have recommended proceeding with a nocturnal polysomnogram with a split night protocol if necessary and no MSLT. She will follow-up here in 3 months. Morbid (severe) obesity due to excess calories 10/16/2021 07/13/2022 Assessment & Plan (10/16/2021 12:43 PM CDT): Recommend diet and exercise Anemia due to vitamin B12 deficiency 10/16/2021 11/12/2022 Assessment & Plan (10/16/2021 12:44 PM CDT): Last labs were stable. Continue monthly B12 injections - gives to herself at home. Repeat labs in 3 months Bilateral foot pain 05/14/2021 03/30/19 23 Assessment & Plan (05/14/2021 1:53 PM CDT): NCS BLE X ray B feet Intentional drug overdose 04/26/2021 Borderline personality disorder 04/26/2021 03/30/2022 Knee pain, left 12/10/2020 03/30/2022 Assessment & Plan (12/10/2020 12:19 PM CDT): She fell approximately 1 week ago. She has some anterior tenderness. There is slight edema. No erythema. No noticeable instability. I will check a x-ray and make further recommendations from there B12 deficiency 08/26/2020 11/12/2022 Assessment & Plan (11/09/2022 5:11 PM CDT): This problem is chronic and stable. I have ordered B12 injections monthly Assessment & Plan (09/29/2022 3:42 PM CDT): On B12 shots now. Has bilateral foot paresthesias. Dizziness 08/20/2020 05/14/2021 Assessment & Plan (08/29/2020 1:12 PM CDT): Follow-up ER. Labs reviewed chest x-ray reviewed EKG review Assessment & Plan (08/20/2020 4:30 PM CDT): Check a cbc Chem 7 Update 24-48 hrs Cysts of both ovaries 08/01/20202020 Overview (08/01/2020): Added automatically from request for surgery [id number] Pre-op exam 07/29/2020 11/21/2020 Assessment & Plan (08/29/2020 1:11 PM CDT): Clear for bilateral oophorectomy Assessment & Plan (07/29/2020 11:55 AM CDT): Will order cbc Chem 7 PT PTT ekg cxr COVID-19 11/24/2019 07/13/2022 Assessment & Plan (11/27/2019 11:50 AM CDT): Doing much better Assessment & Plan (11/24/2019 9:13 AM CDT): Slowly improving Continue rx UTI (urinary tract infection) 07/18/2019 11/21/2020 Overview (07/18/2019): cipro Assessment & Plan (11/27/2019 11:50 AM CDT): Amoxicillin 500 mg tid 1 week Breast pain 01/11/2019 11/21/2020 Assessment & Plan (01/11/2019 3:48 PM LIVESTOCK YARD ATTENDANT): Mammogram No caffeine Tylenol arthritis Peripheral edema 12/12/2018 12/10/2020 Assessment & Plan (12/19/2019 2:34 PM LIVESTOCK YARD ATTENDANT): Lab Decrease amlodipine to 5 mg daily Assessment & Plan (12/12/2018 10:59 AM LIVESTOCK YARD ATTENDANT): Lab Respiratory infection 10/20/20182020 Assessment & Plan (10/20/2018 4:05 PM CDT): Amoxicillin 500 Polyuria 07/11/2018 03/30/2022 Assessment & Plan (05/14/2021 1:53 PM CDT): cipro 500 Assessment & Plan (08/15/2018 12:06 PM CDT): u/a Assessment & Plan (07/11/2018 12:01 PM CDT): u/a Routine medical exam 05/24/2018 019 Other dysphagia 05/24/2018 05/24/2018 Dysphagia 05/24/2018 03/30/2022 Assessment & Plan (05/29/2020 8:04 AM CDT): Modified barium swallow Has seen Dr. You in the past Refer to Dr. You Assessment & Plan (05/24/2018 9:59 AM CDT): Modified barium swallow \ Suicidal ideations 10/14/2016 3 Hallucinations 01/07/2016 08/15/2018 Acute diarrhea 11/08/2015 08/15/2018 Dysuria 11/08/2015 08/15/2018 History of congestive heart failure 11/08/2015 08/24/2020 Sore throat 11/08/2015 08/15/2018 Sinusitis 05/25/2013 08/15/2018 Anemia, blood loss 05/24/2013 3 Depression 05/22/2013 05/14/2021 Assessment & Plan (12/10/2020 12:21 PM CDT): Overall doing ok Has not had a ECT in some time Assessment & Plan (08/15/2018 12:05 PM CDT): Patient is well controlled. Continue current treatment. Essential hypertension 05/22/201311/12 Assessment & Plan (05/14/2021 1:54 PM CDT): Patient is well controlled. Continue current treatment. Assessment & Plan (12/10/2020 12:20 PM CDT): She is having some symptoms with elevated blood pressure. I am going to increase her Toprol to 100 mg. I will recheck her back here in 4 weeks Assessment & Plan (08/20/2020 4:29 PM CDT): Has changed diet Losing weight Hold amlodipine Assessment & Plan (07/29/2020 11:55 AM CDT): Patient is well controlled. Continue current treatment. Cont amlodipine Assessment & Plan (12/19/2019 2:31 PM LIVESTOCK YARD ATTENDANT): Patient is well controlled. Continue current treatment. Assessment & Plan (11/27/2019 11:51 AM CDT): Patient is well controlled. Continue current treatment. Assessment & Plan (11/24/2019 9:13 AM CDT): Patient is well controlled. Continue current treatment. Assessment & Plan (07/18/2019 9:28 AM CDT): Patient is well controlled. Continue current treatment. Assessment & Plan (12/12/2018 11:00 AM LIVESTOCK YARD ATTENDANT): Patient is well controlled. Continue current treatment. Assessment & Plan (08/15/2018 12:04 PM CDT): Patient is well controlled. Continue current treatment. Assessment & Plan (07/11/2018 12:01 PM CDT): Patient is well controlled. Continue current treatment. Encounters Date Type Department Care Team Description 05/04/2024 8:24 AM CDT - 05/04/2024 11:59 PM CDT Hospital Encounter [facility] [id number] [address] Krystina Perea MD Bulge of lumbar disc without myelopathy (Primary Dx); Spinal stenosis of lumbar region, unspecified whether neurogenic claudication present; Lumbar radiculopathy Discharge Disposition: Discharge to home or self care 04/21/2024 8:20 AM CDT - 04/21/2024 11:59 PM CDT Hospital Encounter [facility] [address] [address] Krystina Perea MD Lumbar radiculopathy (Primary Dx); Spinal stenosis of lumbar region, unspecified whether neurogenic claudication present; Bulge of lumbar disc without myelopathy Discharge Disposition: Discharge to home or self care 04/11/2024 8:10 AM LIVESTOCK YARD ATTENDANT - 04/11/2024 11:59 PM LIVESTOCK YARD ATTENDANT Hospital Encounter [facility] [address] [address] Krystina Perea MD Spinal stenosis of lumbar region, unspecified whether neurogenic claudication present (Primary Dx); Toenail fungus; Bulge of lumbar disc without myelopathy; Neural foraminal stenosis of lumbar spine; Radiculopathy, lumbar region Discharge Disposition: Discharge to home or self care 03/27/2024 3:47 PM LIVESTOCK YARD ATTENDANT - 03/27/2024 11:59 PM LIVESTOCK YARD ATTENDANT Hospital Encounter [facility] [address] [place] [address] Low back pain, unspecified back pain laterality, unspecified chronicity, unspecified whether sciatica present Discharge Disposition: Discharge to home or self care from Last 3 Months Immunizations Immunization Administration Dates Next Due Influenza, Quadrivalent, Spl it, Intramuscular 12/20/1996 Influenza, Quadrivalent, Spl it, Preservative Free, Intramuscular 11/30/2022,12/19/2019 Influenza, Trivalent, IM (MDV) 12/28/2019 Influenza, Unspecified 07/13/2022(Deferr ed: Patient Refused),11/27/2021(Deferred: Patient Refused),11/08/2021(Deferred: Patient Refused),11/08/2020(Deferred: Patient Refused),10/09/2020(Deferred: Patient Refused) PPD TEST 11/09/2022 [employer] SARS-CoV-2 Monovalent Vaccination (12+ Yrs) PURPLE 06/24/2020,06/05/2020 Surgical History Surgery Date Site/Laterality Comments WISDOM TOOTH EXTRACTION OTHER SURGICAL HISTORY Stent placed for kidney stone KIDNEY STONE SURGERY KIDNEY STONE SURGERY SALPINGECTOMY Bilateral OOPHORECTOMY bilateral BREAST BIOPSY Bilateral Medical History Medical History Date Comments Hypertension GERD (gastroesophageal reflux disease) Covid-19 11/2019, hosp. x 2, 3 days 1st time, 4 days 2nd time Obesity morbid Depression Anemia Sleep apnea wears CPAP, rece ntly broken, awaiting new one Anxiety History of suicidal ideation Wears glasses Eczema History of kidney stones Arthritis generalized, bu t more in knees PTSD (post-traumatic stress disorder) History of blood transfusion 4 u PRBC's 08/2020, per pt, never found reason for anemia Dissociative identity disorder (HCC) Last menstrual period (LMP) > 10 days ago Pt says LMP greater than one year ago Vaginal delivery x 2 Intentional drug overdose (HCC) 04/26/2021 Family History Medical History Relation Name Comments Cancer Father Depression Maternal Grandmother Breast cancer Mother Chronic Pain Mother Diabetes Mother type 2 Cancer Paternal Grandmother Chronic Pain Paternal Grandmother Anxiety disorder Sister 1 Jordyn Depression Sister 1 Jordyn Ovarian cancer Sister 1 Jordyn Skin cancer Sister 2 Aminta Relation Name Status Comments Father Maternal Grandfather Maternal Grandmother Mother Paternal Grandfather Paternal Grandmother Sister 1 Jordyn Alive Sister 2 Aminta Alive Social History Tobacco Use Types Packs/Day Years Used Date Smoking Tobacco: Never Smokeless Tobacco: Never Tobacco Cessation:Counseling Given: Not Answered Alcohol Use Standard Drinks/Week Comments Never 0 (1 standard drink = 0.6 oz pur e alcohol) Humiliation, Afraid, Rape, and Kick questionnair e Answer Date Recorded Within the last year, have y ou been afraid of your partner or ex-partner? No 04/26/2021 Within the last year, have y ou been humiliated or emotionally abused in other ways by your partner or ex-partner? No Within the last year, have y ou been kicked, hit, slapped, or otherwise physically hurt by your partner or ex-partner? No 04/26/2021 Within the last year, have y ou been raped or forced to have any kind of sexual activity by your partner or ex-partner? No 04/26/2021 Social Connection and Isolat ion Panel [NHANES] Answer Date Recorded In a typical week, how many times do you talk on the phone with family, friends, or neighbors? More than three times a week 11/25/2022 How often do you get togethe r with friends or relatives? More than three times a week 11/25/2022 How often do you attend chur or latter-day services? Never 11/25/2022 Do you belong to any clubs o r organizations such as amish groups, unions, fraternal or athletic groups, or school groups? Patient declined 11/25/2022 How often do you attend meet ings of the clubs or organizations you belong to? Never 11/25/2022 Are you , , di vorced, , never , or living with a partner? 11/25/2022 AUDIT-C Answer Date Recorded Q1: How often do you have a drink containing alcohol? Never 05/04/2024 Q2: How many drinks containi ng alcohol do you have on a typical day when you are drinking? Patient does not drink Frequency of Binge Drinking Not on file 04/09 Overall Financial Resource Strain (CARDIA) Answe r Date Recorded How hard is it for you to pa y for the very basics like food, housing, medical care, and heating? Not hard at all 11/25/2022 PHQ-2 Answer Date Recorded PHQ-2 Total Score (If total score is 3 or more points, staff should administer the PHQ-9) 2 03/30/2022 [facility] - Occupational Stress Questionnaire Answer Date Recorded Do you feel stress - tense, restless, nervous, or anxious, or unable to sleep at night because your mind is troubled all the time - these days? Not at all 04/26/2021 Exercise Vital Sign Answer Date Recorde d On average, how many days pe r week do you engage in moderate to strenuous exercise (like a brisk walk)? 0 days 04/26/2021 On average, how many minutes do you engage in exercise at this level? 0 min 04/26/2021 Hunger Vital Sign Answer Date Recorded Within the past 12 months, y ou worried that your food would run out before you got the money to buy more. Never true 11/03/19 23 Within the past 12 months, t he food you bought just didn't last and you didn't have money to get more. Never true 11/02/2022 PRAPARE - Transportation Answer Date Re corded In the past 12 months, has l ack of transportation kept you from medical appointments or from getting medications? No 11/08 In the past 12 months, has l ack of transportation kept you from meetings, work, or from getting things needed for daily living? No 11/25/2022 Housing Stability Vital Sign Answer Papo e Recorded In the last 12 months, was t here a time when you were not able to pay the mortgage or rent on time? No 11/25/2022 In the last 12 months, how many places have you lived? 1 11/25/2022 In the last 12 months, was t here a time when you did not have a steady place to sleep or slept in a group home (including now)? No 11/25/2022 Personal Safety Answer Date Recorded Have you ever been in or are you currently in a harmful physical or emotional relationship or is someone making you feel afraid or unsafe? Denies 04/24/2023 Comments No Sex and Gender Information Value Date Recorded Sex Assigned at Not on file Legal Sex Female 5:07 PM LIVESTOCK YARD ATTENDANT Gender Identity Female 12/23/2020 2:56 PM LIVESTOCK YARD ATTENDANT Sexual Orientation Straight 12/23/2020 2: 56 PM LIVESTOCK YARD ATTENDANT Obstetrics History Para Term AB IAB SAB Ectopic Multiple Livin g Live Births 2 2 2 2 Date Outcome GA Total Labor Labor/2nd/3rd Weight Sex Type Anes PTL Ramona A1 A5 Name Clin Term Term Last Filed Vital Signs Vital Sign Reading Time Taken Comments Blood Pressure 113/75 05/04/2024 9:19 AM CDT Pulse 76 05/04/2024 9:19 AM CDT Temperature 36.6 C (97.8 F) 04/11/2024 8:18 AM LIVESTOCK YARD ATTENDANT Respiratory Rate 20 05/04/2024 9:19 AM CDT Oxygen Saturation 93% 05/04/2024 9:19 AM CDT Inhaled Oxygen Concentration - - Weight 112.5 kg (248 lb) 04/11/2024 8:18 AM LIVESTOCK YARD ATTENDANT Height 167.6 cm (5' 6 ) 04/11/2024 8:18 AM LIVESTOCK YARD ATTENDANT Body Mass Index 40.03 04/11/2024 8:18 AM LIVESTOCK YARD ATTENDANT Plan of Treatment Health Maintenance Due Date Last Done Comments Hepatitis C Screening 1970 DTaP/Tdap/Td Vaccine (1 - Tdap) 1981 Hepatitis B Screening 02/22/1988 Zoster Vaccine (1 of 2) 02/22/2020 Depression Screening 03/30/2023 03/30/2022, 11/21/2020, 12/19/2019, Additional history exists Regular Well Visit/Exam 18-64 07/14/2023 07/13/2022, 06/21/2020 Covid-19 Vaccine ( season) 2023 06/24/2020, 06/05/2020, 05/10/2020, Additional history exists Breast Cancer Screening-Mammogram 04/29/2024 04/30/2023, 10/11/2019, 10/11/2019, Additional history exists Colon Cancer Screening-Colonoscopy 05/08/2026 05/08/2021 Cervical Cancer Screening Discontinued 06/21/2020 Influenza Vaccine Completed 11/19/2023, , 12/28/2019, Additional history exists Pneumococcal vaccine <65 Aged Out No longer eligible based on patient's age to complete this topic Goals Goal Patient Goal Type Associated Problems Recent Progress Patient-Stated? Author RANGEL General Goal - Patient is knowledgeable about condition when worsening and how to respond ACO Care Management On track(2022 12:04 PM CDT) Harika Garrido, RN Note: Problem: Knowledge deficit related to signs and symptoms of worsening condition Interventions: - Assess patient's level of understanding related to their condition(s), specific medications and self-management of their chronic conditions. - Send educational materials to patient related to their chronic condition, including signs and symptoms, self-management actions, and serious symptoms that require urgent medical intervention. - Assist patient/provider in developing an action plan for symptom management. - Review with patient weekly: s/s worsening condition, self-management actions to take, when to call CM or provider. Procedures Procedure Name Priority Date/Time Associated Diagnosis Comments PAIN MGMT IMAGING LUMBAR/SACRAL SELECTIVE NERVE ROOT INJ (TFE) BILATERAL Schedule Routine, Read Routine (OP Routine) 05/04/2024 9:09 AM CDT Spinal stenosis of lumbar region, unspecified whether neurogenic claudication present Lumbar radiculopathy PAIN MGMT IMAGING LUMBAR/SACRAL SELECTIVE NERVE ROOT INJ (TFE) BILATERAL Schedule Routine, Read Routine (OP Routine) 04/21/2024 9:34 AM CDT Spinal stenosis of lumbar region, unspecified whether neurogenic claudication present MRI LUMBAR SPINE WO CONTRAST Schedule Routine, Read Routine (OP Routine) 03/27/2024 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 Low back pain, unspecified back pain laterality, unspecified chronicity, unspecified whether sciatica present DIAGNOSTIC MAMMOGRAM BILATERAL W ABDI Schedule Routine, Read Routine (OP Routine) 04/30/2023 9:52 AM CDT Other abnormal and inconclusive findings on diagnostic imaging of breast COLONOSCOPY Routine 05/08/2021 THINPREP PAP WITH HPV Routine 06/21/2020 3:35 PM CDT Screening for cervical cancer from Last 3 Months or Most Recently Relevant to Health Maintenance Results * Imaging Lumbar/Sacral Selective Nerve Root INJ (TFE) Bilateral (15551) (05/04/2024 9:09 AM CDT) Narrative RAD_OCTAVIA_LARISA_MHE - 05/04/2024 10:08 AM CDT The images from this study are not interpreted by Radiology. Please refer to the physician's procedure / OR operative note. us Krystina Perea MD IMJaylan PAIN MGMT PROCEDURES Final R esult RAD_CLARIO_MHB_MHE * Imaging Lumbar/Sacral Selective Nerve Root INJ (TFE) Bilateral (96282) (04/21/2024 9:34 AM CDT) Narrative CARRIE_MHB_MHE - 04/21/2024 12:16 PM CDT The images from this study are not interpreted by Radiology. Please refer to the physician's procedure / OR operative note. 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 No provided history of radiculopathy. No provided history of trauma or inciting and/or aggravating events. No provided past medical or surgical history. TECHNIQUE: Sagittal and axial imaging of the lumbar spine includes T1, T2, STIR sequences. Images saved to PACS. COMPARISON: Lumbar spine radiograph 01/20/2024; CT lumbar spine without contrast 10/02/2022 and 09/20/2022; MRI lumbar spine without contrast 10/28/2022. FINDINGS: SEGMENTATION: The lowest fully formed intervertebral disc level is labeled L5-S1, noting rudimentary S1-2 disc. ALIGNMENT: Alignment and curvature unchanged. VERTEBRAE: No MR evidence of acute-subacute fracture. Vertebral body heights unchanged. Spondylosis. Scattered hemangiomas and patchy fatty marrow replacement about the osseous architecture. DISC HEIGHT: Multilevel variable intervertebral disc desiccation and loss of intervertebral disc height of the lower thoracic through lumbar spine. HARDWARE: None in the lumbar spine. CORD/CAUDA: Normal in size and signal intensity with conus medullaris termination at T12-L1. LOWER THORACIC: Incompletely imaged. No stenosis demonstrated. INDIVIDUAL DISC LEVELS: L1-2: No diffuse disc bulge or focal herniation. No spinal canal stenosis. No neural foraminal stenosis. L2-3: Slightly overhanging posterior cortical margin with mild annular disc bulge. Bilateral hypertrophic facet arthropathy, noting slight fluid in the facet joints suggestive of facet synovitis. Mild ligamentum flavum thickening. No spinal canal stenosis. No neural foraminal stenosis. L3-4: Slightly overhanging posterior cortical margin with mild annular disc bulge. Bilateral hypertrophic facet arthropathy, noting fluid in the facet joints suggestive of facet synovitis. Ligamentum flavum thickening. Slight compromise of the bilateral lateral recesses. No spinal canal stenosis. Mild right and slight left neural foraminal stenosis, noting combination of disc and arthropathic facet slight contact with the exiting right L3 nerve root. L4-5: Slight uncovering of the intervertebral disc with annular disc bulge. Marked bilateral hypertrophic facet arthropathy, noting fluid in the facet joints suggestive of facet synovitis. Ligamentum flavum thickening. Compromise of the bilateral lateral recesses, noting combination of disc and arthropathic facet variable contact with descending bilateral L5 nerve roots. Moderate-severe spinal canal stenosis. Moderate-severe left and moderate right neural foraminal stenosis, noting combination of disc and arthropathic facet variable contact with exiting bilateral L4 nerve roots. L5-S1: Slight uncovering of the intervertebral disc. Marked bilateral hypertrophic facet arthropathy, noting fluid in the facet joints suggestive of facet synovitis. Ligamentum flavum thickening. Slight compromise of the bilateral lateral recesses, noting arthropathic facet contact with the descending bilateral S1 nerve roots. With MPR analysis, mild-moderate spinal canal stenosis. Moderate left and mild right neural foraminal stenosis, noting variable slight disc contact with the exiting bilateral L5 nerve roots. SACRUM: Visualized upper sacrum intact. VISUALIZED UPPER ABDOMEN: No significant abnormality. OTHER: Sarcopenia manifested as variably robust fatty atrophy of the visualized musculature. IMPRESSION: Constellation of spondylolisthesis, spondylosis, and degenerative disc disease of the lumbar spine as detailed level by level above. THIS IS AN ELECTRONICALLY VERIFIED FINAL REPORT 03/28/2024 8:43 AM - Electronically signed by Tony Ybarra M.D. ELO T: Report ID: [id number] Reading Location: [id number] Procedure Note Tony Ybarra MD - 03/28/2024 EXAM DESCRIPTION: MRI LUMBAR SPINE WO CONTRAST REASON FOR STUDY: Chronic low back pain. No provided history of radiculopathy. No provided history of trauma or inciting and/oraggravating events. No provided past medical or surgical history. TECHNIQUE: Sagittal and axial imaging of the lumbar spine includes T1,T2, STIR sequences. Images saved to PACS. COMPARISON: Lumbar spine radiograph 01/20/2024; CT lumbar spine without contrast 10/02/2022 and 09/20/2022; MRI lumbar spine without contrast 10/28/2022. FINDINGS: SEGMENTATION: The lowest fully formed intervertebral disclevel is labeled L5-S1, noting rudimentary S1-2 disc. ALIGNMENT: Alignment and curvature unchanged. VERTEBRAE: No MR evidence of acute-subacute fracture. Vertebral body heights unchanged. Spondylosis. Scattered hemangiomas and patchy fatty marrow replacement about the osseous architecture. DISC HEIGHT: Multilevel variable intervertebral disc desiccation andloss of intervertebral disc height of the lower thoracic through lumbar spine. HARDWARE: None in the lumbar spine. CORD/CAUDA: Normal in size and signal intensity with conus medullaris termination at T12-L1. LOWER THORACIC: Incompletely imaged. No stenosis demonstrated. INDIVIDUAL DISC LEVELS: L1-2: No diffuse disc bulge or focal herniation. No spinal canalstenosis. No neural foraminal stenosis. L2-3: Slightly overhanging posterior cortical margin with mild annulardisc bulge. Bilateral hypertrophic facet arthropathy, noting slight fluid inthe facet joints suggestive of facet synovitis. Mild ligamentum flavum thickening. No spinal canal stenosis. No neural foraminal stenosis. L3-4: Slightly overhanging posterior cortical margin with mild annulardisc bulge. Bilateral hypertrophic facet arthropathy, noting fluid in thefacet joints suggestive of facet synovitis. Ligamentum flavum thickening.Slight compromise of the bilateral lateral recesses. No spinal canal stenosis.Mild right and slight left neural foraminal stenosis, noting combination ofdisc and arthropathic facet slight contact with the exiting right L3 nerveroot. L4-5: Slight uncovering of the intervertebral disc with annular discbulge. Marked bilateral hypertrophic facet arthropathy, noting fluid in the facet joints suggestive of facet synovitis. Ligamentum flavum thickening. Compromise of the bilateral lateral recesses, noting combination of discand arthropathic facet variable contact with descending bilateral L5 nerveroots. Moderate-severe spinal canal stenosis. Moderate-severe left and moderate right neural foraminal stenosis, noting combination of disc andarthropathic facet variable contact with exiting bilateral L4 nerve roots. L5-S1: Slight uncovering of the intervertebral disc. Marked bilateral hypertrophic facet arthropathy, noting fluid in the facet jointssuggestive of facet synovitis. Ligamentum flavum thickening. Slight compromise of the bilateral lateral recesses, noting arthropathic facet contact with the descending bilateral S1 nerve roots. With MPR analysis, mild-moderatespinal canal stenosis. Moderate left and mild right neural foraminal stenosis, noting variable slight disc contact with the exiting bilateral L5 nerveroots. SACRUM: Visualized upper sacrum intact. VISUALIZED UPPER ABDOMEN: No significant abnormality. OTHER: Sarcopenia manifested as variably robust fatty atrophy of the visualized musculature. IMPRESSION: Constellation of spondylolisthesis, spondylosis, and degenerative disc disease of the lumbar spine as detailed level by level above. THIS IS AN ELECTRONICALLY VERIFIED FINAL REPORT 03/28/2024 8:43 AM - Electronically signed by Tony GASCA T: Report ID: [id number] Reading Location: [id number] Anupam Rae DO IM MRI PROCEDURES Final Result * Diagnostic Mammogram Bilateral W Abdi (04/30/2023 9:52 AM CDT) Anatomical Region Laterality Modality Breast Bilateral Mammography 04/30/2023 10:3 8 AM CDT Narrative 04/30/2023 10:45 AM CDT EXAM DESCRIPTION: US BREAST BILATERAL LIMITED; DIAGNOSTIC MAMMOGRAM BILATERAL W ABDI REASON FOR STUDY: 53-year-old female presents for follow-up of multiple probably benign masses in both breasts. COMPARISON: 02/05/2021, 06/27/2020, 04/10/2020, 01/12/2020, 12/28/2019, 10/11/2019, 03/30/2019 TECHNIQUE: CC and MLO views of the bilateral breasts were obtained with digital technique using breast tomosynthesis with C view. Limited ultrasound of the bilateral breasts was performed with grayscale and color Doppler. FINDINGS: DENSITY: The breasts are extremely dense, which lowers the sensitivity of mammography. MAMMOGRAM FINDINGS: There is an unchanged biopsy marking clip in the inner right breast. There are numerous benign-appearing scattered calcifications in both breasts which have not suspiciously changed. There are multiple similar appearing round and oval circumscribed masses in both breasts. These too have not suspiciously changed and are considered to be benign based on their morphology, multiplicity, and bilaterality. Some of these masses have fluctuated in comparison with prior examinations, consistent with benign fluctuating cysts. There is no definite new suspicious finding in either breast on mammogram. ULTRASOUND FINDINGS: Targeted ultrasound of the right breast at 12 o'clock, 3 cm from the nipple demonstrates a 6 x 7 x 7 mm oval circumscribed hypoechoic mass with increased through transmission and no evidence of internal blood flow on color Doppler. By ultrasound, this mass has not suspiciously changed for over 2 years, evidence of a benign etiology. Targeted ultrasound of the right breast at 2 o'clock, 5 cm from the nipple demonstrates a 6 x 5 x 6 mm oval circumscribed hypoechoic mass with increased through transmission and no evidence of internal blood flow on color Doppler. By ultrasound, this mass has not suspiciously changed for over 2 years, evidence of a benign etiology. Targeted ultrasound of the left breast at the 12 o'clock position, 3 cm from the nipple demonstrates a 10 x 6 x 8 mm oval circumscribed mass with mixed hypoechoic and anechoic internal echotexture, increased through transmission, and no evidence of internal blood flow on color Doppler. By ultrasound, this mass has not suspiciously changed for over 2 years, evidence of a benign etiology. Targeted ultrasound of the left breast at 1:30 o'clock, 5 cm from the nipple demonstrates a 7 x 8 x 8 mm oval circumscribed hypoechoic mass with increased through transmission and no evidence of internal blood flow on color Doppler. By ultrasound, this mass has not suspiciously changed for over 2 years, evidence of a benign etiology. Targeted ultrasound of the left breast at 9 o'clock, 4-5 cm from the nipple demonstrates a 5 x 3 x 6 mm oval circumscribed hypoechoic mass with increased through transmission and no evidence of internal blood flow on color Doppler. By ultrasound, this mass has not suspiciously changed for over 2 years, evidence of a benign etiology. IMPRESSION: 1. The multiple similar appearing probably benign masses in both breasts have not suspiciously changed for over 2 years, evidence of benign etiologies. 2. No evidence of malignancy in either breast on mammogram or targeted ultrasound (as detailed above). Monthly self-breast physical examination and screening mammogram in 1 year are recommended. BIRADS 2 - Benign findings. The patient has been notified of these results and recommendations. THIS IS AN ELECTRONICALLY VERIFIED FINAL REPORT 04/30/2023 10:45 AM - Electronically signed by Rodolfo Welch M.D. MD: Report ID: [id number] Reading Location: MAMME Jared Mistry MD IMG MAMMO PROCEDURES Final Result * Colonoscopy (05/08/2021) Anatomical Region Laterality Modality Other Historical Provider ENDOSCOPY PROCEDURES Emmie l Result * (ABNORMAL) ThinPrep Pap with HPV (06/21/2020 3:35 PM CDT) Pap test 06/21/2020 3:35 PM CDT 06/24/2020 11:36 AM CDT Narrative 06/27/2020 9:56 AM CDT [facility] [address] [place], [place] [id number] Final Report with Addendum Patient Name: SANDRA SOLIMAN Address: [address] [place] [address] Gender: F : 1970 (Age: 50) Service: Laboratory Location: Lab [facility] #: [id number] Patient Type: Ref Lab Taken: 06/21/2020 Received: 06/24/2020 Accessioned:: 06/25/2020 Reported: 06/27/2020 Physician(s): Lad[facility]. [facility] Diagnosis: Source of Specimen: Screening ThinPrep Imaged Pap w/HPV Specimen Adequacy: - Satisfactory for evaluation; endocervical/transformation zone component present General Category: - Epithelial cell abnormality Interpretation/Results: - Atypical squamous cells of undetermined significance - Numerous RBC's ANGELIKA Gee(ASCP) Grayson Tony M.D. Report Electronically Reviewed and Signed Out By Grayson Tony M.D. 06/27/2020 09:56:11 Addenda: HPV Test Interpretation NEGATIVE for types 16, 18, 31, 33, 35, 39, 45, 51, 52, 56, 58, 59, 66 and 68. Test performed utilizing Gen-Probe Aptima assay. ANGELIKA Bonilla(ASC) Report Electronically Reviewed and Signed Out By [facility]LLA [facility]) 06/26/2020 11:54:38 Specimen(s) Received: A: Screening ThinPrep Imaged Pap w/HPV Clinical History: Menstrual History: Post-menopausal The Pap test is a screening test used to aid in the detection of cervical cancer and its precursors. It should not be the sole means by which malignant and premalignant lesions are diagnosed. Both false negative and false positive results may occur. It also has poor sensitivity for the detection of endometrial lesions and should not be used to evaluate suspected endometrial abnormalities. For these reasons it is most important to obtain Pap tests at regular intervals. The performance characteristics of some immunohistochemical stains, fluorescence in-situ hybridization tests and immunophenotyping by flow cytometry cited in this report (if any) were determined by the Surgical Pathology Department at [facility] as part of an ongoing housing quality standard inspector program and in compliance with federally mandated regulations drawn from the Clinical Laboratory Improvement Act of 1988 (CLIA '88). Some of these tests rely on the use of analyte specific reagents and are subject to specific labeling requirements by the US Food and Drug Administration. Such diagnostic tests may only be performed in a facility that is certified by the Department of Health and Human Services as a high complexity laboratory under CLIA '88. The FDA has determined that such clearance or approval is not necessary. This test is used for clinical purposes. It should not be regarded as investigational or for research. Nevertheless, federal rules concerning the medical use of analyte specific reagents require that the following disclaimer be attached to the report: This test was developed and its performance characteristics determined by the Surgical Pathology Department [facility]. It has not been cleared or approved by the U. S. Food and Drug Administration. Chuck Medeiros DO LAB CYTOLOGY ORDERABLE S Final Result from Last 3 Months or Most Recently Relevant to Health [place] [id number] [facility] [place] [address] [facility] [place] [address] [facility] Advance Directives For more information, please contact: [phone] * Full Code (Latest Code Status on File) Date Activated Date Inactivated Comments 10/28/2022 9:33 PM 11/08/2022 3:36 PM * Full Code Date Activated Date Inactivated Comments 04/26/2021 8:53 AM 04/29/2021 5:42 PM * Full Code Date Activated Date Inactivated Comments 08/24/2020 4:20 PM 08/27/2020 1:36 PM 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
--- OUTSIDE RECORDS SUMMARY | 2024-05-25 08:18 | XMS_ITS | Referral Summary ---
Author Organization [facility] Brenda at the [facility] Address [address] [place] [address] Care Team Providers Care Rehabilitation Services Manager Name Role Phone Anupam Rae DO Primary Care Provider + Noy Nunez NP Unavailable + [phone] Krystina Perea MD Unavailable Encounters Date Type Department Care Team Description 05/04/2024 8:24 AM CDT - 05/04/2024 11:59 PM CDT Hospital Encounter [facility] Pain [facility] [address] [address] Krystina Perea MD Bulge of lumbar disc without myelopathy (Primary Dx); Spinal stenosis of lumbar region, unspecified whether neurogenic claudication present; Lumbar radiculopathy Discharge Disposition: Discharge to home or self care 04/21/2024 8:20 AM CDT - 04/21/2024 11:59 PM CDT Hospital Encounter [facility] Pain Mgmt [address] [place] [address] Krystina Perea MD Lumbar radiculopathy (Primary Dx); Spinal stenosis of lumbar region, unspecified whether neurogenic claudication present; Bulge of lumbar disc without myelopathy Discharge Disposition: Discharge to home or self care 04/11/2024 8:10 AM TECHNICAL MARKETING CONSULTANT - 04/11/2024 11:59 PM TECHNICAL MARKETING CONSULTANT Hospital Encounter [facility] Pain Mgmt [address] [facility] [address] [place] [address] Krystina Perea MD Spinal stenosis of lumbar region, unspecified whether neurogenic claudication present (Primary Dx); Toenail fungus; Bulge of lumbar disc without myelopathy; Neural foraminal stenosis of lumbar spine; Radiculopathy, lumbar region Discharge Disposition: Discharge to home or self care 03/27/2024 3:47 PM TECHNICAL MARKETING CONSULTANT - 03/27/2024 11:59 PM TECHNICAL MARKETING CONSULTANT Hospital Encounter [facility] MRI [address] [place] [address] Low back pain, unspecified back pain laterality, unspecified chronicity, unspecified whether sciatica present Discharge Disposition: Discharge to home or self care from Last 3 Months Allergies Active Allergy Reactions Criticality Noted Date [...] 10/16/2021 Assessment & Plan (03/30/2022 11:37 AM TECHNICAL MARKETING CONSULTANT): Will continue with auto titrating CPAP set [...] 07/27/2016 Assessment & Plan (12/19/2019 2:31 PM TECHNICAL MARKETING CONSULTANT): Patient is well controlled. Continue current treatment. Gastroesophageal reflux disease 05/24/2013 Assessment & Plan (11/09/2022 5:11 PM CDT): This problem is chronic and stable I have ordered Protonix Assessment & Plan (12/12/2018 11:00 AM TECHNICAL MARKETING CONSULTANT): Patient is well controlled. Continue current treatment. [...] 07/13/2022 Hypokalemia due to loss of potassium 06/04/2022/08/202207/13/2022 Line sepsis 06/04/2022 06/04/2022 07/13/2022 Pleural effusion [...] 3 months Bilateral foot pain 05/14/2021 03/30/19 Assessment & Plan (05/14/2021 1:53 PM CDT): [...] (08/01/2020): Added automatically from request for surgery [id number] Pre-op exam 07/29/2020 11/21/2020 Assessment & Plan [...] 11/21/2020 Assessment & Plan (01/11/2019 3:48 PM TECHNICAL MARKETING CONSULTANT): Mammogram No caffeine Tylenol arthritis Peripheral edema 12/12/2018 12/10/2020 Assessment & Plan (12/19/2019 2:34 PM TECHNICAL MARKETING CONSULTANT): Lab Decrease amlodipine to 5 mg daily Assessment & Plan (12/12/2018 10:59 AM TECHNICAL MARKETING CONSULTANT): Lab Respiratory infection 10/20/20182020 Assessment & Plan [...] amlodipine Assessment & Plan (12/19/2019 2:31 PM TECHNICAL MARKETING CONSULTANT): Patient is well controlled. Continue current treatment. Assessment & Plan (11/27/2019 11:51 AM CDT): Patient is well controlled. Continue current treatment. Assessment & Plan (11/24/2019 9:13 AM CDT): Patient is well controlled. Continue current treatment. Assessment & Plan (07/18/2019 9:28 AM CDT): Patient is well controlled. Continue current treatment. Assessment & Plan (12/12/2018 11:00 AM TECHNICAL MARKETING CONSULTANT): Patient is well controlled. Continue current treatment. Assessment & Plan (08/15/2018 12:04 PM CDT): Patient is well controlled. Continue current treatment. Assessment & Plan (07/11/2018 12:01 PM CDT): Patient is well controlled. Continue current treatment. Immunizations Immunization Administration Dates Next Due Influenza, Quadrivalent, Spl it, Intramuscular 12/20/1996 Influenza, Quadrivalent, Spl it, Preservative Free, Intramuscular 11/30/2022,12/19/2019 Influenza, Trivalent, IM (MDV) 12/28/2019 Influenza, Unspecified 07/13/2022(Deferr ed: Patient Refused),11/27/2021(Deferred: Patient Refused),11/08/2021(Deferred: Patient Refused),11/08/2020(Deferred: Patient Refused),10/09/2020(Deferred: Patient Refused) PPD TEST 11/09/2022 Pfizer SARS-CoV-2 Monovalent Vaccination (12+ Yrs) PURPLE 06/24/2020,06/05/2020 Social History Tobacco Use Types Packs/Day Years [...] week 11/25/2022 How often do you attend [facility] or confucianism services? Never 11/25/2022 Do you belong to any clubs o r organizations such as nondenominational groups, unions, fraternal or athletic groups, or [...] staff should administer the PHQ-9) 2 03/30/2022 [facility] Occupational Stress Questionnaire Answer Date Recorded [...] place to sleep or slept in a long-term (including now)? No 11/25/2022 Personal Safety Answer Date Recorded Have you ever been in or are you currently in a harmful physical or emotional relationship or is someone making you feel afraid or unsafe? Denies 04/24/2023 Comments No Sex and Gender Information Value Date Recorded Sex Assigned at Not on file Legal Sex Female 5:07 PM TECHNICAL MARKETING CONSULTANT Gender Identity Female 12/23/2020 2:56 PM TECHNICAL MARKETING CONSULTANT Sexual Orientation Straight 12/23/2020 2: 56 PM TECHNICAL MARKETING CONSULTANT Last Filed Vital Signs Vital Sign Reading Time Taken Comments Blood Pressure 113/75 05/04/2024 9:19 AM CDT Pulse 76 05/04/2024 9:19 AM CDT Temperature 36.6 C (97.8 F) 04/11/2024 8:18 AM TECHNICAL MARKETING CONSULTANT Respiratory Rate 20 05/04/2024 9:19 AM CDT Oxygen Saturation 93% 05/04/2024 9:19 AM CDT Inhaled Oxygen Concentration - - Weight 112.5 kg (248 lb) 04/11/2024 8:18 AM TECHNICAL MARKETING CONSULTANT Height 167.6 cm (5' 6 ) 04/11/2024 8:18 AM TECHNICAL MARKETING CONSULTANT Body Mass Index 40.03 04/11/2024 8:18 AM TECHNICAL MARKETING CONSULTANT Plan of Treatment Not on file Goals Goal Patient Goal Type Associated Problems Recent Progress Patient-Stated? Author RANGEL General Goal - Patient is knowledgeable about condition when worsening and how to respond ACO Care Management On track(2022 12:04 PM CDT) No Harika Guerra, RN Note: Problem: Knowledge deficit related to [...] Read Routine (OP Routine) 03/27/2024 4:49 PM TECHNICAL MARKETING CONSULTANT Low back pain, unspecified back pain laterality, [...] Lumbar/Sacral Selective Nerve Root INJ (TFE) Bilateral (78655) (05/04/2024 9:09 AM CDT) Narrative RAD_OCTAVIA_B_E - 05/04/2024 10:08 AM CDT The images from this study are not interpreted by Radiology. Please refer to the physician's procedure / OR operative note. Krystina MARTINO PAIN MGMT PROCEDURES Final R [facility] RAD_CLARIO_MHB_MHE * Imaging Lumbar/Sacral Selective Nerve Root INJ (TFE) Bilateral ([id number]) (04/21/2024 9:34 AM CDT) Narrative RAD_CLARIO_MHB_MHE - 04/21/2024 12:16 PM CDT The images from this study are not interpreted by Radiology. Please refer to the physician's procedure / OR operative note. Krystina Perea MD [facility] PAIN MGMT PROCEDURES Final R esult RAD_CLARIO_MHB_MHE * MRI Lumbar Spine WO Contrast (03/27/2024 4:49 PM TECHNICAL MARKETING CONSULTANT) Anatomical Region Laterality Modality Spine N/A Magnetic Resonan ce 03/28/2024 8:36 AM TECHNICAL MARKETING CONSULTANT Narrative 03/28/2024 8:43 AM TECHNICAL MARKETING CONSULTANT EXAM DESCRIPTION: MRI LUMBAR SPINE WO CONTRAST [...] Tony Ybarra M.D. ELO T: Report ID: [id number] Reading Location: [place] [address] Procedure Note Tony Ybarra MD - 03/28/2024 [...] signed by Tony GASCA T: Report ID: [id number] Reading Location: [place] [address] us Anupam Rae DO IMG MRI PROCEDURES Final Result * Diagnostic Mammogram [...] AM - Electronically signed by Rodolfo Welch M.D., MD: Report ID: [id number] Reading Location: [facility] Jared Mistry MD IMG MAMMO PROCEDURES Final Result * Colonoscopy (05/08/2021) Anatomical Region Laterality Modality Other Historical Provider MD ENDOSCOPY PROCEDURES Emmie l Result * (ABNORMAL) ThinPrep Pap with HPV (06/21/2020 3:35 PM CDT) Pap test 06/21/2020 3:35 PM CDT 06/24/2020 11:36 AM CDT Narrative 06/27/2020 9:56 AM CDT [facility] Department of Pathology [address] [place], [place] [id number] Final Report with Addendum Patient Name: SANDRA SOLIMAN Address: [address] [place] [address] Gender: F : 1970 (Age: 50) Service: Laboratory Location: Lab [facility] #: [id number] Patient Type: Ref Lab Taken: 06/21/2020 Received: 06/24/2020 Accessioned:: 06/25/2020 Reported: 06/27/2020 Physician(s): Ladonna FoleyOChuck [facility] Diagnosis: Source of Specimen: Screening ThinPrep Imaged [...] Test performed utilizing Gen-Probe Aptima assay. ANGELIKA Bonilla(ASCP) Report Electronically Reviewed and Signed Out By ANGELIKA Bonilla(ASCP) 06/26/2020 11:54:38 Specimen(s) Received: A: Screening ThinPrep [...] determined by the Surgical Pathology Department at [facility] as part of an ongoing quality assurance group leader program and in compliance with federally mandated [...] characteristics determined by the Surgical Pathology Department [facility]. It has not been cleared or approved by the U. S. Food and Drug Administration. Chuck Medeiros DO LAB CYTOLOGY ORDERABLE S Final Result from Last 3 Months or Most Recently Relevant to Health Maintenance Insurance [facility] Advance Directives For more information, please contact: [phone] * Full Code (Latest Code Status on File) Date Activated Date Inactivated Comments 10/28/2022 9:33 PM 11/08/2022 3:36 PM * Full Code Date Activated Date Inactivated Comments 04/26/2021 8:53 AM 04/29/2021 5:42 PM * Full Code Date Activated Date Inactivated Comments 08/24/2020 4:20 PM 08/27/2020 1:36 PM Care Teams Rehabilitation Services Manager Relationship Specialty Start Date End Date Anupam Rae DO PCP - General Family Medicine 05/23/18 Noy Nunez NP Medical Oncologist/Valet Runner Medical Oncology 02/14/21 Krystina Perea MD Consulting Physician Pain Management 10/27/22
--- OUTSIDE RECORDS SUMMARY | 2024-05-25 08:18 | XMS_ITS | Encounter Summary ---
Author Organization [facility] Address [address] [place] [address] Care Team Providers Care Aemt Name Role Phone Anupam Rae DO Primary Care Provider + Ronal Wallace DO Unavailable [phone] Chuck Medeiros DO Unavailable [phone] Noy Nunez MACHINE CARTON MARKER Unavailable + [phone] Krystina Perea MD Unavailable Jose Alberto Garcia Unavailable [phone] Encounter Details Date Type Department Care Team (Late st Contact Info) Description 02/22/2023 Documentation [facility] OP Physical Therapy [address] [address] Lissette Onofre, PT Social History Tobacco Use Types Packs/Day Years Used Date Smoking Tobacco: Never Smokeless Tobacco: Never Alcohol Use Standard Drinks/Week Comments Never 0 [...] How often do you attend chur or evangelical services? Never 11/25/2022 Do you belong to any clubs o r organizations such as latter day groups, unions, fraternal or athletic groups, or school groups? Patient declined 11/25/2022 How often do you attend meet ings of the clubs or organizations you belong to? Never 11/25/2022 Are you , , di vorced, , never , or living with a partner? 11/25/2022 AUDIT-C Answer Date Recorded Q1: How often do you have a drink containing alcohol? Never 02/10/2023 Q2: How many drinks containi ng alcohol do you have on a typical day when you are drinking? Patient does not drink Q3: How often do you have si x or more drinks on one occasion? Never 02/10/2023 Overall Financial Resource Strain (CARDIA) Answe r Date Recorded How hard is it for you to pa y for the very basics like food, housing, medical care, and heating? Not hard at all 11/25/2022 PHQ-2 Answer Date Recorded PHQ-2 Total Score (If total score is 3 or more points, staff should administer the PHQ-9) 2 03/30/2022 [facility]at [facility] - Occupational Stress [...] place to sleep or slept in a custodial (including now)? No 11/25/2022 Personal Safety Answer Date Recorded Getting School Help Needed Denies 01/18 Comments No Sex and Gender Information Value Date Recorded Sex Assigned at Not on file Legal Sex Female 5:07 PM AND DRYING SUPERVISOR COOKING CASING Gender Identity Female 12/23/2020 2:56 PM AND DRYING SUPERVISOR COOKING CASING Sexual Orientation Straight 12/23/2020 2: 56 PM AND DRYING SUPERVISOR COOKING CASING documented as of this encounter Plan of Treatment Not on file documented as of this encounter Goals Goal Patient Goal Type Associated Problems [...] take, when to call CM or provider. documented as of this encounter Visit Diagnoses Not on filedocumented in this encounter Care Teams Aemt Relationship Specialty Start Date End Date Anupam Rae DO PCP - General Family Medicine 05/23/18 Ronal Wallace DO [address] [place] [address] Referring Physician Psychiatry 10/17/20 04/05/23 Chuck Medeiros DO [address] [place] [address] Consulting Physician Obstetrics and Gynecology 10/29/20 04/05/23 Noy Nunez, HEIDI [address] [place] [address] Medical Oncologist/Serials Librarian Medical Oncology 02/14/21 Krystina Perea MD [address] [place] [address] Consulting Physician Pain Management 10/27/22 Jose Alberto Garcia PA [address] [place] [address] Physician Personal Care Service Provider Emergency Medicine 04/05/23 4 documented as of this encounter
--- OUTSIDE RECORDS SUMMARY | 2024-05-25 08:18 | XMS_ITS | Clinical Summary ---
Author Organization [facility] Address [address] [place] [address] Phone Care Team Providers Care Digital Advertising Specialist Name Role Phone Anupam Oconnell DO Primary Care Provider [phone] Allergies Active Allergy Reactions Criticality Noted Date Comments Codeine Delirium Medium 05/22/2013 Escitalopram Delirium Medium 05/22/2013 Sulfa (Sulfonamide Antibiotics) Hives High 05/09 Medications metoprolol succinate ER 24 hour (TOPROL-XL) 25 mg tabletIndicatio ns:hypertension Take 50 mg by mouth daily . Active pantoprazole (PROTONIX) 40 mg Tablet, Delayed Release (E.C.)Indicatio ns:heartburn Take 40 mg by mouth daily . Active ARIPiprazole (ABILIFY) 10 mg tablet Take 1 Tablet (10 mg) by mouth daily. 30 Tablet 8 Active Additional Information Patient taking differently: 15 mgOral DAILY,Indications: depression, Informant: Pharmacy, Reported on 09/01/2018 buPROPion HCl (WELLBUTRIN XL) 150 mg Extended Release 24 hour tablet Take 1 Tablet (150 mg) by mouth daily custom designer. 30 Tablet 8 Active doxepin (SINEquan) 25 mg capsule Take 1 Capsule (25 mg) by mouth daily at bedtime. 30 Capsule 8 Active hydrOXYzine HCl (ATARAX) 25 mg tablet Take 25 mg by mouth 3 times daily as needed for Itching. Active topiramate (TOPAMAX) 50 mg tablet Take 1 Tablet (50 mg) by mouth 2 times daily. 60 Tablet 09/22/201 8 Active amLODIPine (NORVASC) 5 mg tablet Take 5 mg by mouth daily. 9 Active FLUoxetine (PROzac) 20 mg capsuleIndicati ons:depression Take 3 Capsules (60 mg) by mouth daily. 90 Capsule 9 Active traZODone (DESYREL) 100 mg tabletIndicatio ns:insomnia Take 1 Tablet (100 mg) by mouth daily at bedtime. 2 Tablet 9 Active gabapentin (NEURONTIN) 100 mg capsule Take 100 mg by mouth daily. Take 1 capsule daily. Active Active Problems Problem Noted Date Diagnosed Date JODEE (generalized anxiety disorder) 09/15/2019 JODEE (generalized anxiety disorder) 06/23/2019 Suicidal ideations 10/14/2016 Hallucinations 01/07/2016 Acute diarrhea 11/08/2015 History of congestive heart failure 11/08/2015 Sore throat 11/08/2015 Dysuria 11/08/2015 Sinusitis 05/25/2013 Anemia 05/24/2013 Gastroesophageal reflux disease 05/24/2013 Severe episode of recurrent major depressive disorder, with psychotic features 05/23/2013 Essential hypertension 05/22/2013 Depression 05/22/2013 Severe episode of recurrent major depressive disorder, without psychotic features Routine medical exam Immunizations Immunization Administration Dates Next Due ([employer])(12 YR UP) COVID-19 VACCINE - EMERGENCY USE AUTHORIZATION, MRNA, [id number](PF) 30 MCG/0.3 ML IM SUSP 06/24/2020,06/05/2020 Influenza Seasonal Unspecified Formulation IM Family History Medical History Relation Name Comments Cancer Father Other Mother Paranoid Behavior Sister Anxiety Son Depression Son Relation Name Status Comments Father Mother Sister Son Social History Tobacco Use Types Packs/Day Years Used Date Smoking Tobacco: Never Smokeless Tobacco: Never Alcohol Use Standard Drinks/Week Comments No 0 (1 standard drink = 0.6 oz pur e alcohol) Education Answer Date Recorded What is the highest level of school you have completed or the highest degree you have received? Bachelor's degree (e.g., BA, AB, BS) 08/09/2020 Comments No Sex and Gender Information Value Date Recorded Sex Assigned at Not on file Legal Sex Female 4:15 PM CDT Gender Identity Not on file Sexual Orientation Not on file Occupation Industry Job Start Date Job End Date Not on file Not on file Not on file Not on file Last Filed Vital Signs Vital Sign Reading Time Taken Comments Blood Pressure 117/73 08/09/2020 11:41 AM CDT Pulse 79 08/09/2020 11:41 AM CDT Temperature 37 C (98.6 F) 08/09/2020 11:41 AM CDT Respiratory Rate 18 08/09/2020 11:41 AM CDT Oxygen Saturation 95% 08/09/2020 11:41 AM CDT Inhaled Oxygen Concentration - - Weight 114.3 kg (252 lb) 08/09/2020 10:22 AM CDT Height 167.6 cm (5' 6 ) 02/16/2020 9:34 AM BOW MAKER Body Mass Index 40.67 02/16/2020 9:34 AM BOW MAKER Plan of Treatment Health Maintenance Due Date Last Done Comments DTAP/TDAP/TD VACCINES (1 - Tdap) 1989 HEPATITIS B VACCINES (1 of 3 - 19+ 3-dose series) 1989 HPV/Cotest (21-29) 1991 PAP SMEAR 1991 CERVICAL CANCER SCREENING 02/22/2000 HPV/Cotest (30-65) 02/22/2000 PAP SMEAR 02/22/2000 COLORECTAL SCREENING 2015 Colorectal Cancer Screening 2015 FIT-DNA Q 3 years 2015 FIT/FOBT Q 1 year 2015 Flex Sig/CT Colonography Q 5 years 2015 ZOSTER VACCINE (1 of 2) 02/22/2020 BREAST CANCER SCREENING 04/10/2021 04/11/19 21, 10/11/2019, 10/11/2019, Additional history exists INFLUENZA VACCINE (#1) 2023 0, 12/19/2019, 12/20/1996 COVID-19 Vaccine (2023-2 5 season) 2023 06/24/2020, 06/05/[address] [place] [address] [place] [id number] * Guarantor: [employer] [employer] [facility] (OM) Account Type Relation to Patient Date of Phone Billing Address Corporate Other [id number] [place] [id number] Advance Directives For more information, please contact: [phone] Documents on File Type Date Recorded Patient Medical Technologist Expl anation Advance Directive POA 10/28/2017 8:52 PM * Full Code (Latest Code Status on File) Date Activated Date Inactivated Comments 09/14/2019 9:43 PM 09/15/2019 5:49 PM * Full Code Date Activated Date Inactivated Comments 06/22/2019 9:20 PM 06/27/2019 1:38 PM * Full Code Date Activated Date Inactivated Comments 08/31/2018 6:34 PM 09/06/2018 8:12 PM * Full Code Date Activated Date Inactivated Comments 04/05/2018 4:19 PM 04/07/2018 8:40 PM * Full Code Date Activated Date Inactivated Comments 10/28/2017 8:26 PM 10/30/2017 6:20 PM Care Teams Digital Advertising Specialist Relationship Specialty Start Date End Date Anupam Oconnell DO PCP - General Family Practice 05/22/13
[2024-05-25 08:20] VITALS: BP 127/85; PULSE 84; RESP 18; TEMP 36.2; O2SAT 99
--- NOTE | 2024-05-25 09:06 | ED.GENADULT ---
HPI - General Adult General Chief complaint: Extremity Injury, Upper Stated complaint: Right Hand Time Seen by Provider: 05/25/24 08:40 Source: patient, family and RN notes reviewed Mode of arrival: ambulatory Limitations: no limitations History of Present Illness HPI narrative: 54-year-old female presents Express Care with her complaining of right hand weakness and numbness. Patient states she woke up with her symptoms started around 2:00 a.m. today. She denies any specific injury to her right hand. She said that she could not move her right ring finger is having a hard time grasping things with her right hand. She also reports that her hand feels numb. Patient also reports that she feels off balanced and that her legs feel different . Patient states she has a history of neuropathy in her feet however today she feels like her legs are feeling different. stated last time he saw her completely normal was around 11:00 p.m. last night. She denies any slurred speech, dizziness, confusion, chest pain, shortness of breath. Significant past medical history includes hypertension, anxiety, depression. Related Data Home Medications ?Medication ?Instructions ?Recorded ?Confirmed ?Last Taken ?Type amlodipine 5 mg tablet 5 mg PO DAILY 05/01/21 04/09/23 05/08/21 06:00 History aripiprazole 15 mg tablet 15 mg PO DAILY 05/01/21 04/09/23 Unknown History bupropion HCl 150 mg 24 hr tablet, 150 mg PO DAILY 05/01/21 04/09/23 Unknown History extended release doxepin 25 mg capsule 25 mg PO QPM 05/01/21 11/14/21 Unknown History ferrous gluconate 240 mg (27 mg 240 mg PO BID 05/01/21 04/09/23 05/03/21 History iron) tablet fluoxetine 20 mg capsule 60 mg PO DAILY 05/01/21 04/09/23 Unknown History gabapentin 300 mg capsule 300 mg PO QPM 05/01/21 04/09/23 Unknown History metoprolol succinate 100 mg 100 mg PO DAILY 05/01/21 04/09/23 05/08/21 06:00 History tablet,extended release 24 hr pantoprazole 40 mg tablet,delayed 40 mg PO DAILY 05/01/21 04/09/23 Unknown History release topiramate 50 mg tablet 50 mg PO BID 05/01/21 04/09/23 Unknown History syringe with needle 3 mL 25 x 5/8 10/18/21 10/18/21 Unknown History (BD Luer-Sree Syringe) tirzepatide (weight loss) 2.5 mg subcut 05/25/24 Unknown History mg/0.5 mL subcutaneous pen injector (Zepbound) Allergies Allergy/AdvReac Type Severity Reaction Status Date / Time codeine AdvReac Mild Gastrointestinal Verified 05/25/24 08:19 Upset Sulfa (Sulfonamide AdvReac Mild HYPER Verified 05/25/24 08:19 Antibiotics) escitalopram AdvReac Unknown Verified 05/25/24 08:19 lisinopril AdvReac Cough Verified 05/25/24 08:19 Review of Systems Review of Systems: CONSTITUTIONAL: Denies fever, chills, or sweats. EYES: Denies visual changes, redness, or discharge. ENT: Denies rhinorrhea, congestion, sore throat, or otalgia. CARDIOVASCULAR: Denies chest pain, palpitations, or edema. RESPIRATORY: Denies cough or dyspnea. GASTROINTESTINAL: Denies abdominal pain, nausea, vomiting, or diarrhea. GENITOURINARY: Denies dysuria or hematuria. SKIN: Denies rash or itching. MUSCULOSKELETAL: Denies back pain, injury, joint pain, or myalgia. Positive for right hand weakness. NEUROLOGIC: Denies headache and dizziness. Positive for focal weakness, and numbness and tingling. Negative for slurred speech, facial droop, confusion. PSYCHIATRIC: Denies anxiety or depression. All other systems reviewed are negative, except as documented in HPI. PMFSH Past Medical History Medical History GERD (gastroesophageal reflux disease) Anxiety Depression Social History Social History Smoking status: Never smoker Alcohol intake: former Substance use: never Substance use type: does not use Living arrangements: with family Spiritual care concerns: No Comments At the time of my signature, I reviewed and agree with the nursing past medical, surgical, social, and family history. There is no relevant family history pertinent to the patient complaint. Exam Narrative: GENERAL: This is a well-nourished, well-developed adult, in no apparent distress. They are non ill-appearing, nontoxic appearing. She is ambulatory with a steady gait. HEAD: normocephalic, atraumatic. EYES: Sclera clear/white. Vision is grossly intact. Extraocular movements intact. Pupils PERRLA. No nystagmus EARS: External ears normal, Hearing grossly intact. NOSE: External nose normal THROAT: Mucous membranes moist NECK: Normal range of motion CARDIOVASCULAR: Regular rate and rhythm RESPIRATORY: Normal respiratory rate, respiratory effort is nonlabored, no respiratory distress SKIN: warm, Dry, intact with no suspicious lesions or rash, good texture and turgor. NEURO: awake, alert, and oriented to person, place and time. Negative for arm or leg drift. Right management psychologist strength is weaker than left management psychologist. Sensation is impaired to right arm. Impaired sensation that is worse on the right leg than the left. Both feet with decreased sensation, patient can feel deep pressure, pedal pulse 2 +and palpable bilaterally. Patient is able to wiggle her toes, able to dorsiflex and plantar flex. Speech is clear, no facial droop, tongue is midline. EXTREMITIES: Right hand: No obvious deformity, injury, swelling, bruising. Radial pulse 2 +palpable. Capillary refill less than 2 seconds. Patient cannot make a complete fist and motor response is slow when moving her fingers. Patient's unable to coordinate an okay sign. Patient able to feel the pressure when pressing on the distal tips of her fingers. There is no pain. Bilateral feet: No obvious deformity, injury, swelling, bruising. Capillary refill less than 2 seconds. Feet are warm. See neuro assessment BACK: Nontender without deformity. Course Course Emergency Course: Patient is aware of diagnosis, understands and agrees to treatment plan. Anticipatory guidance given. Patient agrees to follow-up as directed and is aware of reasons to seek care at the emergency department. Portions of this record may have been created with voice recognition software Level of Care: Express Care Visit Vital Signs Vital signs: Vital Signs Temperature 97.2 F L 05/25/24 08:20 Pulse Rate 84 05/25/24 08:20 Respiratory Rate 18 05/25/24 08:20 Blood Pressure 127/85 05/25/24 08:20 Pulse Oximetry 99 05/25/24 08:20 Oxygen Delivery Room Air 05/25/24 08:20 Temperature 97.2 F L 05/25/24 08:20 Pulse Rate 84 05/25/24 08:20 Respiratory Rate 18 05/25/24 08:20 Blood Pressure 127/85 05/25/24 08:20 Pulse Oximetry 99 05/25/24 08:20 Oxygen Delivery Room Air 05/25/24 08:20 Reviewed Transfer Transfered to: [facility] Transportation: Other (Private vehicle) Transfer rationale: She is having unexplained neuro symptoms, she requires a higher level care. Patient was agreeable to go to [facility] Emergency Department. Her will take her. Accepting physician: Dr. Lew Medical Decision Making MDM Narrative Medical decision making narrative: Patient requires higher level of care due to unexplained neurological symptoms that the patient is presenting with. Patient was offered your transfer to a closer facility however she requested that she wanted to go to [facility] in [place] where she says her doctors are at. is agreeable to take her by private vehicle. Report was called to Erica HUNT and Dr. Black accepted the patient for transfer. Patient was advised to remain NPO in proceed immediately to the emergency department. Differential Diagnosis Differential Diagnosis: Nerve injury, CVA, hand injury, neuropathy Vital Signs Vital Signs: Vital Signs Temperature 97.2 F L 05/25/24 08:20 Pulse Rate 84 05/25/24 08:20 Respiratory Rate 18 05/25/24 08:20 Blood Pressure 127/85 05/25/24 08:20 Pulse Oximetry 99 05/25/24 08:20 Oxygen Delivery Room Air 05/25/24 08:20 Temperature 97.2 F L 05/25/24 08:20 Pulse Rate 84 05/25/24 08:20 Respiratory Rate 18 05/25/24 08:20 Blood Pressure 127/85 05/25/24 08:20 Pulse Oximetry 99 05/25/24 08:20 Oxygen Delivery Room Air 05/25/24 08:20 Critical Care Time Critical Care Time Critical Care Time: No Discharge Plan Discharge Clinical Impression: Weakness of right hand, Numbness and tingling Patient Disposition: Acute Care Hospital Condition: Stable Instructions: Antibiotic Form Patient Language: Telugu Prescriptions: No Action (DME) BD Luer-Sree Syringe 3 mL 25 x 5/8 syringe MISCELLANEOUS doxycycline hyclate 100 mg capsule 100 mg PO BID 7 Days Qty: 14 0RF Zepbound 2.5 mg/0.5 mL pen injector SUBCUT doxepin 25 mg capsule 25 mg PO QPM metoprolol succinate 100 mg tablet extended release 24 hr 100 mg PO DAILY amlodipine 5 mg tablet 5 mg PO DAILY pantoprazole 40 mg tablet,delayed release (DR/EC) 40 mg PO DAILY ferrous gluconate 240 mg (27 mg iron) tablet 240 mg PO BID gabapentin 300 mg capsule 300 mg PO QPM fluoxetine 20 mg capsule 60 mg PO DAILY aripiprazole 15 mg tablet 15 mg PO DAILY bupropion HCl 150 mg tablet extended release 24 hr 150 mg PO DAILY topiramate 50 mg tablet 50 mg PO BID Follow-up/Referrals: Kyra,Anupam Shields MD [Primary Care Provider] - Time of Disposition: 08:50
== END 2024-05-25 08:48 | disposition short-term general hospital (02) ==
PROVIDERS: PCP Family Medicine
DX: R53.1 Weakness (principal); R20.0 Anesthesia of skin; I10 Essential (primary) hypertension
CPT/HCPCS: 99212; G0463

== ENCOUNTER 2024-10-23 16:29 | Emergency (ER) | payer OTHER, SELFPAY ==
[2024-10-23 16:40] VITALS: BP 134/88; PULSE 81; RESP 16; TEMP 36.7; O2SAT 98
--- NOTE | 2024-10-23 16:40 | ED.EXTPRO ---
HPI - Extremity Problem General Chief complaint: Extremity Problem,Nontraumatic Stated complaint: Bilateral foot swelling Time Seen by Provider: 10/23/24 16:40 Source: patient Mode of arrival: ambulatory Limitations: no limitations History of Present Illness HPI Narrative: 54 yo F presents with pain and swelling to bilateral lower legs that started 4 days ago. Pt states she always as some swelling to both legs due to her back injury. does not think that swelling is any worse than usually. Pt states she has had some pain to her feet and has noticed pustules that she can pop and clear fluid comes out. Pt was recently discharged from psych floor at [facility]. States that her sympotms started when she was there but that she did not want to tell them about it. Buproprion was increased from 3oo to 450mg. Has appt with her PCP tomorrow Morning but states that she could not wait to see him due to foot pain. Patient then later said that feet were not hurting that bad and she was not taking any [id number] medications to treat her foot pain. Patient is ambulatory with steady gait. She is wearing shoes that are too tight causing soft tissues to spell out over top of shoes. All systems reviewed and negative except as noted above. Related Data Home Medications ?Medication ?Instructions ?Recorded ?Confirmed ?Last Taken ?Type amlodipine 5 mg tablet 5 mg PO DAILY 05/01/21 04/09/23 05/08/21 06:00 History aripiprazole 15 mg tablet 15 mg PO DAILY 05/01/21 04/09/23 Unknown History bupropion HCl 150 mg 24 hr tablet, 150 mg PO DAILY 05/01/21 04/09/23 Unknown History extended release doxepin 25 mg capsule 25 mg PO QPM 05/01/21 11/14/21 Unknown History ferrous gluconate 240 mg (27 mg 240 mg PO BID 05/01/21 04/09/23 05/03/21 History iron) tablet fluoxetine 20 mg capsule 60 mg PO DAILY 05/01/21 04/09/23 Unknown History gabapentin 300 mg capsule 300 mg PO QPM 05/01/21 04/09/23 Unknown History metoprolol succinate 100 mg 100 mg PO DAILY 05/01/21 04/09/23 05/08/21 06:00 History tablet,extended release 24 hr pantoprazole 40 mg tablet,delayed 40 mg PO DAILY 05/01/21 04/09/23 Unknown History release topiramate 50 mg tablet 50 mg PO BID 05/01/21 04/09/23 Unknown History syringe with needle 3 mL 25 x 5/8 10/18/21 10/18/21 Unknown History (BD Luer-Sree Syringe) tirzepatide (weight loss) 2.5 mg subcut 05/25/24 Unknown History mg/0.5 mL subcutaneous pen injector (Zepbound) Allergies Allergy/AdvReac Type Severity Reaction Status Date / Time codeine AdvReac Mild Gastrointestinal Verified 10/23/24 16:34 Upset Sulfa (Sulfonamide AdvReac Mild HYPER Verified 10/23/24 16:34 Antibiotics) escitalopram AdvReac Unknown Verified 10/23/24 16:34 lisinopril AdvReac Cough Verified 10/23/24 16:34 PMFSH Past Medical History Medical History GERD (gastroesophageal reflux disease) Anxiety Depression Social History Social History Smoking status: Never smoker Alcohol intake: former Substance use: never Substance use type: does not use Living arrangements: with family Spiritual care concerns: No Comments At time of signature, agree with nursing past medical, surgical, social and family history. There is no relevant family history pertinent to the presenting complaint. Exam Narrative: GENERAL: This is a well-nourished, well-developed patient, in no apparent distress. HEAD: normocephalic, atraumatic. EYES: PERRL. Sclera clear/white. Vision is grossly intact. EARS: External ears normal NOSE: External nose normal NECK: Neck supple, non-tender without lymphadenopathy, masses or thyromegaly. CARDIOVASCULAR: Regular rate and rhythm without murmurs, gallops, or rubs. RESPIRATORY: Clear to auscultation. Breath sounds equal bilaterally. No wheezes, rales, or rhonchi. SKIN: warm, Dry, intact with no suspicious lesions or rash, good texture and turgor. NEURO: awake, alert, and oriented to person, place and time. There were no obvious focal neurologic abnormalities. EXTREMITIES: Nonpitting swelling to bilateral lower extremities. There is no erythema, warmth or open wounds. There is petechiae to dorsal aspect of both feet where tops of tight shoes were sitting. There is no blisters or drainage noted. Course Course Level of Care: Express Care Visit Vital Signs Vital signs: Vital Signs Temperature 36.7 C 10/23/24 16:40 Pulse Rate 81 10/23/24 16:40 Respiratory Rate 16 10/23/24 16:40 Blood Pressure 134/88 10/23/24 16:40 Pulse Oximetry 98 10/23/24 16:40 Oxygen Delivery Room Air 10/23/24 16:40 Temperature 36.7 C 10/23/24 16:40 Pulse Rate 81 10/23/24 16:40 Respiratory Rate 16 10/23/24 16:40 Blood Pressure 134/88 10/23/24 16:40 Pulse Oximetry 98 10/23/24 16:40 Oxygen Delivery Room Air 10/23/24 16:40 Reviewed MDM - Extremity (Nontraumatic) MDM Narrative Medical decision making narrative: there is no erythema, warmth or open wounds concerning for infection or cellulitis. Swelling is bilateral and less likely to be related to a DVT. I offered transfer to ER for further evaluation of patient's symptoms and she declined. Will follow-up at scheduled appointment with her primary care physician tomorrow. Differential Diagnosis Differential diagnosis: Likely gout, cellulitis, lower extremity edema and deep vein thrombosis of lower extremity Discharge Plan Discharge Clinical Impression: Localized swelling of both lower legs Patient Disposition: Home Condition: Stable Instructions: Leg Edema (ED) Additional Instructions: Follow-up with your primary care physician tomorrow at scheduled appointment for further evaluation of bilateral leg swelling. For any worsening of your symptoms go to the ER immediately. Patient Language: Argentine Prescriptions: No Action (DME) BD Luer-Sree Syringe 3 mL 25 x 5/8 syringe MISCELLANEOUS doxycycline hyclate 100 mg capsule 100 mg PO BID 7 Days Qty: 14 0RF Zepbound 2.5 mg/0.5 mL pen injector SUBCUT doxepin 25 mg capsule 25 mg PO QPM metoprolol succinate 100 mg tablet extended release 24 hr 100 mg PO DAILY amlodipine 5 mg tablet 5 mg PO DAILY pantoprazole 40 mg tablet,delayed release (DR/EC) 40 mg PO DAILY ferrous gluconate 240 mg (27 mg iron) tablet 240 mg PO BID gabapentin 300 mg capsule 300 mg PO QPM fluoxetine 20 mg capsule 60 mg PO DAILY aripiprazole 15 mg tablet 15 mg PO DAILY bupropion HCl 150 mg tablet extended release 24 hr 150 mg PO DAILY topiramate 50 mg tablet 50 mg PO BID Follow-up/Referrals: Kyra,Anupam Shields MD [Primary Care Provider] Time of Disposition: 16:55
--- OUTSIDE RECORDS SUMMARY | 2024-10-23 18:56 | XMS_ITS | Clinical Summary ---
Author Organization [facility] Address [address] [place] [id number] Care Team Providers Care Marketing Database Consultant Name Role Phone Anupam Oconnell DO Primary Care Provider [phone] Social History Tobacco Use Types Packs/Day Years [...] wi th HPV 02/22/2000 Mammogram Screening 2010 Pneumococcal Vaccine: 50+ Years (1 of 1 - PCV) 02/22/2020 Zoster Vaccines (1 of 2) 02/22/2020 COVID-19 Vaccine (3 - 2024-2 6 season) 2024 06/24/2020, 06/05/2020 Meningococcal B Vaccine Aged Out No l onger eligible based on patient's age to complete this topic Meningococcal Vaccine Aged Out No enriqueta iman eligible based on patient's age to complete this topic RSV Immunizations Under 20 Months Aged Out No longer eligible b ased on patient's age to complete this topic Care Teams Marketing Database Consultant Relationship Specialty Start Date End Date Anupam Oconnell DO PCP - General 09/04/12
--- OUTSIDE RECORDS SUMMARY | 2024-10-23 18:56 | XMS_ITS | Clinical Summary ---
Author Organization [facility] Address [address] [place] [address] Phone Care Team Providers Care Rd Lab Technician Name Role Phone Anupam Oconnell DO Primary Care Provider [phone] Allergies Active Allergy Reactions Criticality Noted Date Comments Codeine Delirium Medium 05/22/2013 Escitalopram Delirium Medium 05/22/2013 Sulfa (Sulfonamide Antibiotics) Hives High 05/09 Medications pantoprazole (PROTONIX) 40 mg Tablet, Delayed Release (E.C.)Indicati ons:heartburn Take 40 mg by mouth daily . Active hydrOXYzine HCl (ATARAX) 25 mg tablet Take 25 mg by mouth 3 times daily as needed for Itching. Active topiramate (TOPAMAX) 50 mg tablet Take 1 Tablet (50 mg) by mouth 2 times daily. 60 Tablet 8 Active amLODIPine (NORVASC) 5 mg tablet Take 5 mg by mouth daily. 9 Active FLUoxetine (PROzac) 20 mg capsuleIndicat ions:depressio n Take 3 Capsules (60 mg) by mouth daily. 90 Capsule 9 Active gabapentin (NEURONTIN) 600 mg tablet Take 600 mg by mouth 2 times daily. 5 Active metoprolol succinate (TOPROL XL) 100 mg Extended Release 24 hour tablet Take 150 mg by mouth daily. 5 Active buPROPion HCL (FORFIVO XL) 450 mg Extended Release 24 hour tabletIndicati ons:depression Take 450 mg by mouth daily. 30 Tablet 1 5 Active cyclobenzaprin e (FLEXERIL) 10 mg tablet Take 1 Tablet (10 mg) by mouth 3 times daily as needed for Spasm. 90 Tablet 1 5 Active metoprolol succinate ER 24 hour (TOPROL-XL) 25 mg tabletIndicati ons:hypertensi on Take 50 mg by mouth daily . 025 Discontinued ARIPiprazole (ABILIFY) 10 mg tablet Take 1 Tablet (10 mg) by mouth daily. 30 Tablet 1 8 025 Discontinued buPROPion HCl (WELLBUTRIN XL) 150 mg Extended Release 24 hour tablet Take 1 Tablet (150 mg) by mouth daily early head start director. 30 Tablet 1 8 025 Discontinued doxepin (SINEquan) 25 mg capsule Take 1 Capsule (25 mg) by mouth daily at bedtime. 30 Capsule 1 8 025 Discontinued traZODone (DESYREL) 100 mg tabletIndicati ons:insomnia Take 1 Tablet (100 mg) by mouth daily at bedtime. 2 Tablet 9 025 Discontinued gabapentin (NEURONTIN) 100 mg capsule Take 100 mg by mouth daily. Take 1 capsule daily. 025 Discontinued buPROPion HCL (WELLBUTRIN XL) 300 mg Extended Release 24 hour tablet Take 300 mg by mouth daily. 025 Discontinued Active Problems Problem Noted Date Diagnosed Date PTSD (post-traumatic stress disorder) 10/15/2024 Dissociative identity disorder 10/15/2024 JODEE (generalized anxiety disorder) 09/15/2019 JODEE (generalized [...] disorder, without psychotic features Routine medical exam Encounters Date Type Department Care Team Description 10/17/2024 Plan of Care Documentation [facility] [address] [place] [address] 10/16/2024 Travel 10/14/2024 11:39 AM CDT - 10/20/2024 3:25 PM CDT Hospital Encounter [facility] [address] [place] [address] Tacho Kapadia DO Garcia Ferrer, Eduardo, MD Gao, Enquan, MD Shemwell, Kathryn, MD Severe episode of recurrent major depressive disorder, without psychotic features (CMS/HCC) Discharge Disposition: Home or Self Care 10/14/2024 Travel from Last 3 Months Immunizations Immunization Administration Dates Next Due (PFIZER)(12 YR UP) COVID-19 VACCINE - EMERGENCY USE AUTHORIZATION, MRNA, [id number](PF) 30 MCG/0.3 ML IM SUSP 06/24/2020,06/05/2020 Influenza [...] drink = 0.6 oz pur e alcohol) Feeling Safe Answer Date Recorded Are you in a relationship wi th someone who hurts you emotionally and/or physically? No 10/19/2024 Food Insecurity Answer Date Recorded Patient needs follow up regardin 10/16/2024 Transportation Needs Answer Date Record ed Patient needs follow up regardin 10/16/2024 Utility Needs Answer Date Recorded Patient needs follow up regardin 10/16/2024 Education Answer Date Recorded What is the [...] Sign Reading Time Taken Comments Blood Pressure 126/73 10/20/2024 7:04 AM CDT Pulse 70 10/20/2024 7:04 AM CDT Temperature 36.8 C (98.2 F) 10/20/2024 7:04 AM CDT Respiratory Rate 18 10/20/2024 7:04 AM CDT Oxygen Saturation 99% 10/20/2024 7:04 AM CDT Inhaled Oxygen Concentration - - Weight 98 kg (216 lb) 10/16/2024 2:00 PM CDT Height 165.1 cm (5' 5) 10/16/2024 2:00 PM CDT Body Mass Index 35.94 10/16/2024 2:00 PM CDT Plan of Treatment Health Maintenance Due Date Last Done Comments DTAP/TDAP/TD VACCINES (1 - Tdap) 1989 HEPATITIS B VACCINES (1 of 3 - 19+ 3-dose series) 1989 HPV/Cotest (21-29) 1991 CERVICAL CANCER SCREENING 02/22/2000 HPV/Cotest (30-65) 02/22/2000 PAP SMEAR 02/22/2000 FIT-DNA Q 3 years 2015 FIT/FOBT Q 1 year 2015 Flex Sig/CT Colonography Q 5 years 2015 ZOSTER VACCINE (1 of 2) 02/22/2020 INFLUENZA VACCINE (#1) 2024 , 11/30/2022, 12/28/2019, Additional history exists BREAST CANCER SCREENING 06/20/2025 06/21/19, 06/20/2024, 04/30/2023, Additional history exists Pre-Diabetes and Diabetes Screening 10/17/2027 10/16/2024, 09/01/2018, 10/28/2016 COLORECTAL SCREENING 05/09/2031 05/08/2021, 05/09/19 Colorectal Cancer Screening 05/09/2031 COVID-19 Vaccine Completed 11/19/2023, , 06/05/2020, Additional history exists Procedures Procedure Name Priority Date/Time Associated Diagnosis Comments LIPID PANEL Routine 10/16/2024 6:57 PM CDT COMPREHENSIVE METABOLIC PANEL Routine 10/16/2024 6:57 PM CDT CBC WITH DIFFERENTIAL Routine 10/16/2024 6:57 PM CDT ETHANOL LEVEL Routine 10/16/2024 6:57 PM CDT HEMOGLOBIN A1C Routine 10/16/2024 6:57 PM CDT TSH Routine 10/16/2024 6:57 PM CDT HCG QUALITATIVE, URINE Routine 6:22 PM CDT DRUG SCREEN, URINE Routine 10/16/2024 6: 22 PM CDT from Last 3 Months Results * (ABNORMAL) CBC WITH DIFFERENTIAL (10/16/2024 6:57 PM CDT) WBC 11.0(H) 4.0 - 9.8 K/uL 10/16/2024 8:56 PM CDT [facility] RBC 4.56 3.90 - 4.90 M/uL 10/16/2024 8:56 PM CDT [facility] HEMOGLOBIN 13.9 11.8 - 14.8 g/dL 10/16/2024 8:56 PM CDT [facility] HEMATOCRIT 42.3 35.5 - 44.0 % 10/16/2024 8:56 PM CDT [facility] MCV 92.8 82.0 - 99.0 fL 10/16/2024 8:56 PM CDT [facility] MCH 30.5 27.2 - 32.6 pg 10/16/2024 8:56 PM CDT [facility] MCHC 32.9 31.5 - 35.5 g/dL 10/16/2024 8:56 PM CDT [facility] RDW 12.5 11.5 - 14.5 % 10/16/2024 8:56 PM CDT [facility] RDW-STDEV 42.8 37.1 - 48.7 fL 10/16/2024 8:56 PM CDT [facility] [facility] PLATELETS 376(H) 140 - 350 K/uL 10/16/2024 8:56 PM CDT [facility] [facility] - . [facility] MPV 10.2 9.3 - 12.4 fL 10/16/2024 8:56 PM CDT [facility] [facility] - . [facility] NEUTROPHILS 66 % 10/16/2024 8:56 PM CDT [facility] [facility] - . [facility] LYMPHOCYTES 24 % 10/16/2024 8:56 PM CDT [facility] [facility] - . [facility] MONOCYTES 8 % 10/16/2024 8:56 PM CDT [facility] [facility] . [facility] EOSINOPHILS 1 % 10/16/2024 8:56 PM CDT [facility] - . [facility] BASOPHILS 0 % 10/16/2024 8:56 PM CDT [facility] - . [facility] IMMATURE GRANULOCYTES 1 % 10/16/2024 8:56 PM CDT [facility] [facility] - . [facility] Comment:IG (Immature Granulo cyte) count includes Metamyelocytes, Myelocytes, and Promyelocytes NEUTROPHIL ABSOLUTE 7.29(H) 1.90 - 7.00 K/uL 10/16/2024 8:56 PM CDT [facility] - . [facility] LYMPHOCYTE ABSOLUTE 2.64 0.70 - 4.50 K/uL 10/16/2024 8:56 PM CDT [facility] [facility] - . [facility] MONOCYTE ABSOLUTE 0.89 0.10 - 1.30 K/uL 10/16/2024 8:56 PM CDT [facility] - . [facility] EOSINOPHIL ABSOLUTE 0.10 0.00 - 0.70 K/uL 10/16/2024 8:56 PM CDT [facility] [facility] - . [facility] BASOPHILS ABSOLUTE 0.04 0.00 - 0.20 K/uL 10/16/2024 8:56 PM CDT [facility] [facility] - . [facility] IMMATURE GRANULOCYTES ABSOLUTE 0.05(H) 0.00 - 0.03 K/uL 10/16/2024 8:56 PM CDT [facility] [facility] - . [facility] Blood Venipuncture / Unknown 10/16/2024 6:57 PM CDT 10/16/2024 8:42 PM CDT Marvel Vilchis MD HEMATOLOGY ORDERABLES F inal Result [facility]# [id number] [address] [place] [address] * TSH (10/16/2024 6:57 PM CDT) Pathologist [facility] TSH 1.34 0.27 - 4.20 uIU/mL 10/16/2024 9:35 PM CDT [facility] Blood Venipuncture / Unknown 10/16/2024 6:57 PM CDT 10/16/2024 8:42 PM CDT Marvel Vilchis MD CHEMISTRY ORDERABLES Fi nal Result Performing Organization Address [facility] Co or Phone Number [facility]# [id number] [address] [place] [address] * HEMOGLOBIN A1C (10/16/2024 6:57 PM CDT) Pathologist [facility] HEMOGLOBIN A1C 5.2 <5.7 % 10/16/2024 9:04 PM CDT [facility] EST. AVG GLUCOSE, A1C 103 mg/dL 10/16/2024 9:04 PM CDT [facility] Blood Venipuncture / Unknown 10/16/2024 6:57 PM CDT 10/16/2024 8:41 PM CDT Narrative [facility] - 10/16/2024 9:04 PM CDT HGB A1C INTERPRETATION NORMAL: <5.7% PRE-DIABETES: 5.7 - 6.4% DIABETES: 6.5% OR GREATER Marvel Vilchis MD CHEMISTRY ORDERABLES Fi nal Result Performing Organization Address City/[facility]/ZIP Co de Phone Number [facility] [id number] [address] [place] [address] * ETHANOL LEVEL (10/16/2024 6:57 PM CDT) ETHANOL <10.10 <10.10 mg/dL 10/16/2024 9:35 PM CDT [facility] ETHANOL % <0.01 %w/v 10/16/2024 9:35 PM CDT [facility] Blood Venipuncture / Unknown 10/16/2024 6:57 PM CDT 10/16/2024 8:42 PM CDT Marvel Vilchis MD CHEMISTRY ORDERABLES Fi nal Result [facility] CLIA# [id number] [address] [place] [address] * (ABNORMAL) LIPID PANEL (10/16/2024 6:57 PM CDT) CHOLESTEROL 226(H) <200 mg/dL 10/16/2024 9:35 PM CDT [facility] TRIGLYCERIDE 330(H) <150 mg/dL 10/16/2024 9:35 PM CDT [facility] HDL 41 40 - 59 mg/dL 10/16/2024 9:35 PM CDT [facility] LDL CALCULATED 119(H) <100 mg/dL 10/16/2024 9:35 PM CDT [facility] NON-HDL CHOLESTEROL 185(H) <130 mg/dL 10/16/2024 9:35 PM CDT [facility] Blood Venipuncture / Unknown 10/16/2024 6:57 PM CDT 10/16/2024 8:42 PM CDT Narrative [facility] - 10/16/2024 9:35 PM CDT TOTAL CHOLESTEROL mg/dL Desirable <200 Borderline high 200-239 High >=240 TRIGLYCERIDES mg/dL Normal <150 Borderline high 150-199 High 200-499 Very high >=500 HDL CHOLESTEROL mg/dL Low <40 Normal 40-59 Desirable >=60 NON HDL CHOLESTEROL mg/dL Optimal <130 Near Optimal 130-159 Borderline High 160-189 Very High >=190 CALCULATED LDL mg/dL LDL <70, OPTIMAL if have Atherosclerotic cardiovascular disease (ASCVD) or intermediate or higher (>7.5%) 10 year risk of ASCVD including most adults with diabetes. LDL <100, Optimal in adult patients with low (<7.5%) 10 year ASCVD risk LDL 100-160, Suboptimal LDL >160, High LDL >190, Very high LDL calculated using the Friedewald equation. ATPIII Guidelines Reference Ranges for Lipid Panels (NCEP/AMA) . Marvel Vilchis MD CHEMISTRY ORDERABLES nal Result [facility]# [id number] [address] [facility] [place] [address] * (ABNORMAL) COMPREHENSIVE METABOLIC PANEL (10/16/2024 6:57 PM CDT) SODIUM 140 136 - 145 mmol/L 10/16/2024 9:35 PM CDT [facility] - . [facility] POTASSIUM 3.7 3.5 - 5.0 mmol/L 10/16/2024 9:35 PM CDT [facility] - [facility] CHLORIDE 105 98 - 107 mmol/L 10/16/2024 9:35 PM CDT [facility] [facility] - [facility] CO2 24 22 - 29 mmol/L 10/16/2024 9:35 PM CDT [facility] CALCIUM 10.4(H) 8.6 - 10.2 mg/dL 10/16/2024 9:35 PM CDT [facility] - [facility] BUN 17 6 - 20 mg/dL 10/16/2024 9:35 PM CDT [facility] [facility] - . [facility] CREATININE 0.99(H) 0.51 - 0.95 mg/dL 10/16/2024 9:35 PM CDT [facility] [facility] - [facility] GLUCOSE 99 74 - 99 mg/dL 10/16/2024 9:35 PM CDT [facility] TOTAL PROTEIN 7.7 6.7 - 8.6 g/dL 10/16/2024 9:35 PM CDT [facility] ALBUMIN 4.5 3.5 - 5.2 g/dL 10/16/2024 9:35 PM CDT [facility] BILIRUBIN TOTAL 0.3 0.0 - 1.2 mg/dL 10/16/2024 9:35 PM CDT [facility] ALKALINE PHOSPHATASE 101 35 - 104 U/L 10/16/2024 9:35 PM CDT [facility] AST 17 <33 U/L 10/16/2024 9:35 PM CDT [facility] ALT 13 <34 U/L 10/16/2024 9:35 PM CDT [facility] GFR >60 >=60 mL/min/1.7 3 sq meter 10/16/2024 9:35 PM T [facility] Comment:eGFR calculated with 2020 CKD-EPI equation. Vegetarian diet, extremely high or low muscle mass, and may affect results. Cystatin C with Glomerular Filtration Rate is a suitable alternative for these patients. ANION GAP 11 8 - 16 mmol/L 10/16/2024 9:35 PM T [facility] Blood Venipuncture / Unknown 10/16/2024 6:57 PM CDT 10/16/2024 8:42 PM CDT Narrative [facility] - 10/16/2024 9:35 PM CDT Samples containing indocyanine green cause interferences on Total and/or Direct Bilirubin and must not be measured. us Marvel Vilchis MD CHEMISTRY ORDERABLES Fi nal Result [facility] CLIA# [id number] [address] [facility] [place] [place] [address] * DRUG SCREEN, URINE (10/16/2024 6:22 PM CDT) AMPHETAMINE QUAL, URINE Negative Negative 10/16/2024 7:[address] [facility] BARBITURATE QUAL, URINE Negative Negative 10/16/2024 7:09 PM [facility] BENZODIAZEPINE QUAL, URINE Negative Negative 10/16/2024 7:09 PM [facility] COCAINE QUAL URINE Negative Negative 2024 7:09 PM [facility] OPIATE QUAL, URINE Negative Negative 2024 7:09 PM [facility] CANNABINOIDS QUAL, URINE Negative Negative 10/16/2024 7:09 PM [facility] PCP QUAL, URINE Negative Negative 7:09 PM [facility] OXYCODONE QUAL, URINE Negative Negative 10/16/2024 7:09 PM [facility] METHADONE QUAL, URINE Negative Negative 10/16/2024 7:09 PM [facility] FENTANYL QUAL, URINE Negative Negative 10/16/2024 7:09 PM [facility] CREATININE, URINE 157.0 29.0 - 226.0 mg/dL 10/16/2024 7:09 PM [facility] Comment:Reference Range vari es with fluid intake and diet. Urine URINE SPECIMEN OBTAINED BY CLEAN CATCH PROCEDURE / Unknown Collection / Unknown 10/16/2024 6:22 PM CDT 10/16/2024 6:31 PM [facility] - 10/16/2024 7:09 PM [facility] This test is a qualitative screen. The presumptive positive results should not be used for legal purposes. If confirmation of results is desired, the lab must be contacted without delay. Drug Ref. Range Screening Threshold Amphetamines Negative 500 ng/mL Barbiturates Negative 200 ng/mL Benzodiazepines Negative 100 ng/mL Cannabinoids Negative 50 ng/mL Cocaine Negative 150 ng/mL Methadone Negative 300 ng/mL Opiates Negative 300 ng/mL Oxycodone Negative 100 ng/mL Phencyclidine Negative 25 ng/mL Fentanyl Negative 5 ng/mL Marvel Vilchis MD URINE ORDERABLES Final Result [facility]# [id number] [address] [place] [address] * HCG QUALITATIVE, URINE (10/16/2024 6:22 PM CDT) HCG QUAL URINE Negative Negative 10/16/2024 6:52 PM CDT [facility] COLOR UA Yellow Pale to Dark Yellow 10/16/2024 6:52 PM CDT [facility] CLARITY UA Clear Clear 10/16/2024 6:52 PM CDT [facility] Urine URINE SPECIMEN OBTAINED BY CLEAN CATCH PROCEDURE / Unknown Collection / Unknown 10/16/2024 6:22 PM CDT 10/16/2024 6:31 PM CDT Marvel Vilchis MD URINE ORDERABLES Final Result Performing Organization Address [facility] Co de Phone Number [facility]# [id number] [address] [place] [address] from Last 3 Months Insurance AETNA CHOICE POS II AETNA CHOICE POS II * Guarantor: OLD AC[employer]-OCC MED [facility] (OM) Account Type Relation to Patient Date of Phone Billing Address Corporate Other [id number] [address] Advance Directives For more information, please contact: [phone] Documents on File Type Date Recorded Patient Security Attendant Expl anation Advance Directive POA 10/28/2017 8:52 PM * Full Code (Latest Code Status on File) Date Activated Date Inactivated Comments 10/16/2024 1:58 PM 10/20/2024 5:28 PM * Full Code Date Activated Date Inactivated Comments 10/15/2024 8:26 AM 10/16/2024 1:58 PM * Full Code Date Activated Date Inactivated Comments 09/14/2019 9:43 PM 09/15/2019 5:49 PM * Full Code Date Activated Date Inactivated Comments 06/22/2019 9:20 PM 06/27/2019 1:38 PM * Full Code Date Activated Date Inactivated Comments 08/31/2018 6:34 PM 09/06/2018 8:[address] Lab Technician Relationship Specialty Start Date End Date Anupam Oconnell DO PCP - General Family Practice 05/22/13
--- OUTSIDE RECORDS SUMMARY | 2024-10-23 18:56 | XMS_ITS | Encounter Summary ---
Author Organization [facility] Facility Care Team Providers Care Char Conveyor Tender Name Role Phone Anupam Rae DO Primary Care Provider + Ronal Wallace DO Unavailable [phone] Chuck Medeiros DO Unavailable Noy Nunez CORPORATE QUALITY MANAGER Unavailable [phone] Krystina Perea MD Unavailable Harika Guerra RN Unavailable [phone] Jose Alberto Garcia Unavailable [phone] Anupam Rae DO Primary Care Provider + Encounter Details Date Type Department Care Team (Latest Contact Info) Description 07/12/2014 Orders Only [facility] CLINCONV ProviderMercedes MD [address] [place] [id number] Social History Tobacco Use Types Packs/Day Years Used Date Smoking Tobacco: Never Assessed Comments Unknown Sex and Gender Information Value Date Recorded Sex Assigned at Not on file Legal Sex Female 5:07 PM YOUTH LEADER Gender Identity Female 12/23/2020 2:56 PM YOUTH LEADER Sexual Orientation Straight 12/23/2020 2: 56 PM YOUTH LEADER documented as of this encounter Plan of [...] Suspected 07/13/2022 07/13/2022 07/13/2022 1:11 PM CDT COVID: Suspected 05/27/2024 05/27/2024 05/27/2024 7:20 PM CDT COVID: Suspected 06/28/2024 06/29/2024 06/29/2024 12:59 AM CDT documented as of this encounter Care Teams Char Conveyor Tender Relationship Specialty Start Date End Date Anupam Rae, PCP - General Family Medicine 05/23/18 05/28/24 Anupam Rae, [address] [place] [address] [address] [place] [address] PCP - General Family Medicine 05/29/24 Ronal Wallace DO [address] [place] [address] Referring Physician Psychiatry 10/17/20 04/05/23 Chuck Medeiros, DO [address] [place], [place] [id number] Consulting Physician Obstetrics and Gynecology 10/29/20 04/05/23 Noy Nunez NP [address] [place] [address] Medical Oncologist/Geothermal Powerplant Supervisor Medical Oncology 02/14/21 Krystina Perea MD [address] [place] [address] Consulting Physician Pain Management 10/27/22 Harika Guerra RN [address] [place] [address] [address] [place] [address] Academic Support Specialist 11/22/22 12/28/22 Jose Alberto Garcia PA [address] [place] [address] [address] [place] [address] Physician Greenskeeper Supervisor Emergency Medicine 04/05/23 4 documented as of this encounter
--- OUTSIDE RECORDS SUMMARY | 2024-10-23 18:56 | XMS_ITS | Encounter Summary ---
Author Organization [facility] Address [address] [place] [address] Care Team Providers Care Mail Clerk Name Role Phone Anupam Rae DO Primary Care Provider + Roanl Wallace DO Unavailable [phone] Chuck Medeiros DO Unavailable [phone] Noy Nunez NP Unavailable + [phone] Krystina Perea MD Unavailable Jose Alberto Garcia Unavailable [phone] Anupam Rae DO Primary Care Provider + Encounter Details Date Type Department Care Team (Late st Contact Info) Description 02/22/2023 Documentation [facility] OP Physical Therapy [facility] [address] Lissette Onofre, PT Social History [...] or ex-partner? No 04/26/2021 Social Connection and Isolation Panel Answer Date Recorded In a typical week, how many times do you talk on the phone with family, friends, or neighbors? More than three times a week 11/25/2022 How often do you get togethe r with friends or relatives? More than three times a week 11/25/2022 How often do you attend [facility] or yazdanism services? Never 11/25/2022 Do you belong to any clubs o r organizations such as congregation groups, unions, fraternal or athletic groups, or [...] staff should administer the PHQ-9) 2 03/30/2022 [facility] - Occupational [...] place to sleep or slept in a alf (including now)? No 11/25/2022 Personal Safety Answer Date Recorded Getting School Help Needed Denies 01/18 Comments No Sex and Gender Information Value Date Recorded Sex Assigned at Not on file Legal Sex Female 5:07 PM VICE PRESIDENT INVESTOR RELATIONS Gender Identity Female 12/23/2020 2:56 PM VICE PRESIDENT INVESTOR RELATIONS Sexual Orientation Straight 12/23/2020 2: 56 PM VICE PRESIDENT INVESTOR RELATIONS documented as of this encounter Plan of [...] Infection Onset Date Last Indicated Resolved Time COVID: Suspected 05/27/2024 05/27/2024 05/27/2024 7:20 PM CDT COVID: Suspected 06/28/2024 06/29/2024 06/29/2024 12:59 AM CDT documented as of this encounter Care Teams Mail Clerk Relationship Specialty Start Date End Date Anupam Rae, PCP - General Family Medicine 05/23/18 05/28/24 Anupam Rae, [address] [place] [address] PCP - General Family Medicine 05/29/24 Ronal Wallace DO [address] [place] [address] Referring Physician Psychiatry 10/17/20 04/05/23 Chuck Medeiros, [address] [place] [address] Consulting Physician Obstetrics and Gynecology 10/29/20 04/05/23 Noy Nunez, HEIDI [address] [place] [address] Medical Oncologist/Butcher Or Smallgoods Maker Medical Oncology 02/14/21 Krystina Perea MD [address] [place] [address] Consulting Physician Pain Management 10/27/22 Jose Alberto Garcia PA [address] [place] [address] Physician Utility Spray Operator Emergency Medicine 04/05/23 4 documented as of this encounter
--- OUTSIDE RECORDS SUMMARY | 2024-10-23 18:56 | XMS_ITS | Encounter Summary ---
Author Organization [facility] Care Team Providers Care Concrete Saw Operator Name Role Phone Anupam Rae DO Primary Care Provider + Ronal Wallace DO Unavailable [phone] Chuck Medeiros DO Unavailable Noy Nunez SUPERVISOR COMPOUNDING AND FINISHING Unavailable [phone]- [phone] Krystina Perea MD Unavailable Harika Guerra RN Unavailable [phone] Jose Alberto Garcia Unavailable [phone] Anupam Rae DO Primary Care Provider + Encounter Details Date Type Department Care Team (Latest Contact Info) Description 05/13/2015 Orders Only [facility] CLINCONV ProviderMercedes MD [address] [place] [address] Social History Tobacco Use Types Packs/Day Years Used Date Smoking Tobacco: Never Assessed Comments Unknown Sex and Gender Information Value Date Recorded Sex Assigned at Not on file Legal Sex Female 5:07 PM BAG LOADER Gender Identity Female 12/23/2020 2:56 PM BAG LOADER Sexual Orientation Straight 12/23/2020 2: 56 PM BAG LOADER documented as of this encounter Plan of [...] documented as of this encounter Care Teams Concrete Saw Operator Relationship Specialty Start Date End Date Anupam Rae, PCP - General Family Medicine 05/23/18 05/28/24 Anupam Rae, [address] [place] [address] [address] [place] [address] PCP - General Family Medicine 05/29/24 Ronal Wallace DO [address] [facility] [address] [place] [address] Referring Physician Psychiatry 10/17/20 04/05/23 Chuck Medeiros DO [address] [facility] [address] [place] [address] Consulting Physician Obstetrics and Gynecology 10/29/20 04/05/23 Noy Nunez NP [address] [facility] [address] [place] [address] Medical Oncologist/Gastroenterologist Medical Oncology 02/14/21 Krystina Perea MD [address] [facility] [address] [place] [address] Consulting Physician Pain Management 10/27/22 Harika Guerra RN [address] [place] [address] [address] [place] [address] Ceramics Engineer 11/22/22 12/28/22 Jose Alberto Garcia PA [address] [place] [address] [address] [place] [address] Physician Dye Beck Reel Operator Emergency Medicine 04/05/23 4 documented as of this encounter
--- OUTSIDE RECORDS SUMMARY | 2024-10-23 18:56 | XMS_ITS | Encounter Summary ---
Author Organization [facility] Care Team Providers Care Child Care Sitter Name Role Phone Anupam Rae DO Primary Care Provider + Ronal Wallace DO Unavailable [phone] Chuck Medeiros DO Unavailable [phone] Noy Nunez SIGNAL WIRER Unavailable [phone]- [phone] Krystina Perea MD Unavailable Harika Gurera RN Unavailable [phone] Jose Alberto Garcia Unavailable [phone] Anupam Rae DO Primary Care Provider + Encounter Details Date Type Department Care Team (Latest Contact Info) Description 05/16/2015 Orders Only [facility] CLINCONV ProviderMercedes MD [address] [place] [address] Social History Tobacco Use Types Packs/Day Years Used Date Smoking Tobacco: Never Assessed Comments Unknown Sex and Gender Information Value Date Recorded Sex Assigned at Not on file Legal Sex Female 5:07 PM OUTPATIENT PSYCHIATRIST Gender Identity Female 12/23/2020 2:56 PM OUTPATIENT PSYCHIATRIST Sexual Orientation Straight 12/23/2020 2: 56 PM OUTPATIENT PSYCHIATRIST documented as of this encounter Plan of [...] AM CDT Ordered by an unspecified provider. [facility] Provider Final Res ult * SCAN - LABS (05/16/2015 12:00 AM CDT) Narrative 05/16/2015 12:00 AM CDT Ordered by an unspecified provider. [facility] Provider Final Res ult * SCAN - LABS (05/16/2015 12:00 AM CDT) Narrative 05/16/2015 12:00 AM CDT Ordered by an unspecified provider. [facility] Provider MD Final Res ult * SCAN - LABS (05/16/2015 12:00 AM CDT) Narrative 05/16/2015 12:00 AM CDT Ordered by an unspecified provider. [facility] Provider Final Res ult * SCAN - LABS (05/16/2015 12:00 AM CDT) Narrative 05/16/2015 12:00 AM CDT Ordered by an unspecified provider. [facility] Provider Final Res ult documented in this encounter Visit Diagnoses Not on filedocumented in this encounter Additional Health Concerns Infection Onset Date Last Indicated Resolved Time COVID19 11/06/2019 11/06/2019 11/20/2019 3:06 AM CDT COVID: Recovered Comment:Added based on recent COVID infection. 11/20/2019 11/23/201903/19/2020 3:[address] COVID: Suspected 07/13/2022 07/13/2022 07/13/2022 1:11 PM CDT COVID: Suspected 05/27/2024 05/27/2024 05/27/2024 7:20 PM CDT COVID: Suspected 06/28/2024 06/29/2024 06/29/2024 12:59 AM CDT documented as of this encounter Care Teams Child Care Sitter Relationship Specialty Start Date End Date Anupam Rae DO PCP - General Family Medicine 05/23/18 05/28/24 Anupam Rae DO [address] [place] [address] [address] [place] [address] PCP - General Family Medicine 05/29/24 Ronal Wallace DO [address] [facility] [address] [place] [address] Referring Physician Psychiatry 10/17/20 04/05/23 Chuck Medeiros, [address] [facility] [address] [place] [address] Consulting Physician Obstetrics and Gynecology 10/29/20 04/05/23 Noy Nunez, SIGNAL WIRER [address] [facility] [address] [place] [address] Medical Oncologist/Clinical Rn Medical Oncology 02/14/21 Krystina Perea MD [address] [facility] [address] [place] [address] Consulting Physician Pain Management 10/27/22 Harika Guerra RN [address] [facility] [address] [place] [address] Roller Engraver 11/22/22 12/28/22 Jose Alberto Garcia PA [address] [facility] [address] [place] [address] Physician Customer Relations Consultant Emergency Medicine 04/05/23 4 documented as of this encounter
--- OUTSIDE RECORDS SUMMARY | 2024-10-23 18:56 | XMS_ITS | Encounter Summary ---
Author Organization [facility] Care Team Providers Care Customs Compliance Manager Name Role Phone Anupam Rae DO Primary Care Provider + Ronal Wallace DO Unavailable [phone] Chuck Medeiros DO Unavailable Noy Nunez DEAN OF GRADUATE STUDIES Unavailable [phone]- [phone] Krystina Perea MD Unavailable Harika Guerra RN Unavailable [phone] Jose Alberto Garcia Unavailable [phone] Anupam Rae DO Primary Care Provider + Encounter Details Date Type Department Care Team (Latest Contact Info) Description 04/11/2014 Orders Only [facility] CLINCONV ProviderMercedes MD [address] [place] [address] Social History Tobacco Use Types Packs/Day Years Used Date Smoking Tobacco: Never Assessed Comments Unknown Sex and Gender Information Value Date Recorded Sex Assigned at Not on file Legal Sex Female 5:07 PM ALL SOURCE COLLECTION MANAGER Gender Identity Female 12/23/2020 2:56 PM ALL SOURCE COLLECTION MANAGER Sexual Orientation Straight 12/23/2020 2: 56 PM ALL SOURCE COLLECTION MANAGER documented as of this encounter Plan of [...] documented as of this encounter Care Teams Customs Compliance Manager Relationship Specialty Start Date End Date Anupam Rae DO PCP - General Family Medicine 05/23/18 05/28/24 Anupam Rae DO [address] [facility] [address] [place] [address] PCP - General Family Medicine 05/29/24 Roanl Wallace DO [address] [facility] [address] [place] [address] Referring Physician Psychiatry 10/17/20 04/05/23 Chuck Medeiros DO [address] [facility] [address] [place] [address] Consulting Physician Obstetrics and Gynecology 10/29/20 04/05/23 Noy Nunez, HEIDI [address] [facility] [address] [place] [address] Medical Oncologist/Land Measurer Medical Oncology 02/14/21 Krystina Perea MD [address] [facility] [address] [place] [address] Consulting Physician Pain Management 10/27/22 Harika Guerra, GILBERT [address] [place] [address] [address] [place] [address] Roller Varnisher 11/22/22 12/28/22 Jose Alberto Garcia PA [address] [place] [address] [address] [place] [address] Physician Health Care Liaison Emergency Medicine 04/05/23 4 documented as of this encounter
--- OUTSIDE RECORDS SUMMARY | 2024-10-23 18:56 | XMS_ITS | Encounter Summary ---
Author Organization [facility] Care Team Providers Care Signal And Communications Maintainer Name Role Phone Anupam Rae DO Primary Care Provider + Ronal Wallace DO Unavailable [phone] Chuck Medeiros DO Unavailable Noy Nunez REBAR WORKER Unavailable [phone]- [phone] Krystina Perea MD Unavailable Harika Guerra RN Unavailable [phone] Jose Alberto Garcia Unavailable [phone] Anupam Rae DO Primary Care Provider + Encounter Details Date Type Department Care Team (Latest Contact Info) Description 08/15/2012 Orders Only [facility] CLINCONV ProviderMercedes MD [address] [place] [address] Social History Tobacco Use Types Packs/Day Years Used Date Smoking Tobacco: Never Assessed Comments Unknown Sex and Gender Information Value Date Recorded Sex Assigned at Not on file Legal Sex Female 5:07 PM MANAGER SURGICAL Gender Identity Female 12/23/2020 2:56 PM MANAGER SURGICAL Sexual Orientation Straight 12/23/2020 2: 56 PM MANAGER SURGICAL documented as of this encounter Plan of [...] documented as of this encounter Care Teams Signal And Communications Maintainer Relationship Specialty Start Date End Date Anupam Rae, PCP - General Family Medicine 05/23/18 05/28/24 Anupam Rae, [address] [place] [address] [address] [place] [address] PCP - General Family Medicine 05/29/24 Ronal Wallace DO [address] [facility] [address] [place] [address] Referring Physician Psychiatry 10/17/20 04/05/23 Chuck Medeiros DO [address] [facility] [address] [place] [address] Consulting Physician Obstetrics and Gynecology 10/29/20 04/05/23 Noy Nunez NP [address] [facility] [address] [place] [address] Medical Oncologist/High Density Press Laborer Medical Oncology 02/14/21 Krystina Perea MD [address] [facility] [address] [place] [address] Consulting Physician Pain Management 10/27/22 Harika Guerra RN [address] [place] [address] [address] [place] [address] Pump House Engineer 11/22/22 12/28/22 Jose Alberto Garcia PA [address] [place] [address] [address] [place] [address] Physician Sales Effectiveness Manager Emergency Medicine 04/05/23 4 documented as of this encounter
--- OUTSIDE RECORDS SUMMARY | 2024-10-23 18:57 | XMS_ITS | Clinical Summary ---
Author Organization [facility] Address [address] [place] [address] Care Team Providers Care Loan Servicing Representative Name Role Phone Noy Nunez NP Unavailable [phone] Krystina Perea MD Unavailable Anupam Rae DO Primary Care Provider + Allergies Active Allergy Reactions Criticality Noted Date Comments Codeine Unknown 05/22/2013 Pt doesn't remember symptoms Medications FLUoxetine (PROzac) 20 mg capsule Take 3 capsules (60 mg total) by mouth daily 8 Active ARIPiprazole (ABILIFY) 15 mg tablet Take 1 tablet (15 mg total) by mouth daily [address] (PROTONIX) 40 mg EC tablet TAKE 1 TABLET DAILY 90 tablet 3 Active amLODIPine (NORVASC) 5 mg tablet TAKE 1 TABLET DAILY 90 tablet 3 Active metoprolol XL (TOPROL-XL) 100 mg 24 hr tablet TAKE 1 TABLET DAILY 90 tablet 3 Active tirzepatide, weight loss, (Zepbound) 5 mg/0.5 mL pen injector Inject 0.5 mL (5 mg total) under the skin every 7 days Wednesday 7.5mg Active traMADoL (ULTRAM) 50 mg tablet Take 1 tablet (50 mg total) by mouth every 12 (twelve) hours as needed for pain Active cyclobenzaprine (FLEXERIL) 5 mg tablet Take 1 tablet (5 mg total) by mouth 2 (two) times a day as needed for muscle spasms Active buPROPion XL (WELLBUTRIN XL) 300 mg 24 hr tablet Take 1 tablet (300 mg total) by mouth daily Active gabapentin (NEURONTIN) 600 mg tablet Take 1 tablet (600 mg total) by mouth 2 (two) times a day Active acetaminophen (TYLENOL) 325 mg tablet Take 2 tablets (650 mg total) by mouth every 6 (six) hours as needed for pain 5 Active ondansetron ODT (ZOFRAN-ODT) 4 mg disintegrating tablet Take 1-2 tablets (4-8 mg total) by mouth every 8 (eight) hours as needed for nausea or vomiting 20 tablet 5 Active orphenadrine ER (NORFLEX) 100 mg 12 hr tablet 2 (two) times a day as needed Active Zepbound 7.5 mg/0.5 mL pen injector 5 Active Active Problems Problem Noted Date Diagnosed Date Meningioma 05/27/2024 Weakness 05/25/2024 Toenail fungus 11/16/2022 Assessment & Plan (11/16/2022 [...] PT/OT. Pain control with Percocet, Orphenadrine. Dr. Perea fu Wednesday. Progressing well with tx. Assessment & [...] 10/16/2021 Assessment & Plan (03/30/2022 11:37 AM LONG TERM CARE SOCIAL WORKER): Will continue with auto titrating CPAP set [...] 07/27/2016 Assessment & Plan (12/19/2019 2:31 PM LONG TERM CARE SOCIAL WORKER): Patient is well controlled. Continue current treatment. Gastroesophageal reflux disease 05/24/2013 Assessment & Plan (11/09/2022 5:11 PM CDT): This problem is chronic and stable I have ordered Protonix Assessment & Plan (12/12/2018 11:00 AM LONG TERM CARE SOCIAL WORKER): Patient is well controlled. Continue current treatment. [...] (08/01/2020): Added automatically from request for surgery [id number] Pre-op exam 07/29/2020 11/21/2020 Assessment & Plan [...] 11/21/2020 Assessment & Plan (01/11/2019 3:48 PM LONG TERM CARE SOCIAL WORKER): Mammogram No caffeine Tylenol arthritis Peripheral edema 12/12/2018 12/10/2020 Assessment & Plan (12/19/2019 2:34 PM LONG TERM CARE SOCIAL WORKER): Lab Decrease amlodipine to 5 mg daily Assessment & Plan (12/12/2018 10:59 AM LONG TERM CARE SOCIAL WORKER): Lab Respiratory infection 10/20/20182020 Assessment & Plan [...] amlodipine Assessment & Plan (12/19/2019 2:31 PM LONG TERM CARE SOCIAL WORKER): Patient is well controlled. Continue current treatment. Assessment & Plan (11/27/2019 11:51 AM CDT): Patient is well controlled. Continue current treatment. Assessment & Plan (11/24/2019 9:13 AM CDT): Patient is well controlled. Continue current treatment. Assessment & Plan (07/18/2019 9:28 AM CDT): Patient is well controlled. Continue current treatment. Assessment & Plan (12/12/2018 11:00 AM LONG TERM CARE SOCIAL WORKER): Patient is well controlled. Continue current treatment. Assessment & Plan (08/15/2018 12:04 PM CDT): Patient is well controlled. Continue current treatment. Assessment & Plan (07/11/2018 12:01 PM CDT): Patient is well controlled. Continue current treatment. Encounters Date Type Department Care Team Description 09/12/2024 2:15 PM CDT Therapy [facility] Medical Office Bldg 1 OP Physical Therapy [address] [place] [address] [place] [address] Manjula Fonseca, DREDGE HAND Meningioma (HCC) (Primary Dx) 09/08/2024 3:30 PM CDT Office Visit [facility] Medicine Neurosurgery [address] [facility] Floor 1, [address] [place] [id number] Domingo Durbin MD Meningioma (HCC) (Primary Dx) 09/08/2024 1:45 PM CDT - 09/08/2024 11:59 PM CDT Hospital Encounter [facility] - MRI [address] [facility] Floor 8 [place] [address] Meningioma (HCC) Discharge Disposition: Discharge to home or self care 09/08/2024 Orders Only [facility] Medicine Neurosurgery [address] [facility] Floor 1, [address] [place] [phone] Ladi Macedo, HEIDI Meningioma (HCC) (Primary Dx) 09/05/2024 1:30 PM CDT Therapy [facility] Medical Office Bldg 1 OP Physical Therapy [address] [place] [address] [place] [phone] Manjula Fonseca, DREDGE HAND Meningioma (HCC) (Primary Dx) 08/24/2024 11:00 AM CDT Therapy [facility] Medical Office Bldg 1 OP Physical Therapy [address] [place] [address] [place] [address] Nubia Stanley, PT Meningioma (HCC) (Primary Dx) 08/22/2024 3:00 PM CDT Therapy [facility] Medical Office Bldg 1 OP Physical Therapy [address] [place] [address] [place] [address] Manjula Fonseca, DREDGE HAND Meningioma (HCC) (Primary Dx) 08/22/2024 2:00 PM CDT Therapy [facility] Medical Office Bldg 1 OP Occupational Therapy [address] [place] [address] Street [address] [place] [address] Clau Becker, OT Meningioma (HCC) (Primary Dx) 08/17/2024 3:00 PM CDT Therapy [facility] Medical Office Bldg 1 OP Occupational Therapy [address] [place] [address] [address] [place] [phone] Clau Becker, OT Meningioma (HCC) (Primary Dx) 08/17/2024 2:15 PM CDT Therapy [facility] Medical Office Bldg 1 OP Physical Therapy [address] [place] [address] [address] [place] [phone] Peggy Rodriguez, DREDGE HAND Meningioma (HCC) (Primary Dx) 08/15/2024 1:30 PM CDT Therapy [facility] Medical Office Bldg 1 OP Physical Therapy [address] [place] [address] [place] [address] Jadiel Abad, DREDGE HAND Meningioma (HCC) (Primary Dx) 08/08/2024 3:00 PM CDT Therapy [facility] Medical Office Bldg 1 OP Physical Therapy [address] [place] [address] [place] [address] Jovita Churchill, DREDGE HAND Meningioma (HCC) (Primary Dx) 08/08/2024 2:00 PM CDT Therapy [facility] Medical Office Bldg 1 OP Occupational Therapy [address] [place] [address] [place] [address] Clau Becker, OT Meningioma (HCC) (Primary Dx) 08/03/2024 2:15 PM CDT Therapy [facility] Medical Office Bldg 1 OP Physical Therapy [address] [place] [address] [place] [phone] Sarah Christianson, DREDGE HAND Meningioma (HCC) (Primary Dx) 08/03/2024 1:00 PM CDT Therapy [facility] Medical Office Bldg 1 OP Occupational Therapy [address] [place] [address] [place] [phone] Clau Becker, OT Meningioma (HCC) (Primary Dx) 08/01/2024 1:30 PM CDT Therapy [facility] Medical Office Bldg 1 OP Physical Therapy [address] [place] [address] [place] [address] Harrah, Carlyn, DREDGE HAND Meningioma (HCC) (Primary Dx) 07/27/2024 3:00 PM CDT Therapy [facility] Medical Office Bl 1 OP Physical Therapy [address] [place] [address] [place] [address] Harrah, Carlyn, DREDGE HAND Meningioma (HCC) (Primary Dx) 07/24/2024 3:00 PM CDT Therapy [facility] Medical Office Bldg 1 OP Physical Therapy [address] [place] [address] [place] [phone] Manjula Fonseca, DREDGE HAND Meningioma (HCC) (Primary Dx); Encounter for follow-up examination after completed treatment for conditions other than malignant neoplasm 07/24/2024 2:00 PM CDT Therapy [facility] Medical Office [facility] 1 OP Occupational Therapy [address] [place] [address] [place] [phone] Clau Becker OT Meningioma (HCC) (Primary Dx) from Last 3 Months Immunizations Immunization Administration [...] found reason for anemia Dissociative identity disorder Last menstrual period (LMP) > 10 days ago Pt says LMP greater than one year ago Vaginal delivery x 2 Intentional drug overdose (HCC) 04/26/2021 Tumor Left sided benig n brain tumor. Family History Medical History Relation Name Comments [...] 11/25/2022 How often do you attend chur ch or sikh services? Never 11/25/2022 Do you belong to any clubs o r organizations such as evangelical groups, unions, fraternal or athletic groups, or [...] staff should administer the PHQ-9) 2 03/30/2022 [facility] - Occupational Stress Questionnaire Answer Date [...] place to sleep or slept in a prison (including now)? No 11/25/2022 Personal Safety Answer Date Recorded Have you ever been in or are you currently in a harmful physical or emotional relationship or is someone making you feel afraid or unsafe? Denies 06/28/2024 Comments No Sex and Gender Information Value Date Recorded Sex Assigned at Not on file Legal Sex Female 5:07 PM LONG TERM CARE SOCIAL WORKER Gender Identity Female 12/23/2020 2:56 PM LONG TERM CARE SOCIAL WORKER Sexual Orientation Straight 12/23/2020 2: 56 PM LONG TERM CARE SOCIAL WORKER Obstetrics History Para Term AB IAB SAB Ectopic Multiple Livin g Live Births 2 2 2 2 Date Outcome GA Total Labor Labor/2nd/3rd Weight Sex Type Anes PTL Ramona A1 A5 Name Clin Term Term Last Filed Vital Signs Vital Sign Reading Time Taken Comments Blood Pressure 119/84 09/08/2024 3:21 PM CDT Pulse 79 09/08/2024 3:21 PM CDT Temperature 36.6 C (97.9 F) 09/08/2024 3:21 PM CDT Respiratory Rate 18 09/08/2024 3:21 PM CDT Oxygen Saturation 94% 09/08/2024 3:21 PM CDT Inhaled Oxygen Concentration - - Weight 98.9 kg (218 lb) 09/08/2024 3:21 PM CDT Height 165.1 cm (5' 5) 09/08/2024 3:21 PM CDT Body Mass Index 36.28 09/08/2024 3:21 PM CDT Plan of Treatment Health Maintenance Due Date Last Done Comments Hepatitis C Screening 1970 DTaP/Tdap/Td Vaccine (1 - Tdap) 1981 Hepatitis B Screening 02/22/1988 Zoster Vaccine (1 of 2) 02/22/2020 Depression Screening 03/30/2023 03/30/2022, 11/21/2020, 12/19/2019, Additional history exists Regular Well Visit/Exam 18-64 07/14/2023 07/13/2022, 06/21/2020 Covid-19 Vaccine ( season) 2024 06/24/2020, 06/05/2020, 05/10/2020, Additional history exists Influenza Vaccine (#1) 2024 , 11/30/2022, 12/28/2019, Additional history exists Breast Cancer Screening-Mammogram 06/20/2025 06/20/2024, 06/20/2024, 04/30/2023, Additional history exists Colon Cancer Screening-Colonoscopy 05/08/2026 05/08/2021 Cervical Cancer Screening Discontinued 06/21/2020 Pneumococcal vaccine <65 Aged Out No longer [...] Procedure Name Priority Date/Time Associated Diagnosis Comments MRI BRAIN W WO CONTRAST Schedule Routine, Read Routine (OP Routine) 09/08/2024 3:05 PM CDT Meningioma (HCC) SCREENING MAMMOGRAM BILATERAL W ABDI Schedule Routine, Read Routine (OP Routine) 06/20/2024 1:46 PM CDT Screening mammogram, encounter for COLONOSCOPY Routine 05/08/2021 THINPREP PAP WITH HPV Routine 06/21/2020 3:35 PM CDT Screening for cervical cancer from Last 3 Months or Most Recently Relevant to Health Maintenance Results * MRI Brain W WO Contrast (09/08/2024 3:05 PM CDT) Anatomical Region Laterality Modality Head and Neck N/A Magnetic Resonan ce 09/08/2024 4:10 PM CDT Impressions 09/08/2024 5:08 PM CDT 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 Dictated by: Alfonzo Wilson MD The radiology attending physician has personally reviewed this study, and had reviewed and/or edited this written report and agrees with it. Electronically signed by: Loren Gatica M.D. Narrative 09/08/2024 5:08 PM CDT EXAMINATION: Magnetic resonance imaging (MRI) of the brain and brainstem without and with contrast HISTORY: Left frontal meningioma. Follow-up imaging. TECHNIQUE: Multiplanar multi-weighted MRI of the brain and brainstem was performed without and with intravenous contrast using the general brain protocol. Contrast information: 20 mL Gadoterate Meglumine IV COMPARISON: 05/26/2024, 05/25/2024 FINDINGS: There is an avidly enhancing dural based calcified mass in the left supraorbital inferior frontal lobe measuring up to 2.1 x 1.6 cm. There is mild hyperostosis of the orbital roof. The scalp is normal. The superior sagittal sinus demonstrates normal venous flow. The corpus callosum is normal in shape and signal intensity. The posterior fossa is unremarkable. The pituitary and sella are normal. The brainstem and craniocervical junction are unremarkable. Diffusion weighted images reveal no hyperintensities to suggest acute cerebral infarction. The susceptibility weighted sequences reveal no evidence of acute or chronic hemorrhage. The ventricles are normal in size and position without evidence of hydrocephalus. The paranasal sinuses are normal. The visualized portions of the mastoids are unremarkable. The orbits appear normal. Normal flow voids are demonstrated in the carotid arteries. Tortuous vertebrobasilar system with mass effect upon the carmen. Procedure Note Loren Gatica MD - 09/08/2024 EXAMINATION: Magnetic resonance imaging (MRI) of the brain and brainstem without and with contrast HISTORY: Left frontal meningioma. Follow-up imaging. TECHNIQUE: Multiplanar multi-weighted MRI of the brain and brainstem was performed without and with intravenous contrast using the general brain protocol. Contrast information: 20 mL Gadoterate Meglumine IV COMPARISON: 05/26/2024, 05/25/2024 FINDINGS: There is an avidly enhancing dural based calcified mass in the left supraorbital inferior frontal lobe measuring up to 2.1 x 1.6 cm. There is mild hyperostosis of the orbital roof. The scalp is normal. The superior sagittal sinus demonstrates normal venous flow. The corpus callosum is normal in shape and signal intensity. The posterior fossa is unremarkable. The pituitary and sella are normal. The brainstem and craniocervical junction are unremarkable. Diffusion weighted images reveal no hyperintensities to suggest acute cerebral infarction. The susceptibility weighted sequences reveal no evidence of acute or chronic hemorrhage. The ventricles are normal in size and position without evidence of hydrocephalus. The paranasal sinuses are normal. The visualized portions of the mastoids are unremarkable. The orbits appear normal. Normal flow voids are demonstrated in the carotid arteries. Tortuous vertebrobasilar system with mass effect upon the carmen. 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 Dictated by: Alfonzo Wilson MD The radiology attending physician has personally reviewed this study, and had reviewed and/or edited this written report and agrees with it. Electronically signed by: Loren Gatica M.D. [facility] MRI PROCEDURES Final Result * Screening Mammogram Bilateral W Abdi (06/20/2024 1:46 PM CDT) Anatomical Region Laterality Modality Breast Bilateral Mammography Impressions 06/20/2024 4:24 PM CDT Bilateral No evidence of malignancy in either breast. OVERALL BI-RADS FINAL ASSESSMENT: 2 - Benign RECOMMENDATION: Recommend bilateral annual screening mammography. Narrative 06/20/2024 4:24 PM CDT EXAMINATION: Screening Mammogram Bilateral W Abdi: 06/20/2024 COMPARISON: Relevant prior studies available at the time of interpretation were reviewed. TECHNIQUE: Mammography was performed with 2D and digital breast tomosynthesis (DBT) images. CAD was utilized. BREAST PARENCHYMAL COMPOSITION: The breasts are heterogeneously dense, which may obscure small masses. FINDINGS: Bilateral There is no suspicious mass, calcification, or architectural distortion in either breast.There are benign calcifications in both breasts. us Self Screening Mammogram IMG MAMMO PROCEDURES Fi nal Result * Colonoscopy (05/08/2021) Anatomical Region Laterality Modality Other us Historical Provider ENDOSCOPY PROCEDURES Emmie l Result * (ABNORMAL) ThinPrep Pap with HPV (06/21/2020 3:35 PM CDT) Pap test 06/21/2020 3:35 PM CDT 06/24/2020 11:36 AM CDT Narrative 06/27/2020 9:56 AM CDT [facility] Department of Pathology [address] [place] [address] Final Report with Addendum Patient Name: SANDRA SOLIMAN Address: [address] [place] [address] Gender: F : 1970 (Age: 50) Service: Laboratory Location: Lab [facility] #: [id number] Patient Type: Ref Lab Taken: 06/21/2020 Received: 06/24/2020 Accessioned:: 06/25/2020 Reported: 06/27/2020 Physician(s): Dr. Chuck Medeiros D.O. [facility] Diagnosis: Source of Specimen: Screening ThinPrep Imaged [...] Electronically Reviewed and Signed Out By [facility]) 06/26/2020 11:54:38 Specimen(s) Received: A: Screening ThinPrep [...] determined by the Surgical Pathology Department at [facility] as part of an ongoing quality control head program and in compliance with federally mandated [...] determined by the Surgical Pathology Department [facility]. It has not been cleared or approved by the [place]. S. Food and Drug Administration. 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 Expl anation ADVANCE DIRECTIVE 05/26/2024 10:02 AM [place] r of Hvac Service Technician-Medical * Full Code (Latest Code Status on File) Date Activated Date Inactivated Comments 05/25/2024 1:22 PM 05/28/2024 12:02 AM * Full Code Date Activated Date Inactivated Comments 10/28/2022 9:33 PM 11/08/2022 3:36 PM * Full Code Date Activated Date Inactivated Comments 04/26/2021 8:53 AM 04/29/2021 5:42 PM * Full Code Date Activated Date Inactivated Comments 08/24/2020 4:20 PM 08/27/2020 1:36 PM Care Teams Loan Servicing Representative Relationship Specialty Start Date End Date Anupam Rae DO PCP - General Family Medicine 05/29/24 Noy Nunez, HEIDI Medical Oncologist/Profile Saw Operator Medical Oncology 02/14/21 Krystina Perea MD Consulting Physician Pain Management 10/27/22
== END 2024-10-23 16:57 | disposition home or self-care (01) ==
PROVIDERS: Emergency Provider Nurse Practitioner Family; PCP Family Medicine
DX: R22.43 Localized swelling, mass and lump, lower limb, bilateral (principal); K21.9 Gastro-esophageal reflux disease without esophagitis; F41.9 Anxiety disorder, unspecified; F32.A Depression, unspecified
CPT/HCPCS: 99211; G0463